=== PATIENT | female | born 1945 | race Caucasian/White ===

== ENCOUNTER → 2017-09-27 | Outpatient (CLI) | payer OTHER | END | disposition home or self-care (01) | LOC: C.PAPS 16:52 | PROVIDERS: ATTEND Obstetrics & Gynecology | DX: Z12.4 Encounter for screening for malignant neoplasm of cervix (principal) ==

== ENCOUNTER 2021-09-08 05:03 | Observation (INO) ==
--- NOTE | 2021-04-04 15:57 | PAT Medication Instructions ---
Medication Instructions Date of Service April 04, 2021 Home Medications amlodipine 2.5 mg tablet 2.5 mg PO QAM aspirin 81 mg tablet,delayed release (Adult Aspirin Regimen) 81 mg PO PM empagliflozin 25 mg tablet (Jardiance) 25 mg PO QAM glimepiride 4 mg tablet 4 mg PO QAM levothyroxine 75 mcg tablet (Levo-T) 75 mcg PO QAM lisinopril 20 mg-hydrochlorothiazide 25 mg tablet 1 tab PO BID metformin 1,000 mg tablet 1,000 mg PO BID rosuvastatin 5 mg tablet (Crestor) 5 mg PO 3XWK vitamin B complex (B Complex-Vitamin B12) 1 tab PO QAM multivitamin (Multiple Vitamins) 1 tab PO QAM coenzyme Q10 100 mg capsule (Co Q-10) 200 mg PO QAM gemfibrozil 600 mg tablet 600 mg PO BID icosapent ethyl 1 gram capsule (Vascepa) 2 g PO BID pregabalin 300 mg capsule (Lyrica) 300 mg PO BID Continue as directed rosuvastatin 5 mg tablet (Crestor) 5 mg PO 3XWK STOP taking 2 weeks before surgery coenzyme Q10 100 mg capsule (Co Q-10) 200 mg PO QAM icosapent ethyl 1 gram capsule (Vascepa) 2 g PO BID STOP taking 48 hours before surgery gemfibrozil 600 mg tablet 600 mg PO BID DO NOT take the morning of surgery empagliflozin 25 mg tablet (Jardiance) 25 mg PO QAM glimepiride 4 mg tablet 4 mg PO QAM lisinopril 20 mg-hydrochlorothiazide 25 mg tablet 1 tab PO BID metformin 1,000 mg tablet 1,000 mg PO BID vitamin B complex (B Complex-Vitamin B12) 1 tab PO QAM multivitamin (Multiple Vitamins) 1 tab PO QAM Take morning of surgery With a small sip of water, OTHERWISE NOTHING TO EAT OR DRINK AFTER MIDNIGHT: amlodipine 2.5 mg tablet 2.5 mg PO QAM levothyroxine 75 mcg tablet (Levo-T) 75 mcg PO QAM pregabalin 300 mg capsule (Lyrica) 300 mg PO BID Take evening before surgery aspirin 81 mg tablet,delayed release (Adult Aspirin Regimen) 81 mg PO PM lisinopril 20 mg-hydrochlorothiazide 25 mg tablet 1 tab PO BID metformin 1,000 mg tablet 1,000 mg PO BID pregabalin 300 mg capsule (Lyrica) 300 mg PO BID Other Notes If you have any questions please call us at [phone] or [phone] or [phone] or [phone]
--- NOTE | 2021-04-09 13:14 | Anesthesiology Consultation ---
Date of Service April 09, 2021 Assessment & Plan (1) Encounter for pre-operative examination: Chart Review Chart Review: Acceptable Risk for Surgery (pending cardio office visit scheduled 04/16 and preop Covid testing results ) and Patient seen in Pre Admission Testing -Awaiting routine cardio appt scheduled 04/16/21 (did write note to cardio re: cardiac murmur noted on exam) - Check BSG AM DOS Per PAT appt on 04/09/21, patient denies any recent travel or large group activities. No known Covid positive contacts or Covid related symptoms. No known Covid infection in the past 90 days. Pt is vaccinated for Covid. Preop Covid testing scheduled 05/06/21= will await results. Educated on importance of self quarantining, social distancing and wearing mask in public for the patient one week prior to surgery and after Covid testing done Teaching & Discussion Pre-Anesthesia Teaching/Discussion Notes: Instructed NPO after midnight before surgery,except medications with 15 cc of water. Medication instructions provided according to the PAT guidelines. History Surgery Operation Date: 05/08/21 08:50 Proposed Procedures p Right Total Hip Arthroplasty - Kip Cordoba MD Height/Weight Height: 5 ft 4 in Weight: 83.4 kg Allergies Allergy/AdvReac Type Severity Reaction Status Date / Time exenatide [From Byetta] AdvReac Intermediate NAUSEA, Verified 04/02/21 11:38 RASH liraglutide [From Victoza] AdvReac Intermediate RASH Verified 04/02/21 11:38 Medications Home Medications Medication Instructions Recorded Confirmed Last Taken amlodipine 2.5 mg tablet 2.5 mg PO QAM 09/18/19 04/02/21 Unknown aspirin 81 mg tablet,delayed 81 mg PO PM 09/18/19 04/02/21 Unknown release (Adult Aspirin Regimen) empagliflozin 25 mg tablet 25 mg PO QAM 09/18/19 04/02/21 Unknown (Jardiance) glimepiride 4 mg tablet 4 mg PO QAM 09/18/19 04/02/21 Unknown levothyroxine 75 mcg tablet 75 mcg PO QAM 09/18/19 04/02/21 Unknown (Levo-T) lisinopril 20 1 tab PO BID 09/18/19 04/02/21 Unknown mg-hydrochlorothiazide 25 mg tablet metformin 1,000 mg tablet 1,000 mg PO BID 09/18/19 04/02/21 Unknown rosuvastatin 5 mg tablet (Crestor) 5 mg PO 3XWK 09/18/19 04/02/21 Unknown vitamin B complex (B 1 tab PO QAM 09/18/19 04/02/21 Unknown Complex-Vitamin B12) multivitamin (Multiple Vitamins) 1 tab PO QAM 09/04/20 04/02/21 Unknown coenzyme Q10 100 mg capsule (Co 200 mg PO QAM 04/02/21 04/02/21 Unknown Q-10) gemfibrozil 600 mg tablet 600 mg PO BID 04/02/21 04/02/21 Unknown icosapent ethyl 1 gram capsule 2 g PO BID 04/02/21 04/02/21 Unknown (Vascepa) pregabalin 300 mg capsule (Lyrica) 300 mg PO BID 04/02/21 04/02/21 Unknown Past Medical History Medical History Diabetes mellitus, type 2 NIDDM Glucose stable Hyperlipidemia Elevated triglycerides Hypertension Hypothyroidism Michelle's neuroma of left foot Peripheral neuropathy bilat RBNARCISO crain Exercise / Class Metabolic Activity II 4-5 Yardwork/Stairs/Walk up hill (one flight of stairs- no chest pain or SOB ) Past Family History Family History Grandfather (Maternal) Throat cancer Aunt Diabetes Past Surgical History Surgical History History of appendectomy History of cholecystectomy History of colonoscopy History of tooth extraction with implant Past Anesthesia History No Hx of Anesthesia Complications and No Family Hx of Anesthesia Complications History of PONV No Hx of PONV and No Hx of Motion Sickness Social History Smoking Status: Never smoker Do You Dip or Chew Tobacco: No Hx Alcohol Use: No Hx Substance Use: No substance use type: does not use Review of Systems Patient denies chest pain, shortness of breath, dyspnea on exertion, reflux, cough, wheezing, palpitations. No hx of seizures, stroke, RI, apnea/snoring. No hx of blood clots or blood transfusions Physical Exam Vital Signs VITALS BP 122/68 P 51 TEMP 98.4 SP02 96% RESP 16 Constitutional no acute distress ENMT Mouth: no TMJ clicking Thyromental Distance: < 3.5 Finger Breadths (3.0) Mallampati Class: III Neck + short neck and + limited neck extension (moderate ) Respiratory normal respiratory effort; no respiratory distress Auscultation: lungs clear to auscultation bilaterally; no wheezes Cardiovascular Rate/Rhythm: regular rate and regular rhythm Heart Sounds: + murmur (III/ murmur ) Vessels: no carotid bruit Musculoskeletal Spine: no pain with cervical ROM Extremities: extremities normal to inspection Psychiatric Orientation: alert Lab Results Anesthesia Preop Results Results Anesthesia Widget: WBC 3.14 K/uL (4.8-10.8) L 04/09/21 Hgb 12.9 g/dL (12.0-16.0) 04/09/21 Hct 38.4 % (37-47) 04/09/21 Plt 205 K/uL (130-400) 04/09/21 Na 140 mmol/L (136-145) 04/09/21 K 4.1 mmol/L (3.5-5.1) 04/09/21 Cl 106 mmol/L (98-107) 04/09/21 CO2 25 mmol/L (21-32) 04/09/21 BUN 37 mg/dl (7-18) H 04/09/21 Creat 1.06 mg/dl (0.6-1.2) 04/09/21 Glucose Level 97 mg/dl (70-99) 04/09/21 PT 10.3 Seconds (9.0-12.0) 04/09/21 PTT 31.8 Seconds (21.0-31.0) H 04/09/21 INR 1.0 (0.9-1.1) 04/09/21 HA1c 6.3 % (4.5-5.6) H 04/09/21 Blood Type A Positive 04/09/21 Antibody Screen NEGATIVE 04/09/21 Testing Electrocardiogram Date: 04/09/21 Findings: + SB @ (50 bpm) Right bundle branch block. Chest X-Ray Date: 04/09/21 Findings: + NAD and + cardiomegaly (Mild) Echocardiogram Date: 09/06/18 EF: 58% LV Function: normal RWMA: + none Other Findings: + LVH (mild/concentric ) and + diastolic dysfunction (Grade 1) Sigmoid appearing septum. Mild aortic valve sclerosis without stenosis.
--- NOTE | 2021-09-04 10:13 | Anesthesiology Consultation ---
Date of Service September 04, 2021 Assessment & Plan (1) Encounter for pre-operative examination: - abnormal pre-op labs: Case discussed with Dr. Curry who advised patient is acceptable risk to proceed for surgery with mildly elevated PTT with PT, INR within normal range and leukopenia in similar range to 03/2021 labs, platelets, Hgb and Hct within normal range. Will fax copy of results to PCP for continuity of care. - check BSG am DOS. - surgery re-scheduled from 05/08/2021 to 09/08/2021. Pt had PAT clinic appointment 04/09/2021: " Pt procedure rescheduled to 06/24/21; per Dr. Bundy review- patient is NOT an Outpatient Joint candidate Pt seen by cardio 04/16/21= seen for cardio follow up and preoperative evaluation. Pt scheduled for upcoming right TASHI. Functional capacity well above 5 METs. Overall heart systolic function is normal.Very low-grade murmur consistent - patient has known aortic sclerosis.Continue current medication as prescribed. " No cardiac contraindications to hip surgery as planned." Follow up in six months" - COVID screening: Per shoe repairer helper on 09/03/2021: Travel screen negative, no known COVID-19 positive contacts or current COVID-19 related symptoms in past 2 weeks. Patient vaccinated. Surgeon arranging preop COVID testing, scheduled 09/04/2021. Awaiting results. Chart Review Chart Review: Acceptable Risk for Surgery and Patient NOT seen in Pre Admission Testing History Surgery Operation Date: 05/08/21 08:50 Proposed Procedures p Right Total Hip Arthroplasty - Kip Cordoba MD Operation Date: 09/08/21 07:00 Proposed Procedures p Right Total Hip Replacement - Kip Cordoba MD Height/Weight Height: 5 ft 4 in Weight: 83.4 kg Allergies Allergy/AdvReac Type Severity Reaction Status Date / Time exenatide [From Byetta] AdvReac Intermediate NAUSEA, Verified 06/13/21 10:08 RASH liraglutide [From Victoza] AdvReac Intermediate RASH Verified 06/13/21 10:08 Medications Home Medications Medication Instructions Recorded Confirmed Last Taken amlodipine 2.5 mg tablet 2.5 mg PO QAM 09/18/19 09/03/21 Unknown aspirin 81 mg tablet,delayed 81 mg PO PM 09/18/19 09/03/21 Unknown release (Adult Aspirin Regimen) empagliflozin 25 mg tablet 25 mg PO QAM 09/18/19 09/03/21 Unknown (Jardiance) levothyroxine 75 mcg tablet 75 mcg PO QAM 09/18/19 09/03/21 Unknown (Levo-T) lisinopril 20 1 tab PO BID 09/18/19 09/03/21 Unknown mg-hydrochlorothiazide 25 mg tablet metformin 1,000 mg tablet 1,000 mg PO BID 09/18/19 09/03/21 Unknown rosuvastatin 5 mg tablet (Crestor) 5 mg PO 3XWK 09/18/19 09/03/21 Unknown vitamin B complex (B 1 tab PO QAM 09/18/19 09/03/21 Unknown Complex-Vitamin B12) multivitamin (Multiple Vitamins) 1 tab PO QAM 09/04/20 09/03/21 Unknown coenzyme Q10 100 mg capsule (Co 200 mg PO QAM 04/02/21 09/03/21 Unknown Q-10) gemfibrozil 600 mg tablet 600 mg PO BID 04/02/21 09/03/21 Unknown icosapent ethyl 1 gram capsule 2 g PO BID 04/02/21 09/03/21 Unknown (Vascepa) pregabalin 300 mg capsule (Lyrica) 300 mg PO BID 04/02/21 09/03/21 Unknown glipizide 2.5 mg tablet, extended 2.5 mg PO QAM 04/16/21 09/03/21 Unknown release 24 hr biotin 1 mg tablet 1 mg PO QAM 09/03/21 09/03/21 Unknown Past Medical History Medical History Diabetes mellitus, type 2 NIDDM Glucose stable Hyperlipidemia Elevated triglycerides Hypertension Hypothyroidism Michelle's neuroma of left foot Peripheral neuropathy bilat JUDE crain Past Family History Family History Grandfather (Maternal) Throat cancer Aunt Diabetes Other No family history of adverse response to anesthesia Past Surgical History Surgical History History of appendectomy History of cholecystectomy History of colonoscopy History of tooth extraction with implant Social History Smoking Status: Never smoker Do You Dip or Chew Tobacco: No Hx Alcohol Use: No Hx Substance Use: No substance use type: does not use Lab Results Anesthesia Preop Results Results Anesthesia Widget: WBC 3.19 K/uL (4.8-10.8) L 09/04/21 Hgb 12.4 g/dL (12.0-16.0) 09/04/21 Hct 37.6 % (37-47) 09/04/21 Plt 181 K/uL (130-400) 09/04/21 Na 139 mmol/L (136-145) 09/04/21 K 3.6 mmol/L (3.5-5.1) 09/04/21 Cl 104 mmol/L (98-107) 09/04/21 CO2 26 mmol/L (21-32) 09/04/21 BUN 37 mg/dl (6-23) H 09/04/21 Creat 1.04 mg/dl (0.6-1.2) 09/04/21 Glucose Level 120 mg/dl (70-99(Fasting)) H 09/04/21 PT 10.5 Seconds (9.0-12.0) 09/04/21 PTT 34.3 Seconds (21.0-31.0) H 09/04/21 INR 1.0 (0.9-1.1) 09/04/21 Blood Type A Positive 09/04/21 Antibody Screen NEGATIVE 09/04/21 Testing Electrocardiogram Date: 04/09/21 Findings: + SB @ (50 bpm) Right bundle branch block. Chest X-Ray Date: 04/09/21 Findings: + NAD and + cardiomegaly (Mild) Echocardiogram Date: 09/06/18 EF: 58% LV Function: normal RWMA: + none Other Findings: + LVH (mild/concentric ) and + diastolic dysfunction (Grade 1) Sigmoid appearing septum. Mild aortic valve sclerosis without stenosis.
--- NOTE | 2021-09-06 09:53 | History and Physical Report ---
DATE OF ADMISSION: 09/08/2021. CHIEF COMPLAINT: Persistent and progressive right hip pain. HISTORY OF PRESENT ILLNESS: The patient is a 76-year-old female who presents for surgical treatment of her right hip. She has got a long history of right hip pain and discomfort. She describes it gotten worse over time. She describes mostly groin and thigh pain radiating down to her knee. She has got some lateral hip pain as well. It hurts her all the time. She limps more as the day goes on. She has difficulty putting her shoes and socks on. Her walking tolerance is a couple blocks at best. She is having difficulty maintaining any degree of active and independent lifestyle. She would like to have her hip fixed. She has been scheduled several times and rescheduled due to the COVID epidemic. PAST MEDICAL HISTORY: 1. Hypertension. 2. Elevated cholesterol. 3. Unspecified neuropathy. 4. Diabetes type 2 with an A1c of 6.3. 5. Previous surgeries include cholecystectomy. ALLERGIES: BYETTA AND VICTOZA. CURRENT MEDICATIONS: Include: 1. Amlodipine 2.5 mg. 2. Aspirin 81 mg daily. 3. Coenzyme Q. 4. Jardiance 25 mg. 5. Gemfibrozil. 6. Glimepiride. 7. Levothyroxine 75 mcg a day. 8. Metformin. 9. Multivitamin. 10. Hancock 3. 11. Lyrica. 12. Crestor. 13. Vitamin B. SOCIAL HISTORY: A 76-year-old female. She lives in [place]. She is . Does not smoke. FAMILY HISTORY: Noncontributory. REVIEW OF SYSTEMS: Significant for diabetes. A1c is pretty well controlled. No chest pain or shortness of breath. No history of DVT or PE. No known bleeding problems. PHYSICAL EXAMINATION: GENERAL: Shows a pleasant middle-aged female, looks to be in pretty good health. HEENT: Benign. NECK: Supple. No lymphadenopathy. LUNGS: Clear to auscultation. HEART: Has a regular rate and rhythm. ABDOMEN: Soft, nontender, nondistended. EXTREMITIES: Grossly neurovascularly intact except as follows. Examination of the right hip and leg reveals the patient walks with a bit of an antalgic gait. She limps on the right side. Leg lengths appear pretty equal. She has got a very stiff hip with internal rotation to neutral at best. This re-creates pain. Negative straight leg raise. No knee effusion. X-RAYS: X-rays of the right hip were reviewed and show advanced right hip DJD. She has complete loss of joint space superiorly. She has got cystic changes in the femoral head and acetabulum. ASSESSMENT: A 76-year-old female with several medical comorbidities including diabetes, hypertension, elevated cholesterol, unspecified neuropathy with advanced right hip degenerative joint disease. She has failed conservative measures. She has been scheduled several times for hip replacement and canceled due to the COVID issues. She is really hoping to get her hip fixed. PLAN: We will proceed with right total hip replacement. The risks and benefits of this procedure were explained to the patient, it include but not limited to DVT, PE, , infection, neurological injury, vascular injury, bleeding problem, pain, limited range of motion, stiffness, failure to relieve her symptoms, incomplete relief of symptoms, need for further surgery in the future, dislocation, etc. The patient understands and desires to proceed. Informed consent was obtained. She knows to hold her metformin on the morning of surgery. Job ID: [id number] [facility]
[~2021-09-08 05:03] MED LIST: ACETAMINOPHEN 500 MG TAB PO SCH; FAMOTIDINE 20 MG TAB PO SCH; GABAPENTIN 300 MG CAP PO SCH; LR 500ML BOLUS, THEN 15ML/HR IV SCH; LR 60ML/HR IV SCH; METOCLOPRAMIDE HCL 10 MG TABLET PO SCH; TRANEXAMIC ACID 1,000 MG **IV Pre-op IV SCH; ceFAZolin 2000MG 2,000 MG/15 ML SYR IV SCH
[2021-09-08] MEDS ORDERED: LR 60ML/HR IV SCH (06:00)
[2021-09-08] MEDS ORDERED: TRANEXAMIC ACID 1,000 MG **IV Pre-op IV SCH (06:00)
[2021-09-08] MEDS ORDERED: METOCLOPRAMIDE HCL 10 MG TABLET PO SCH (06:00)
[2021-09-08] MEDS ORDERED: GABAPENTIN 300 MG CAP PO SCH (06:00)
[2021-09-08] MEDS ORDERED: ceFAZolin 2000MG 2,000 MG/15 ML SYR IV SCH (06:00)
[2021-09-08] MEDS ORDERED: ACETAMINOPHEN 500 MG TAB PO SCH (06:00)
[2021-09-08] MEDS ORDERED: FAMOTIDINE 20 MG TAB PO SCH (06:00)
[2021-09-08] MEDS ORDERED: BUPIVACAINE 0.5 % 5 MG/1 ML PF 10ML VIAL ONE (06:19)
[2021-09-08] MEDS ORDERED: EPINEPHrine INJ 1 MG/ML AMP ONE (06:34)
[2021-09-08] MEDS ORDERED: BUPIVACAINE 0.5 % 5 MG/1 ML MPF 30ML VIAL ONE (06:34)
[2021-09-08] MEDS ORDERED: MIDAZOLAM HCL 1 MG/ML 2ML VIAL ONE (06:36)
--- NOTE | 2021-09-08 07:01 | History & Physical Bridge Note ---
Date of Service September 08, 2021 History & Physical Bridge Note I have examined the patient, reviewed the History & Physical and in the interval since the performance of the History & Physical I have noted the following changes of clinical significance: no changes noted
[2021-09-08] MEDS ORDERED: MoRPHine SULFATE PF 1 MG/ML 10 ML AMP/VIAL ONE (07:02)
[2021-09-08] MEDS ORDERED: NALBUPHINE HCL INJ 10 MG/ML AMP IV PRN (07:07)
[2021-09-08] MEDS ORDERED: MoRPHine SULFATE PF 1 MG/ML 10 ML AMP/VIAL INT SPINAL ONE (07:07)
[2021-09-08] MEDS ORDERED: NALOXONE HCL 0.4 MG/1 ML VIAL/CARP IV PRN ×2 (07:07→10:39)
[2021-09-08] MEDS ORDERED: ATROPINE SULFATE 0.1 MG/ML 10ML SYR IV PRN (07:07)
[2021-09-08] MEDS ORDERED: NALOXONE HCL 0.08 MG in SYRINGE 1.8 ML IV PRN (07:07)
[2021-09-08] MEDS ORDERED: fentaNYL citrate 100 MCG/2 ML VIAL IV PRN (07:07)
[2021-09-08] MEDS ORDERED: ePHEDrine sulfate 50 MG/ML AMP IV PRN ×2 (07:07)
[2021-09-08] MEDS ORDERED: diphenhydrAMINE 50 MG/ML VIAL IV PRN (07:07)
[2021-09-08] MEDS ORDERED: NALOXONE HCL 1 MG in SODIUM CHLORIDE 0.9% 1000ML 1,000 ML IV PRN (07:07)
[2021-09-08] MEDS ORDERED: LACTATED RINGER'S 500 ML IV PRN (07:07)
[2021-09-08] MEDS ORDERED: ONDANSETRON INJ 2 MG/ML 2 ML VIAL IV PRN ×2 (07:07)
[2021-09-08] MEDS ORDERED: MoRPHine SULFATE 2 MG/ML CARP IV PRN (07:07)
[2021-09-08] MEDS ORDERED: NO NARCOTICS OR SEDATIVES SCH (07:15)
[2021-09-08] MEDS ORDERED: SODIUM CHLORIDE 0.9% 1000ML 1,000 ML IV SCH (07:15)
[2021-09-08] MEDS ORDERED: ONDANSETRON INJ 2 MG/ML 2 ML VIAL ONE (07:20)
[2021-09-08] MEDS ORDERED: PROPOFOL IV EMULSION 10 MG/ML 20 ML VIAL IV ONE (07:20)
[2021-09-08] MEDS ORDERED: LIDOCAINE 2% 2 ML VIAL/AMP(20MG/ML) INFIL ONE (07:20)
[2021-09-08] MEDS ORDERED: ePHEDrine sulfate 50 MG/ML SYR ONE (07:33)
--- NOTE | 2021-09-08 08:46 | Operative Report ---
Post Operative Report Pre & Post Diagnosis Operation Date: 05/08/21 08:50 <No data on this case meets the specified criteria> Operation Date: 09/08/21 07:00 Pre-Op Diagnosis: Right Hip Osteoarthritis Post-Op Diagnosis: Right Hip Osteoarthritis I identified the patient and participated in the time-out.: Yes Procedure Operation Date: 05/08/21 08:50 <No data on this case meets the specified criteria> Operation Date: 09/08/21 07:00 Actual Procedures p Right Total Hip Arthroplasty, Uncemented(Right) - Kip Cordoba MD Surgeon Kip Cordoba MD Commissions Specialist Darius Go PA-C Estimated Blood Loss 200 Findings Consistent with Post-Op Diagnosis Operative findings were advanced right hip DJD. She had grade 4 [id number] disease of the femoral head and acetabulum. Significant osteophytes around the femoral head. Fairly large hip joint effusion. Fluids 1100 cc Specimens Right femoral head sent for pathology Drains None Anesthesia Type Spinal MAC Complications none Disposition Accompanied Patient To Recovery: Yes Indications Patient is 76-year-old female has had a several year history of increasing right hip pain discomfort is gotten significant worse over the past year. She failed all conservative measures. X-rays show advanced hip arthritis. She elected proceed with surgical treatment. Description of Procedure Operative implants consist of: 1. Biomet G7 size 52 mm acetabular shell. 2. 6.5 cancellous acetabular screws 1 of 35 mm length by 30 mm length. 3. Banks hole business process engineer. 4. Highly cross-linked polyethylene liner with a 52 mm outer diameter and 36 mm diameter. 5. DePuy Corail size 9 standard femoral neck. 6. +1.5/36 mm ceramic articular ball. The patient was taken the operating, identified, and placed on the operating table supine position protectors were properly padded. IV antibiotics tried by anesthesia team. A spinal anesthetic had been implemented holding area. Otto catheter was placed in sterile fashion. Patient then placed in the left lateral cubitus position. Axillary roll was placed. Stulberg hip positioner was used for positioning. The right hip and leg were then prepped and draped in usual sterile fashion. A posterior lateral approach of the right hip was then performed to a curvilinear incision centered over the greater trochanter. Sharp dissection got through subcutaneous tissue down below the IT band gluteal fascia the IT band gluteal fascia then incised longitudinally in line with the skin incision. The underlying greater bursa was excised. The piriformis and external rotators and the posterior hip joint capsule were then taken off the posterior aspect of hip as a single layer. Great care was taken throughout the procedure protect the sciatic nerve at all times. Hip was internally rotated and dislocated. Femoral neck osteotomy cut was made with Final Cut about 8 mm above the lesser trochanter. Femoral head was removed and sent for pathology. The femur was retracted anteriorly. Attention drawn the acetabulum. The acetabular labrum was excised per the pulmonary fat was excised. Sequential reaming the acetabular was then performed performed beginning with size 43 and progressing up to 51. We did reamed a little bit with a 52 reamer and then placed a 52 mm Biomet G7 acetabular shell in about 40 degrees lateral opening and 20 degrees of anteversion. It was fixed with two 6.5 cancellous acetabular screws. An anterior osteophyte was removed. Trial liner was placed. Attention drawn the femur. The proximal femur was entered with a cookie-cutter followed by canal finder. I then broached beginning with size 8 and progressed to a 9. Her medial calcar was fairly thick and the residual calcar had really not much cancellous bone. Therefore we stopped at the 9. We trialed the hip. We tried both a standard in the short neck and standard with a +5 head seemed a little bit tight but the short neck seemed a little loose and sure. I therefore elected to place a +1.5 head with the standard neck. All trial implants were removed. An apex hole business process engineer was placed but highly cross-linked polyethylene liner was placed. A DePuy size 9 standard femoral stem was impacted in position. A +1.5/36 mm ceramic attention drawn toward closing. The wound was irrigated closed muscle pulsatile lavage solution. We did inject with 40 cc of half percent Marcaine with epinephrine. Posterior capsule and external rotators were repaired as a single layer through drill holes in the posterior trochanter. The IT band was then closed with #1 PDS suture in running fashion the subcutaneous tissues then closed with 2 layers the deep layer #2 Vicryl suture in buried interrupted fashion the subcutaneous tissue with 2-0 Dexon suture in a buried interrupted fashion the skin was then closed with skin julio. Leg was then cleaned and dried a sterile dressing was Xeroform, 4 x 4's, ABD pad and foam tape was applied. Patient then transferred to the recovery room in stable condition. Patient tolerated procedure well and there were no complications. Darius Go, my physician broker assistant, was present for the entire procedure. His assistance was essential and required for appropriate patient positioning, prepping and draping, surgical exposure, performing the technical details of the operation, placement the implants, closure of the wound, and placement of the sterile bandage.. I attest to the content of the Intraoperative Record and any orders documented therein. Any exceptions are noted below.
--- NOTE | 2021-09-08 09:17 | XRay Report ---
XR hip 1V RT w pelvis CLINICAL HISTORY: Postoperative evaluation. COMPARISON: Pelvis and right hip radiographs March 17, 2021. FINDINGS: Alignment of the total right hip arthroplasty is anatomic. There is no periprosthetic frac ture or unexpected radiopaque foreign body. Acetabular screws are noted. There are skin julio. IMPRESSION: Expected findings following total right hip arthroplasty. ACT 112: Negative or not required by law. Electronically signed by: Eddie Francois M.D. 09/08/2021 9:15 AM
[2021-09-08] MEDS ORDERED: ALUMINUM/MAGNESIUM SUSP 30 ML UDC PO PRN (10:39)
[2021-09-08] MEDS ORDERED: NON-FORMULARY MEDICATION (Multivitamin [Multiple Vitamins] tablet) PO SCH (10:39)
[2021-09-08] MEDS ORDERED: glipiZIDE ER 2.5 MG TABCR PO SCH (10:39)
[2021-09-08] MEDS ORDERED: NON-FORMULARY MEDICATION (Biotin 1 mg Tablet) PO SCH (10:39)
[2021-09-08] MEDS ORDERED: NON-FORMULARY MEDICATION (Coenzyme Q10 [Co Q-10] 100 mg Capsule) PO SCH (10:39)
[2021-09-08] MEDS ORDERED: MAGNESIUM HYDROXIDE SUSP 30 ML UDC PO PRN (10:39)
[2021-09-08] MEDS ORDERED: GLUCAGON FOR INJ 1 MG VIAL SQ PRN (10:39)
[2021-09-08] MEDS ORDERED: GLUCOSE 40% GEL 15 GM TUBE PO PRN (10:39)
[2021-09-08] MEDS ORDERED: CARBOHYDRATES FOR HYPOGLYCEMIA PO PRN (10:39)
[2021-09-08] MEDS ORDERED: PHARMACY GLYCEMIC MGMT CONSULT PRN (10:39)
[2021-09-08] MEDS ORDERED: GLUCOSE 10 TABS/TUBE PO PRN (10:39)
[2021-09-08] MEDS ORDERED: bisacodyL 10 MG SUPP PR PRN (10:39)
[2021-09-08] MEDS ORDERED: DEXTROSE 50% 50 ML SYRINGE IV PRN (10:39)
--- NOTE | 2021-09-08 11:07 | Anesthesiology Progress Note ---
Date of Service September 08, 2021 Anesthesia Post Procedure Vital Signs Vital Signs: Temp Pulse Pulse Resp BP Pulse Ox Pulse Ox 09/08/21 10:35 36.3 C L 52 L 12 104/58 L 100 100 09/08/21 10:20 36.4 C L 59 L 16 106/53 L 99 09/08/21 10:10 50 L 14 106/52 L 99 09/08/21 10:00 55 L 18 115/64 100 09/08/21 09:50 49 L 14 107/49 L 99 09/08/21 09:40 47 L 12 105/48 L 100 09/08/21 09:30 48 L 17 109/48 L 94 09/08/21 09:20 52 L 11 L 99/44 L 100 09/08/21 09:10 61 17 97/45 L 96 09/08/21 09:00 64 23 108/37 L 100 09/08/21 08:50 66 16 116/44 L 100 09/08/21 08:40 73 22 104/53 L 100 09/08/21 08:34 36.2 C L 66 16 99/45 L 100 09/08/21 05:37 36.8 C 50 L 18 168/66 H 99 Notes Mental Status: alert / awake / arousable and participated in evaluation Patient Amnestic to Procedure: No Nausea / Vomiting: adequately controlled Pain: adequately controlled Airway Patency, RR, SpO2: stable & adequate BP & HR: stable & adequate Hydration State: stable & adequate Neuraxial Anesthesia: was administered and sensory block is resolving Anesthetic Complications: no major complications apparent and Pt Satisfied with anesthetic care
[2021-09-08] MEDS ORDERED: amLODIPine BESYLATE 5 MG TAB PO SCH (11:30)
[2021-09-08] MEDS ORDERED: gemfibroziL 600 MG TAB PO ONE (11:30)
[2021-09-08] MEDS ORDERED: ASPIRIN 81 MG ECTAB PO ONE (11:30)
[2021-09-08] MEDS ORDERED: LISINOPRIL/HCTZ 20/25MG 1 TAB PO ONE (11:30)
[2021-09-08] MEDS ORDERED: ROSUVASTATIN CALCIUM 5 MG TAB PO ONE (11:30)
[2021-09-08] MEDS ORDERED: DOCUSATE SODIUM/SENNA 50/8.6MG TAB PO ONE (11:30)
[2021-09-08] MEDS ORDERED: INSULIN GLARGINE SOLOSTAR 100 UNITS/ML 3 ML PEN SC ONE (12:00)
[2021-09-08] MEDS: SODIUM CHLORIDE 0.9% 1000ML 1,000 ML IV SCH ×2 (12:13→20:25)
[2021-09-08] MEDS: KETOROLAC TROMETHAMINE 15 MG/ML VIAL IV SCH ×2 (12:20→16:56)
[2021-09-08] MEDS: INSULIN ASPART PER UNIT SC SCH ×3 (12:28→21:21)
--- NOTE | 2021-09-08 13:42 | Pharmacy Report ---
Pharmacy Glycemic Short Note 2 - Date of Service September 08, 2021 - Glycemic Short BSG Results (Last 24 hours): 09/08/21 09/08/21 09/08/21 05:22 08:35 11:36 POC Glucose 130 H 195 H 127 H OUTPATIENT ANTIDIABETIC REGIMEN: * Glipizide ER 2.5 mg PO daily * Jardiance 25 mg PO qAM * metformin 1 gm PO BID ASSESSMENT: * Ms Morrison is a 76 y/o F with a PMH of T2DM controlled on three oral medications. * Fasting BSG today was 130 mg/dL and 195 mg/dL postop. * Lantus 0.2 units/kg as expect patient to require some basal insulin as she is on three oral agents. Subsequent dosing based upon fasting BSG. * Novolog weight-based stress of 2-3. PLAN FOR INPATIENT GLYCEMIC CONTROL: * Hold outpatient oral diabetes medications * Basal insulin * Lantus 20 units SQ x 1 then dosing based upon patient response * Bolus insulin * NovoLog per scale ACHS or Q6hrs while NPO * Goal Range: Low 110 mg/dL - High 140 mg/dL * Correction Factor: 25 mg/dL/unit * Nutritional / Prandial insulin per carb ratio of 1 unit per 7 grams CHO consumed PLAN FOR DISCHARGE: * TBD- HbA1C ordered
[2021-09-08] MEDS: ACETAMINOPHEN 500 MG TAB PO SCH ×2 (13:47→21:21)
[2021-09-08] MEDS ORDERED: TRANEXAMIC ACID / 0.7% NACL 1,000 MG/100 ML BAG IV SCH (14:45)
[2021-09-08] MEDS: VASCEPA~ORDER AWAITING ACTION SCH (16:44)
[2021-09-08] MEDS: ceFAZolin 2000MG 2,000 MG/15 ML SYR IV SCH (16:45)
[2021-09-08] MEDS: ASCORBIC ACID 500 MG TAB PO SCH (16:46)
[2021-09-08] MEDS: ASPIRIN 81 MG ECTAB PO SCH (20:27)
[2021-09-08] MEDS: DOCUSATE SODIUM 100 MG CAP PO SCH (20:27)
[2021-09-08] MEDS: LISINOPRIL/HCTZ 20/25MG 1 TAB PO SCH (20:27)
[2021-09-08] MEDS: gemfibroziL 600 MG TAB PO SCH (20:28)
[2021-09-08] MEDS: PREGABALIN 150 MG CAP PO SCH (20:35)
[2021-09-08] MEDS ORDERED: SENNA 8.6 MG TAB PO SCH (21:00)
[2021-09-09] MEDS: VASCEPA~ORDER AWAITING ACTION SCH ×2 (00:34→09:17)
[2021-09-09] MEDS: KETOROLAC TROMETHAMINE 15 MG/ML VIAL IV SCH ×2 (00:37→05:48)
[2021-09-09] MEDS: ceFAZolin 2000MG 2,000 MG/15 ML SYR IV SCH (00:37)
[2021-09-09] MEDS ORDERED: HYDROmorphone INJ 0.5 MG/0.5 ML SYR IV PRN (01:07)
[2021-09-09] MEDS ORDERED: ONDANSETRON INJ 2 MG/ML 2 ML VIAL IV PRN (01:07)
[2021-09-09] MEDS ORDERED: traMADol HCL 50 MG TABLET PO PRN (01:07)
[2021-09-09] MEDS ORDERED: DC INTRASPINAL MORPHINE SCH (01:07)
[2021-09-09] MEDS ORDERED: ONDANSETRON 4 MG OD TAB PO PRN (01:07)
[2021-09-09] MEDS ORDERED: METOCLOPRAMIDE HCL INJ 5 MG/ML 2 ML VIAL IV PRN (01:07)
[2021-09-09] MEDS ORDERED: diphenhydrAMINE 50 MG/ML VIAL IV STA (03:59)
[2021-09-09] MEDS: ACETAMINOPHEN 500 MG TAB PO SCH ×2 (05:48→14:48)
[2021-09-09 06:24] LABS: Eosinophils # (auto) 0.08 K/uL (0-0.5); Eosinophils % (auto) 1.9 %; Hematocrit (blood only) 32.1 % (37-47); Hemoglobin 10.6 g/dL (12.0-16.0); Lymphocytes # (auto) 0.76 K/uL (1.2-3.4); Lymphocytes % (auto) 17.9 %; Mean Corpuscular Hemoglobin 29.9 pg (25-34); Mean Corpuscular Volume 90.7 fL (80-100); Mean Platelet Volume 10.8 fL (7.4-10.4); Monocytes # (auto) 0.13 K/uL (0.11-0.59); Monocytes % (auto) 3.1 %; Neutrophils # (auto) 3.27 K/uL (1.4-6.5); Neutrophils % (auto) 77.1 %; Platelet Count 150 K/uL (130-400); RDW Coefficient of Variation 14.2 % (11.5-14.5); RDW Standard Deviation 46.7 fL (36.4-46.3); Red Blood Count 3.54 M/uL (4.2-5.4); White Blood Count 4.24 K/uL (4.8-10.8)
[2021-09-09] MEDS ORDERED: LEVOTHYROXINE SODIUM 75 MCG TABLET PO SCH (06:30)
[2021-09-09 06:55] LABS: BUN Creatinine Ratio 28.6 (10-20); Calcium 7.9 mg/dl (8.5-10.1); Creatinine Clr Calc Pharmacy 39.2 ml/min; Est GFR (African American) 45.5 ml/min; Est GFR (Non-African American) 39.3 ml/min; Potassium 3.5 mmol/L (3.5-5.1)
[2021-09-09 07:45] LABS: Estimated Average Glucose 146 mg/dl; Hemoglobin A1C 6.7 % (4.5-5.6)
[2021-09-09] MEDS ORDERED: INSULIN GLARGINE SOLOSTAR 100 UNITS/ML 3 ML PEN SC SCH (09:00)
[2021-09-09] MEDS ORDERED: DOCUSATE SODIUM/SENNA 50/8.6MG TAB PO SCH (09:00)
[2021-09-09] MEDS ORDERED: MULTIVITAMIN TAB PO SCH (09:00)
[2021-09-09] MEDS ORDERED: amLODIPine BESYLATE 5 MG TAB PO SCH (09:00)
[2021-09-09] MEDS ORDERED: VITAMIN B COMPLEX TAB PO SCH (09:00)
[2021-09-09] MEDS: ASPIRIN 81 MG ECTAB PO SCH (09:05)
[2021-09-09] MEDS: ASCORBIC ACID 500 MG TAB PO SCH (09:06)
[2021-09-09] MEDS: gemfibroziL 600 MG TAB PO SCH (09:07)
[2021-09-09] MEDS: DOCUSATE SODIUM 100 MG CAP PO SCH (09:07)
[2021-09-09] MEDS: LISINOPRIL/HCTZ 20/25MG 1 TAB PO SCH (09:09)
[2021-09-09] MEDS: INSULIN ASPART PER UNIT SC SCH ×2 (09:14→12:57)
[2021-09-09] MEDS: PREGABALIN 150 MG CAP PO SCH (09:16)
--- NOTE | 2021-09-09 10:29 | Progress Notes ---
DATE OF SERVICE: 09/09/2021. SUBJECTIVE: A 76-year-old female, now postoperative day 1 from a right uncemented total hip replacem ent. She has done pretty well. Really not having much pain. She is a little hypotensive when they get her up, but no symptoms from this. No chest pain or shortness of breath. Did have a little bit of a reaction to some medicine and took some Benadryl, has had a little bit of swelling and edema. N o chest pain or shortness of breath. OBJECTIVE: VITAL SIGNS: Temperature 36.9. Vital signs are stable. Blood pressure 87/48. GENERAL: Shows a pleasant, elderly female. She is sitting up in bed and looks comfortable. LUNGS: Clear to auscultation. HEART: Regular rate and rhythm. ABDOMEN: Soft, nontender, nondistended. EXTREMITIES: Grossly neurovascularly intact except as follows: Examination of the right hip reveals the leg to be well aligned. Dressing is clean, dry and intact. She can dorsiflex and plantarflex h er foot appropriately. She is neurologically intact. LABORATORY DATA: Hemoglobin is 10.6. Hematocrit 32.1. Electrolytes are stable. Creatinine is just slightly elevated. ASSESSMENT: A 76-year-old female postoperative day 1 from right hip replacement, doing pretty well. A little hypotensive, likely related to the spinal. Creatinine is also just a little bit elevated. Pain is controlled. Hip is located. She is neurologically intact. PLAN: 1. DVT prophylaxis includes thigh-high TEDs, SCDs, and aspirin twice a day. 2. PT/OT. She can weight bear as tolerated. Right total hip protocol. 3. Pain control, doing okay with current pain regimen. 4. Hypotension. We are going to hold her blood pressure meds for now. I am sure once the effects o f the spinal wear off, this will resolve. 5. Elevated creatinine. We are going to stop her Toradol. Encourage p.o. hydration. 6. Disposition: Plan is to discharge her to home once medically stable. We will see how she does i n therapy today. Job ID: [id number]
--- NOTE | 2021-09-09 12:15 | Pharmacy Report ---
Pharmacy Glycemic Short Note 2 - Date of Service September 09, 2021 - Glycemic Short BSG Results (Last 24 hours): 09/08/21 09/08/21 09/08/21 16:52 18:00 20:37 Glucose POC Glucose 109 H 133 H 159 H 09/09/21 09/09/21 09/09/21 05:42 07:57 11:47 Glucose 145 H POC Glucose 147 H 179 H OUTPATIENT ANTIDIABETIC REGIMEN: * Glipizide ER 2.5 mg PO daily * Jardiance 25 mg PO qAM * metformin 1 gm PO BID ASSESSMENT: 09/09/21 * BSGs yesterday were [phone] mg/dL and fasting today is 147 mg/dL. * Continue Lantus 20 units daily (25 units available if BSG > 150 mg/dL fasting). * Tighten Novolog CR slightly as BSG trended upwards at dinnertime. * Continue to hold metformin secondary to MI. Background * Ms Morrison is a 76 y/o F with a PMH of T2DM controlled on three oral medications. * Fasting BSG today was 130 mg/dL and 195 mg/dL postop. * Lantus 0.2 units/kg as expect patient to require some basal insulin as she is on three oral agents. Subsequent dosing based upon fasting BSG. * Novolog weight-based stress of 2-3. PLAN FOR INPATIENT GLYCEMIC CONTROL: * Hold outpatient oral diabetes medications- will not resume metformin today due to MI. * Basal insulin * Lantus 20 units SQ daily (25 units if BSG > 150 mg/dL) * Bolus insulin * NovoLog per scale ACHS or Q6hrs while NPO * Goal Range: Low 110 mg/dL - High 140 mg/dL * Correction Factor: 25 mg/dL/unit * Nutritional / Prandial insulin per carb ratio of 1 unit per 6 grams CHO consumed PLAN FOR DISCHARGE: * HbA1C at goal for patient (goal < 7% and currently at 6.7%). * Continue current regimen.
--- NOTE | 2021-09-10 08:48 | Discharge Summary ---
Date of Service September 10, 2021 Discharge Data Procedures Performed Operation Date: 05/08/21 08:50 <No data on this case meets the specified criteria> Operation Date: 09/08/21 07:00 Actual Procedures p Right Total Hip Arthroplasty, Uncemented(Right) - Kip Cordoba MD Hospital Course (1) S/P total right hip arthroplasty: This is a 76 year old patient admitted on 09/08/21 and underwent total hip arthroplasty. She tolerated the procedure well and there were no complications. Transferred to the PACU post op and later to the orthopedic floor for further care. She was given ancef for antibiotic prophylaxis. She was also given JAMES stockings, SCDs, and aspirin for DVT prophylaxis. Hemoglobin, hematocrit, and vital signs were monitored during her hospital stay and remained stable. Did not require any blood transfusions. There were no complications during her hospital stay. By post op day #1 the patient was tolerating a diabetic diet, pain was reasonably controlled with oral pain medicine, and she was participating in physical therapy. On post op day #1 the patient was discharged home and set up with home health care. She was given printed discharge instructions including prescriptions for extra strength tylenol, aspirin, and tramadol. Continue physical therapy, weight bearing as tolerated. Continue hip precautions. Continue JAMES stockings. Follow up approximately 2 weeks post op or sooner if there are problems or concerns. Coding Level of Care Code None Diagnoses S/P total right hip arthroplasty Z96.641
[2021-09-10] MEDS ORDERED: ROSUVASTATIN CALCIUM 5 MG TAB PO SCH (09:00)
[2021-09-10] MEDS ORDERED: INSULIN GLARGINE SOLOSTAR 100 UNITS/ML 3 ML PEN SC SCH (09:00)
== END 2021-09-09 15:26 | disposition home or self-care (01) ==
LOC: ASU 05:03 → 3E 05:03

== ENCOUNTER 2023-12-01 00:39 | Inpatient (IN) ==
[2023-12-01] MEDS: STAT IV Infusion **Titration per Protocol STA (01:17)
[2023-12-01 01:18] LABS: Basophils # (auto) 0.05 K/uL (0.00-0.20); Basophils % (auto) 1.2 %; Eosinophils % (auto) 7.5 %; Hematocrit (blood only) 40.5 % (37.0-47.0); Hemoglobin 14.2 g/dl (12.0-16.0); Immature Granulocytes # (auto) 0.01 K/uL (0.01-0.20); Immature Granulocytes % (auto) 0.2 %; Lymphocytes # (auto) 1.33 K/uL (1.20-3.40); Lymphocytes % (auto) 33.2 %; Mean Corpuscular Hemoglobin 29.9 pg (25.0-34.0); Mean Corpuscular Hgb Conc 35.1 g/dL (32.0-36.0); Mean Corpuscular Volume 85.3 fL (80.0-100.0); Mean Platelet Volume 11.2 fL (9.4-12.4); Monocytes # (auto) 0.49 K/uL (0.11-0.59); Monocytes % (auto) 12.2 %; Neutrophils # (auto) 1.83 K/uL (1.40-6.50); Neutrophils % (auto) 45.7 %; Platelet Count 179 K/uL (130-400); RDW Coefficient of Variation 13.6 % (11.5-14.5); RDW Standard Deviation 42.5 fL (36.4-46.3); Red Blood Count 4.75 M/uL (4.20-5.40); White Blood Count 4.01 K/ul (4.8-10.8)
[2023-12-01 01:37] LABS: Albumin Globulin Ratio 1.4 (0.9-2); BUN Creatinine Ratio 30.5 (10-20); Bilirubin,Total 0.3 mg/dl (0.2-1.0); Calcium 9.9 mg/dl (8.6-10.3); Creatinine Clr Calc Pharmacy 61.6 ml/min; Est GFR (African American) 45.7 ml/min; Est GFR (Non-African American) 39.5 ml/min; Globulin 3.5 gm/dl (2.5-4.0); Magnesium 2.4 mg/dl (1.7-2.4); Potassium 3.5 mmol/L (3.5-5.1); Total Protein 8.5 gm/dl (6.0-8.3)
[2023-12-01 01:42] LABS: Prothrombin Time 10.9 Seconds (9.0-12.0)
[2023-12-01] MEDS: dilTIAZem HCl 5 MG/ML 5 ML VIAL IV STA (01:44)
[2023-12-01] MEDS: dilTIAZem HCL 125 MG in DEXTROSE 5% 100 ML IV SCH (01:46)
[2023-12-01 01:53] LABS: Thyroid Stimulating Hormone 1.918 uIu/ml (0.300-4.500)
--- NOTE | 2023-12-01 01:59 | Emergency Department Note ---
Impression & Plan Rapid atrial fibrillation, Sinus pause ED Provider Note NAME: RUFINA MAYA AGE: 78 SEX: F : 1945 ARRIVES VIA: Ambulance INFORMANT: Patient, ED PROVIDER(S): Anne Woods MD CHIEF COMPLAINT: Tachycardia HPI: This is 78-year-old female presenting for tachycardia. Patient states that normally heart rates are between 30 and 40 and she is asked to go for pacemaker and december. She notes that she checked her heart rate on a pulse oximeter today and that it was elevated between 120 and 150. Show she felt a fluttering sensation in her chest and around 10 PM. Patient felt somewhat excited as well due to this. She has no chest pain or shortness of breath. No fever, chills, nausea or vomiting. No history of tacky dysrhythmias. ROS: See above HPI for pertinent positives & negatives. A total of 10 systems reviewed and were otherwise negative. PAST MEDICAL HISTORY: See Below PAST SURGICAL HISTORY: See Below FAMILY HISTORY: See Below SOCIAL HISTORY: See Below HOME MEDICATIONS: See Below ALLERGIES: See Below VITALS: See Below PHYSICAL EXAMINATION: General: resting comfortably in no acute distress Head: Normocephalic and atraumatic Eyes: Normal inspection, extraocular muscles intact Ear, nose, throat: Normal external exam Neck: Normal range of motion Respiratory: lungs clear to auscultation bilaterally Cardiovascular: Irregularly irregular rate/rhythm, no murmur GI: soft, nontender, no guarding or rebound Extremities: nontender, moves all extremities Neuro: The patient awake and alert, appropriately conversive, no focal deficits, symmetric faces Skin: Warm, dry, and intact MEDICAL DECISION MAKING: This is a send 8-year-old female sent for tachycardia. Patient is in A-fib with RVR. EKG as stated below. Will do diltiazem to help rate control. Did offer cardioversion as she has had symptoms for less than 48 hours, only for the last 4 hours. She declined this at this time. Her [id number] is elevated at about 5 -ECG independently interpreted by me with A-fib with RVR, rate of 141, right bundle branch block, left anterior fascicular block, normal QTc, no ST segment elevations consistent with STEMI criteria -Patient will be given diltiazem bolus as well as drip due to her significantly elevated heart rate -Patient has been monitored and slowly improving with rates coming down from 150s down to the 130s down to 100s. She still in A-fib rhythm. She require anticoagulation due to her [id number] score. Will admit for further workup. -Chest Xray independently interpreted by me showing no pneumothorax, focal opacity, or pleural effusions. -Blood was reviewed. No significant electro disturbances or troponin elevation. No transaminitis, no leukocytosis. -Patient diltiazem drip and became bradycardic with long sinus pauses. Temporarily stop the diltiazem drip and patient then began having tachycardia again. Hospitalist service made aware at this time. Differential diagnosis: A-fib with RVR, pneumonia, ACS ER treatment provided: See below Diagnostics interpreted by me: ECG: See above Cardiac Monitoring: An order was placed for continuous cardiac monitoring. The monitor shows a rate of 143 with atrial fibrillation Laboratory studies: As stated above and show below. Imaging studies: See below. Critical Care Note: I have personally spent 40 minutes of critical care time in the direct management of this patient. This includes bedside care, interpretation of diagnostic studies, and testing, discussion with consultants, patient, and family members, and other required patient management activities. This 40 minutes is in excess of all separately billable procedures. Past Med/Surg History Medical History Diabetes mellitus, type 2 Encounter for pre-operative examination Hyperlipidemia Hypertension Hypothyroidism Michelle's neuroma of left foot Peripheral neuropathy RBBB Surgical History History of appendectomy History of cholecystectomy History of colonoscopy History of tooth extraction Family History Grandfather (Maternal) Throat cancer Aunt Diabetes Breast cancer Father Myocardial infarction Other No family history of adverse response to anesthesia Denies family history of Ovarian cancer Prostate cancer Colorectal cancer Social History Smoking Status: Never smoker Second Hand Exposure: No; Do You Dip or Chew Tobacco: No; Hx Alcohol Use: No Hx Substance Use: No Preferred Language: Pashto Communication Ability: Effective Equine Dentist Required: No Beliefs That Will Affect Care: None marital status: Current Living Situation: Spouse Feels Safe at Home: Yes Assistive Devices: Walker Allergies Allergies Allergy/AdvReac Type Severity Reaction Status Date / Time exenatide [From Byetta] Allergy Intermediate NAUSEA, Verified 12/01/23 02:01 RASH liraglutide [From Victoza] Allergy Intermediate RASH Verified 12/01/23 02:01 Home Meds Home Medications Medication Instructions Recorded Confirmed amlodipine 2.5 mg tablet 2.5 mg PO QAM 09/18/19 12/01/23 empagliflozin 25 mg tablet 25 mg PO QAM 09/18/19 12/01/23 (Jardiance) levothyroxine 75 mcg tablet 75 mcg PO DAILYBB 09/18/19 12/01/23 (Levo-T) lisinopril 20 1 tab PO QAM 09/18/19 12/01/23 mg-hydrochlorothiazide 25 mg tablet rosuvastatin 5 mg tablet (Crestor) 5 mg PO QAM 09/18/19 12/01/23 coenzyme Q10 100 mg capsule (Co 200 mg PO QAM 04/02/21 12/01/23 Q-10) gemfibrozil 600 mg tablet (Lopid) 600 mg PO BIDM 04/02/21 12/01/23 pregabalin 300 mg capsule (Lyrica) 300 mg PO BID 04/02/21 12/01/23 glipizide 2.5 mg tablet, extended 2.5 mg PO QAM 04/16/21 12/01/23 release 24 hr biotin 1 mg tablet 1 mg PO QAM 09/03/21 12/01/23 aspirin 81 mg tablet,delayed 81 mg PO HS 09/08/21 12/01/23 release (Adult Aspirin Regimen) icosapent ethyl 1 gram capsule 2 g PO BIDM 11/24/22 12/01/23 (Vascepa) amoxicillin 500 mg tablet 2,000 mg PO DIRECTED PRN 1 HR 12/01/23 12/01/23 PRIOR TO DENTAL PROCEDURES linagliptin 5 mg tablet (Tradjenta) 5 mg PO QAM 12/01/23 12/01/23 imrcyxpt-onu-zmfpf ac 400 1 tab PO DAILY 12/01/23 12/01/23 mcg-calcium carb 500 mg-vit K1 20 mcg tablet (Women's 50 Plus Multivitamin) vitamin B complex-folic acid 0.4 1 tab PO DAILY 12/01/23 12/01/23 mg tablet (B Complex 1 (with folic acid)) Results & Data (ED) Vital Signs Vital Signs - 24 hr 12/01/23 00:41 12/01/23 00:41 12/01/23 00:42 Temperature 36.9 C Temperature Source Oral Pulse Rate 145 H 140 H Pulse Rate [Finger] 124 H Pulse Rate from SpO2 Sensor Pulse Rhythm Regular Pulse Strength Normal Respiratory Rate 20 20 Respiratory Effort / Characteristics Non-Labored Spontaneous Non-Labored Spontaneous Respiratory Depth Normal Normal Blood Pressure 115/84 Blood Pressure [Right Arm] 115/84 Blood Pressure Mean 94 Blood Pressure Mean [Right Arm] 94 Pulse Oximetry 95 94 Oxygen Delivery Method Room Air Room Air Sepsis Recent Fever Within 48 Hours No Sepsis New/Unexplained Change in Mental Status N/A Sepsis Action Taken by Nursing No Action Required 12/01/23 00:43 12/01/23 02:00 Temperature Temperature Source Pulse Rate 146 H 129 H Pulse Rate [Finger] Pulse Rate from SpO2 Sensor 151 H 116 H Pulse Rhythm Pulse Strength Respiratory Rate 13 18 Respiratory Effort / Characteristics Respiratory Depth Blood Pressure 115/84 129/70 Blood Pressure [Right Arm] Blood Pressure Mean 94 89 Blood Pressure Mean [Right Arm] Pulse Oximetry 92 93 Oxygen Delivery Method Sepsis Recent Fever Within 48 Hours Sepsis New/Unexplained Change in Mental Status Sepsis Action Taken by Nursing Laboratory Data 12/01/23 00:47 12/01/23 00:47 Lab Results 12/01/23 Range/Units 00:47 WBC 4.01 L (4.8-10.8) K/ul RBC 4.75 (4.20-5.40) M/uL Hgb 14.2 (12.0-16.0) g/dl Hct 40.5 (37.0-47.0) % MCV 85.3 (80.0-100.0) fL MCH 29.9 (25.0-34.0) pg MCHC 35.1 (32.0-36.0) g/dL RDW Std Deviation 42.5 (36.4-46.3) fL RDW Coeff of [place] 13.6 (11.5-14.5) % Plt Count 179 (130-400) K/uL MPV 11.2 (9.4-12.4) fL Immature Gran % (Auto) 0.2 % Neut % (Auto) 45.7 % Lymph % (Auto) 33.2 % [place] % (Auto) 12.2 % Eos % (Auto) 7.5 % Baso % (Auto) 1.2 % Neut # (Auto) 1.83 (1.40-6.50) K/uL Lymph # (Auto) 1.33 (1.20-3.40) K/uL [place] # (Auto) 0.49 (0.11-0.59) K/uL Eos # (Auto) 0.30 (0.00-0.50) K/uL Baso # (Auto) 0.05 (0.00-0.20) K/uL Immature Gran # (Auto) 0.01 (0.01-0.20) K/uL PT 10.9 (9.0-12.0) Seconds INR 1.0 (0.9-1.1) Sodium 139 (136-145) mmol/L Potassium 3.5 (3.5-5.1) mmol/L Chloride 106 (98-107) mmol/L Carbon Dioxide 19 L (21-32) mmol/L Anion Gap 14 H (3-11) BUN 40 H (6-23) mg/dl Creatinine 1.31 H (0.6-1.2) mg/dl Est Cr Clr Drug Dosing 61.6 ml/min Est GFR ( Amer) 45.7 ml/min Est GFR (Non-Af Amer) 39.5 ml/min BUN/Creatinine Ratio 30.5 H (10-20) Glucose 152 H (70-99(Fasting)) mg/dl Calcium 9.9 (8.6-10.3) mg/dl Magnesium 2.4 (1.7-2.4) mg/dl Total Bilirubin 0.3 (0.2-1.0) mg/dl AST 21 (13-39) U/L ALT 10 (7-52) U/L Alkaline Phosphatase 57 (34-104) U/L Troponin I High Sens 11.0 (0-14) pg/ml Total Protein 8.5 H (6.0-8.3) gm/dl Albumin 5.0 (3.4-5.0) gm/dl Globulin 3.5 (2.5-4.0) gm/dl Albumin/Globulin Ratio 1.4 (0.9-2) TSH 1.918 (0.300-4.500) uIu/ml Administered Medications Heparin Sodium/Dextrose (Heparin Sodium/Dextrose) 25,000 units in 500 mls @ 24 mls/hr IV .[id number] [facility]; Protocol Stop: 12/31/23 05:28 Last Admin: 12/01/23 06:11 Dose: 1,200 units/hr, 24 mls/hr Documented By: NAOMI Co-signed By: JULIETA Insulin Aspart (Insulin Aspart Per Unit Charge) 0 units SC Q6 [facility] Stop: 12/31/23 05:59 Last Admin: 12/01/23 06:37 Dose: 1 units Documented By: [facility] Co-signed By: JUANITA Discontinued Medications Diltiazem HCl (Diltiazem Hcl 5 Mg/Ml 5 Ml Vial) 10 mg IV NOW STA Stop: 12/01/23 01:18 Last Admin: 12/01/23 01:44 Dose: 10 mg Documented By: NAOMI Co-signed By: EWA Sodium Chloride (Nss) 1,000 mls @ 125 mls/hr IV .Q8H [facility] Stop: 12/31/23 00:59 Last Infusion: 12/01/23 07:04 Dose: Infused Documented By: Admin: 12/01/23 02:24 Dose: 125 mls/hr Documented By: NAOMI Diltiazem HCl 125 mg/ Dextrose 125 mls @ 5 mls/hr IV .Q24H [facility]; Protocol Stop: 12/31/23 01:29 Last Titration: 12/01/23 04:30 Dose: Infused Documented By: NAOMI Co-signed By: Admin: 12/01/23 01:46 Dose: 5 mg/hr, 5 mls/hr Documented By: NAOMI Co-signed By: EWA Miscellaneous (Stat Iv Infusion Titration Per Protocol) 1 each N/A NOW STA Stop: 12/01/23 01:18 Last Admin: 12/01/23 01:17 Dose: 1 each Documented By: NAOMI Discharge Plan Visit Data Chief Complaint: Cardiac Assessment Stated Complaint: RAPID AFIB, NO SX ED Provider: Anne Woods Discharge Problem: Rapid atrial fibrillation, Sinus pause Discharge Instructions Interventions: ED Discharge Assessment Last Done: 12/01/23 05:30
[2023-12-01] MEDS ORDERED: dilTIAZem HCl 5 MG/ML 5 ML VIAL IV STA (02:03)
[2023-12-01] MEDS: SODIUM CHLORIDE 0.9% 1,000 ML IV SCH (02:24)
--- OUTSIDE RECORDS SUMMARY | 2023-12-01 04:06 | External Medical Summary | Summary of Care ---
Author Name Unknown Organization [facility] Address [address] [place] [address] Phone [phone] Care Team Providers Care Delivery Consultant Name Role Phone JassClaire rojas Murphy LIU Primary Care Provider Reason for Visit * Reason Onset Date Comments Advice 11/22/2023 Pt calling to sp eak to regarding getting pacemaker connected to Encounter Details Date Type Department Care Team (Late st Contact Info) Description 11/22/2023 Telephone Cardiology, [place] [address] [facility] [place] [address] Tara iVllarreal [address] [place] [address] Advice (Pt calling to speak to dr méndez... Allergies Active Allergy Reactions Criticality Noted Date Comments Exenatide Hives Medium 05/04/2016 Liraglutide Hives Medium 09/27/2014 documented as of this encounter (statuses as of 11/23/2023) Medications Medication Sig Dispensed Refills Start Date End Date Status ASPIRIN 81 MG PO TABS Take 1 Tablet by mouth every evening. 0 Active Multiple Vitamins-Minerals (MULTI FOR HER 50+) CAPS Take 1 Capsule by mouth in the morning. 0 Active B Complex-Folic Acid (B COMPLEX FORMULA 1) TABS Take 1 Tablet by mouth every evening. 0 Active Coenzyme Q-10 200 MG Oral CapsuleIndications:HT N, goal below 140/90,DM type 2 with diabetic peripheral neuropathy (HCC),Dyslipidemia, goal LDL below 100 Take 1 Capsule by mouth in the morning. 0 06/27/2018 Active Biotin 51361 MCG Oral Tablet Take 1 Tablet by mouth in the morning. 0 Active OneTouch Ultra Control In Vitro Solution Use as directed. 1 Each 0 10/28/2022 Active OneTouch UltraSoft Lancets Use up to four times a day as directed ( delica) 250.00 100 Each 10 01/13/2023 Active Icosapent Ethyl 1 GM Oral Capsule (Vascepa) TAKE 2 CAPSULES BY MOUTH WITH BREAKFAST AND 2 WITH EVENING MEAL DO NOT CUT, CRUSH, OR CHEW 120 Capsule 11 01/19/2023 Active Rosuvastatin Calcium 5 MG Oral Tablet (Crestor)Indications: Dyslipidemia, goal LDL below 70 Take 1 Tablet by mouth in the morning. 90 Tablet 3 03/24/2023 Active amLODIPine Besylate 2.5 MG Oral Tablet (Norvasc)Indications: HTN, goal below 140/90 Take 1 Tablet by mouth in the morning. 90 Tablet 2 04/12/2023 Active Pregabalin 300 MG Oral Capsule (Lyrica)Indications:D M type 2 with diabetic peripheral neuropathy (HCC) Take 1 Capsule by mouth in the morning and 1 Capsule before bedtime. 60 Capsule 5 06/23/2023 Active Tradjenta 5 MG Oral Tablet (linaGLIPtin)Indicati ons:Diabetes mellitus with stage 3 chronic kidney disease (HCC) TAKE 1 TABLET BY MOUTH IN THE MORNING 90 Tablet 2 08/02/2023 Active Gemfibrozil 600 MG Oral Tablet (Lopid) TAKE 1 TABLET BY MOUTH TWICE DAILY 30 MINUTES BEFORE THE MORNING AND EVENING MEALS 180 Tablet 1 08/27/2023 Active Levothyroxine Sodium 75 MCG Oral TabletIndications:Acq uired hypothyroidism TAKE 1 TABLET BY MOUTH IN THE MORNING AT LEAST 30 MIN PRIOR TO BREAKFAST OR OTHER MEDS 90 Tablet 0 09/22/2023 Active Empagliflozin 25 MG Oral Tablet (Jardiance) Take 1 Tablet by mouth in the morning. 90 Tablet 1 09/24/2023 Active OneTouch Ultra In Vitro Strip (Glucose Blood) USE STRIP TO CHECK GLUCOSE 4 TIMES DAILY 400 Strip 1 10/13/2023 Active glipiZIDE ER 2.5 MG Oral Tablet Extended Release 24 Hour (Glucotrol XL)Indications:DM type 2 with diabetic peripheral neuropathy (HCC) TAKE 1 TABLET BY MOUTH IN THE MORNING 90 Tablet 2 10/15/2023 Active Lisinopril-hydroCHLOR Othiazide 20-25 MG Oral TabletIndications:HTN , goal below 140/90 Take 1 Tablet by mouth in the morning. 100 Tablet 1 10/15/2023 Active documented as of this encounter (statuses as of 11/23/2023) Active Problems Problem Noted Date Diagnosed Date Bradycardia, sinus 10/29/2023 RBBB (right bundle branch block) 10/29/2023 Diabetes mellitus with stage 3 chronic kidney di sease 06/19/2019 DM type 2 with diabetic peripheral neuropathy HTN, goal below 140/90 10/21/2015 Overview: Per HTN Protocol #27. Chronic sinusitis 09/01/2011 Dyslipidemia, goal LDL below 70 07/25/2009 Overview: Per Lipid Taxonomy. Hypothyroidism due to acquired atrophy of thyroi d 05/22/2009 ADVANCE DIRECTIVE INFORMATION 02/10/2006 Overview: Pt received info previously Metabolic syndrome 05/22/2003 documented as of this encounter (statuses as of 11/23/2023) Resolved Problems Problem Noted Date Diagnosed Date Resolved Date DM type 2 causing CKD stage 3 06/14/2018 06/14/2018 Kidney disease, chronic, sta ge III (GFR 30-59 ml/min) 11/23/2017 06/14/2018 Overview: Per CKD protocol #1 Actinic keratosis 06/29/2013 05/04/2017 Other seborrheic keratosis 06/29/2013 0 05/04/2017 Ruby angioma 06/29/2013 05/04/2017 HTN, GOAL BELOW 140/80 04/04/201211/20 Overview: Per HTN Protocol #27. DM type 2, not at goal 09/01/201107/26 Cough 09/01/2011 05/04/2017 Chronic rhinitis 09/01/2011 05/04/2017 HTN, GOAL BELOW 130/80 09/11/200904/07 Overview: Per HTN Taxonomy. Type 2 diabetes mellitus wit h hemoglobin A1c goal of less than 7.0% 06/13/2009 05/10/2017 Overview: Per Diabetes Taxonomy. ICD-10 update of inactive term Dyslipidemia, goal to be determined 11/15/2000 07/25/2009 Overview: Per Lipid Taxonomy. HTN, goal below 140/90 09/11 Overview: Per HTN Taxonomy. Type 2 diabetes mellitus wit h hemoglobin A1c goal of less than 7.0% 06/13/2009 Overview: Per Diabetes Taxonomy. ICD-10 update of inactive term documented as of this encounter (statuses as of 11/23/2023) Immunizations Name Administration Dates Next Due COVID-19 mRNA, LNP-s, No Pre serve, 2-Dose Series (Moderna) 01/05/2022,10/16/2020,09/18/2020 COVID-19, MRNA-LNP, 23-24, P F, 50 MCG/0.5 mL, 12 YRS AND ABOVE, IM (MODERNA-Spikevax) 06/29/2023 COVID-19, mRNA, LNP-s, PF, B ooster, 100mcg/0.5mg (Moderna) 06/14/2021 Covid-19, Mrna, Lnp-s, Pf, B ivalent, 30 Mcg, IM, 12 yrs and above (Pfizer) 05/18/2022 Pneumococcal Conjugate Vacc, 13 Valent (Prevnar) 08/20/2014 Pneumococcal Polysaccharide PPV23 (Pneumovax) 11/02/2016,02/10/2006 RSV Vac., Recomb, Adjuvant, PF,0.5 Ml (Arexvy) 07/15/2023 Season Influenza, Quad, PF, Adjuvanted, 65+ Yrs, IM (FLUAD) 05/22/2020 Seasonal Influenza, PF, 6 M & above, IM , (FluLaval or Fluzone) 06/14/2018,05/10/2017 Seasonal Influenza, Quadriva lent Hd (Fluzone Hd) 06/04/2023,05/28/2021 Seasonal Influenza, Quadriva lent, No Preserve, IM 05/04/2016,06/11/2015 Seasonal Influenza, Split, I IV3, With Preserve, Inj 06/07/2014,06/20/2013,06/30/2012,05/16,05/16/2010,07/09/2009,05/16/20 07,05/16/2006 06/07/2015 Seasonal Influenza, Trivalen t, Adjuvanted, 65+ yrs 06/19/2019 TDAP (age 11 and older)(Adacel) 07/28/2010 Varicella Zoster Vaccine (Adult) 02/08/2012 Zoster Vaccine Recombinant (Shingrix) 08/27/2019 ,05/13/2019 documented as of this encounter Social History Tobacco Use Types Packs/Day Years Used Date Smoking Tobacco: Never Passive Smoke Exposure: Never Smokeless Tobacco: Never Alcohol Use Standard Drinks/Week Comments No 0 (1 standard drink = 0.6 oz pur e alcohol) PHQ-2 Answer Date Recorded PHQ Adult Total Score 0 03/08/2023 Hunger Vital Sign Answer Date Recorded Within the past 12 months, y ou worried that your food would run out before you got the money to buy more. Never true 03/08/20 23 Within the past 12 months, t he food you bought just didn't last and you didn't have money to get more. Never true 03/08/2023 Sex and Gender Information Value Date Recorded Sex Assigned at Female 01/08/2023 9:32 AM EDT Gender Identity Female 03/05/2022 2:29 PM EDT Sexual Orientation Straight 12/20/2019 1: 48 PM EDT Job Start Date Occupation Industry Not on file Not on file Not on file documented as of this encounter Miscellaneous Notes * Telephone Encounter - Tesha Atkinson LPN - 11/23/2023 10:03 AM EDT See 11/15/23 tele enc - use that one * Telephone Encounter - Karla Sarah OSA - 11/22/2023 11:18 AM EDT Pt calling to speak to regarding getting pacemaker connected to Milo documented in this encounter Plan of Treatment Upcoming Encounters Date Type Department Care Team (Late st Contact Info) Description 03/09/2024 2:00 PM EDT Nurse Only Ancillary Department, [place] [address] [facility] [place] [address] [place], Nurse Annual Wellness [address] [place] [facility] [place] [address] 05/19/2024 9:50 AM EDT Office Visit Family Practice, [place] [address] [facility], [place] [phone] Claire Gabriel DO [address] [place] [facility] [place] [address] Scheduled Procedures Name Priority Associated Diagnoses Date/Ti me COLONOSCOPY FLEXIBLE PROXIMA L DIAGNOSTIC Recall Benign neoplasm of colon Health Maintenance Due Date Last Done Comments DTaP,Tdap,and Td Vaccines (2 - Td or Tdap) 07/28/2020 07/28/2010, 06/06/1999 Diabetic Foot Exam 09/17/2023 09/17/2022, 0 09/03/2021, 11/20/2020, Additional history exists DXA Scan 11/10/2023 11/09/2016 Depression Screening 03/08/2024 03/08/2023 GFR 05/13/2024 11/11/2023, 12/0 01/2023, 04/07/2023, Additional history exists HbA1c 05/13/2024 11/11/2023, 12/0 01/2023, 04/07/2023, Additional history exists Diabetic Eye Exam 10/01/2024 10/01/2023 (Do ne elsewhere), 10/01/2023, 10/01/2022, Additional history exists Albumin/Creatinine Ratio 11/07/2024 024, 09/17/2022, 10/13/2021, Additional history exists CKD HGB USE SMARTSET 14902 11/07/202411/07, 09/17/2022, 09/04/2021, Additional history exists CKD PHOS USE SMARTSET 58263 11/07/202410/15, 09/17/2022, 12/13/2020, Additional history exists TSH 11/10/2024 11/11/2023, 12/14, 09/17/2022, Additional history exists Colonoscopy Discontinued 08/29/2013, 08/29/2013 Colorectal Cancer Screening Discontinued Pneumococcal Vaccine: 65+ Years Completed 11/02/2016, 08/20/2014, 02/10/2006 Zoster Vaccines Completed 08/27/2019, 04/17, 02/08/2012 Influenza Vaccine (FLU shot) Completed 06/04/2023, 05/28/2021, 05/22/2020, Additional history exists COVID-19 Vaccine Completed 06/29/2023, 10/2021, 01/05/2022, Additional history exists Cologuard Discontinued Fecal Occult Blood Test Discontinued GARDASIL-HPV IMMUNIZATION SERIES Aged Out No longer eligible based on patient's age to complete this topic Hepatitis B Aged Out No longer eligi ble based on patient's age to complete this topic MENINGOCOCCAL (MENACTRA/MENVEO) Aged Out No longer eligible based on patient's age to complete this topic Sigmoidoscopy Discontinued documented as of this encounter Medical Devices Not on filedocumented as of this encounter Advance Directives Documents on File Type Date Recorded Patient Sugar Boiler Expl anation Advance Directives and Living Will 11/12/2023 signed on 01/26/2023 ADVANCE DIRECTIVE / LIVING WILL LIVING WILL Power of Director Hedis 11/12/2023 signed on 01/26/2023 POWER OF DIGITAL PRINTER Care Teams Delivery Consultant Relationship Specialty Start Date End Date Claire Gabriel DO [address] [facility] [address] PCP - General Family Medicine 11/06/19 documented as of this encounter
--- OUTSIDE RECORDS SUMMARY | 2023-12-01 04:06 | External Medical Summary | Summary of Care ---
Author Name Unknown Organization [facility] Address [address] [place] [address] Phone [phone] Care Team Providers Care Exceptional Student Education Aide Name Role Phone Claire Gabriel DO Primary Care Provider [phone] Reason for Visit * Reason Onset Date Comments Appointment 11/15/2023 Pacermaker impla nt Encounter Details Date Type Department Care Team (Late st Contact Info) Description 11/15/2023 Telephone Cardiology, [place] [address] [place] [address] Tara Villarreal DO [address] [place] [address] Appointment (Pacermaker implant) Allergies Active Allergy Reactions Criticality Noted Date [...] in the morning. 0 06/27/2018 Active Biotin 92117 MCG Oral Tablet Take 1 Tablet by mouth in the morning. 0 Active angelcamTouch Ultra Control In Vitro Solution Use as [...] Influenza, Trivalen t, Adjuvanted, 65+ yrs 06/19/2019 TD - Tetanus/Diptheria (ADULT) 06/06/1999 TDAP (age 11 and older)(Adacel) 07/28/2010 Varicella [...] as of this encounter Miscellaneous Notes * Addendum Note - Thomas Collier LPN - 11/23/2023 11:03 AM EDTAddended by: THOMAS COLLIER on: 11/23/2023 11:03 AM Modules accepted: Orders * Telephone Encounter - Thomas Collier LPN - 11/23/2023 10:28 AM EDT 12/15/23 [facility] 9:30 doctor time Spoke with pt by phone, gave instructions, sent via [employer], pt will stop by for chlorhexidine washand hard copy instructions. * Telephone Encounter - Thomas Collier LPN - 11/17/2023 10:16 AM EDT Spoke with Pt, will discuss with provider and set up procedure. * Telephone Encounter - Camelia Barboza OSA - 11/17/2023 9:44 AM EDT Person calling: Rosalind Relationship to patient: self Number to return call: [phone] Reason for call: Calling to schedule pacemaker appt Pharmacy: Provider Name: Dr. Villarreal * Telephone Encounter - Selam Herring OSA - 11/16/2023 9:05 AM EDT Person calling: pt Relationship to patient: pt Number to return call: [phone] Reason for call: pt calling to get scheduled for a pacemaker at [facility] please call this afternoon she is going to the dentist for 11 am Pharmacy: na Provider Name:Dr Villarreal Thank you JESSIE Quintana documented in this encounter Plan of Treatment Upcoming Encounters Date Type Department Care Team (Late st Contact Info) Description 12/21/2023 11:00 AM EDT Cardiac Studies Cardiology, [facility] [address] [facility] [place] [address] [facility] [address] [facility] [place] [address] 03/09/2024 2:00 PM EDT Nurse Only Ancillary Department, [address] [place] [address] [place], Nurse [facility] [address] [facility] [address] 05/19/2024 9:50 AM EDT Office Visit [facility], [place] [address] [facility] [phone] Claire Gabriel [facility] [address] [facility] [address] Scheduled Orders Name Type Priority Associated Diagnoses Orde r Schedule INSERT/REPLACE PACEMAKER,ATRIAL/VENTR ICULAR Procedures Routine Bradycardia, sinus RBBB (right bundle branch block) Ordered: 11/23/2023 CBC Lab Routine Pre-op testing Expected: 11/23/2023, Expires: 11/22/2024 BASIC METABOLIC PANEL Lab Routine Pre-op testing Expected: 11/23/2023, Expires: 11/22/2024 Scheduled Procedures Name Priority Associated Diagnoses Date/Ti me COLONOSCOPY FLEXIBLE PROXIMA L DIAGNOSTIC Recall Benign neoplasm of colon Health Maintenance Due Date Last Done Comments DTaP,Tdap,and Td Vaccines (2 - Td or Tdap) 07/28/2020 07/28/2010, 06/06/1999 Diabetic Foot Exam 09/17/2023 09/17/2022, 0 09/03/2021, 11/20/2020, Additional history exists DXA Scan 11/10/2023 11/09/2016 Depression Screening 03/08/2024 03/08/2023 GFR 05/13/2024 11/11/2023, 120 01/2023, 04/07/2023, Additional history exists HbA1c 05/13/2024 11/11/2023, 120 01/2023, 04/07/2023, Additional history exists Diabetic Eye Exam 10/01/2024 10/01/2023 (Do ne elsewhere), 10/01/2023, 10/01/2022, Additional history exists Albumin/Creatinine Ratio 11/07/202411/07/ 024, 09/17/2022, 10/13/2021, Additional history exists CKD HGB USE SMARTSET 13766 11/07/202411/07, 09/17/2022, 09/04/2021, Additional history exists CKD PHOS USE SMARTSET 45330 11/07/202410/15, 09/17/2022, 12/13/2020, Additional history exists TSH [...] Not on filedocumented as of this encounter Visit Diagnoses Diagnosis Bradycardia, sinus- Primary Other specified cardiac dysrhythmias RBBB (right bundle branch block) Right bundle branch block Pre-op testing Preoperative examination, unspecified documented in this encounter Advance Directives Documents on File Type Date Recorded Patient Fitness And Wellness Instructor Expl anation Advance Directives and Living Will 11/12/2023 signed on 01/26/2023 ADVANCE DIRECTIVE / LIVING WILL LIVING WILL Power of Die Repair 11/12/2023 signed on 01/26/2023 POWER OF ADMINISTRATIVE TECHNICIAN Care Teams Exceptional Student Education Aide Relationship Specialty Start Date End Date Claire Gabriel DO [address] [place] [address] PCP - General Family Medicine 11/06/19 documented as of this encounter
--- OUTSIDE RECORDS SUMMARY | 2023-12-01 04:06 | External Medical Summary | Summary of Care ---
Author Name Unknown Organization [facility] Address [address] [place] [address] Phone [phone] Care Team Providers Care Speech And Language Assistant Name Role Phone JassClaire rojas Murphy LIU Primary Care Provider Reason for Visit * Reason Onset Date Comments Advice 11/22/2023 Pt calling to sp eak to regarding getting pacemaker connected to Encounter Details Date Type Department Care Team (Late st Contact Info) Description 11/22/2023 Telephone Cardiology, [place] [address] [facility] [address] Tara Villarreal [address] [place] [address] Advice (Pt calling to speak to dr méndez... Allergies Active Allergy Reactions Criticality Noted Date Comments Exenatide Hives Medium 05/04/2016 Liraglutide Hives Medium 09/27/2014 documented as of this encounter (statuses as of 11/30/2023) Medications Medication Sig Dispensed Refills Start Date [...] in the morning. 0 06/27/2018 Active Biotin 29630 MCG Oral Tablet Take 1 Tablet by [...] as of this encounter (statuses as of 11/30/2023) Active Problems Problem Noted Date Diagnosed Date [...] as of this encounter (statuses as of 11/30/2023) Resolved Problems Problem Noted Date Diagnosed Date [...] as of this encounter (statuses as of 11/30/2023) Immunizations Name Administration Dates Next Due COVID-19 [...] 12/21/2023 11:00 AM EDT Cardiac Studies Cardiology, [facility] [address] [place] [address] [facility] [address] [place] [address] 03/09/2024 2:00 PM EDT Nurse Only Ancillary Department, [place] [address] [facility] [address] [place], Nurse [facility] [address] [facility] [address] 05/19/2024 9:50 AM EDT Office Visit Family Practice, [place] [address] [facility] [phone] Claire Gabriel, [address] [facility] [address] Scheduled Procedures Name Priority Associated Diagnoses Date/Ti [...] Additional history exists CKD HGB USE SMARTSET 65925 11/07/202411/07, 09/17/2022, 09/04/2021, Additional history exists CKD PHOS USE SMARTSET 84142 11/07/202410/15, 09/17/2022, 12/13/2020, Additional history exists TSH [...] Documents on File Type Date Recorded Patient Cashier Or Checker Stock Clerk Expl anation Advance Directives and Living Will 11/12/2023 signed on 01/26/2023 ADVANCE DIRECTIVE / LIVING WILL LIVING WILL Power of Machine Programmer 11/12/2023 signed on 01/26/2023 POWER OF LAUNDERETTE ATTENDANT Care Teams Speech And Language Assistant Relationship Specialty Start Date End Date Claire Gabriel DO [address] [place] [address] PCP - General Family Medicine 11/06/19 documented as of this encounter
--- OUTSIDE RECORDS SUMMARY | 2023-12-01 04:06 | External Medical Summary | Summary of Care ---
Author Name Unknown Organization [facility] Address [address] [place] [address] Phone [phone] Care Team Providers Care Chain Puller Name Role Phone Claire Gabriel DO Primary Care Provider Reason for Visit * Reason Onset Date Comments Appointment 11/15/2023 Pacermaker impla nt Encounter Details Date Type Department Care Team (Late st Contact Info) Description 11/15/2023 Telephone Cardiology, [place] [address] [facility] [place] [address] [facility]arreal DO [address] [facility] [address] Appointment (Pacermaker implant) Allergies Active Allergy [...] in the morning. 0 06/27/2018 Active Biotin 88302 MCG Oral Tablet Take 1 Tablet by mouth in the morning. 0 Active Pendo SystemsTouch Ultra Control In Vitro Solution Use as [...] encounter Miscellaneous Notes * Telephone Encounter - Angela Bauer OSA - 11/30/2023 3:25 PM EDT Person calling: Pt Number to return call: [phone] Reason for call: Pt calling in regards to pacemaker procedure scheduled for 12.15.23. Wanting to verify what medications she is to take the day of the procedure Provider Name: Dr. Villarreal Please advise. Thank you. * Addendum Note - ChinaThomas LPN - 11/23/2023 11:03 AM EDTAddended by: THOMAS COLLIER on: 11/23/2023 11:03 AM Modules accepted: Orders * Telephone Encounter - Thomas Collier LPN - 11/23/2023 10:28 AM EDT 12/15/23 [facility] 9:30 doctor time Spoke with pt by phone, gave instructions, sent via [employer], pt will stop by for chlorhexidine washand hard copy instructions. * Telephone Encounter - Thomas Collier LPN - 11/17/2023 10:16 AM EDT Spoke with Pt, will discuss with provider and set up procedure. * Telephone Encounter - Camelia Barboza OSA - 11/17/2023 9:44 AM EDT Person calling: Rosalind Relationship to patient: self Number to return call: [phone] Reason for call: Calling to schedule pacemaker appt Pharmacy: Provider Name: Dr. Villarreal * Telephone Encounter - Selam Herring OSA - 11/16/2023 9:05 AM EDT Person calling: pt Relationship to patient: pt Number to return call: [phone] Reason for call: pt calling to get scheduled for a pacemaker at [facility] please call this afternoon she is going to the dentist for 11 am Pharmacy: na Provider Name:Dr Villarreal Thank you JESSIE Quintana documented in this encounter Plan of Treatment Upcoming Encounters Date Type Department Care Team (Late st Contact Info) Description 12/21/2023 11:00 AM EDT Cardiac Studies Cardiology, [facility] [address] [facility] [place] [address] [place], [facility] [address] [place] [address] 03/09/2024 2:00 PM EDT Nurse Only Ancillary Department, [place] [address] [facility] [address] [place], Nurse [facility] [address] [facility] [address] 05/19/2024 9:50 AM EDT Office Visit Family Practice, [place] [address] [facility] [phone] Claire Gabriel, [facility] [address] [facility] [address] Scheduled Orders Name Type Priority Associated Diagnoses [...] 04/07/2023, Additional history exists HbA1c 05/13/2024 11/11/2023, 1201/2023, 04/07/2023, Additional history exists Diabetic Eye Exam 10/01/2024 10/01/2023 (Do ne elsewhere), 10/01/2023, 10/01/2022, Additional history exists Albumin/Creatinine Ratio 11/07/2024 024, 09/17/2022, 10/13/2021, Additional history exists CKD HGB USE SMARTSET 03819 11/07/202411/07, 09/17/2022, 09/04/2021, Additional history exists CKD PHOS USE SMARTSET 08833 11/07/2024 032 12/2023, 09/17/2022, 12/13/2020, Additional history exists TSH 11/10/2024 [...] Documents on File Type Date Recorded Patient Metal Annealer Expl anation Advance Directives and Living Will 11/12/2023 signed on 01/26/2023 ADVANCE DIRECTIVE / LIVING WILL LIVING WILL Power of Rolls Baker 11/12/2023 signed on 01/26/2023 POWER OF ELDER ASSISTANT Care Teams Chain Puller Relationship Specialty Start Date End Date Claire Gabriel DO [address] [place] [address] PCP - General Family Medicine 11/06/19 documented as of this encounter
--- OUTSIDE RECORDS SUMMARY | 2023-12-01 04:07 | External Medical Summary | Summary of Care ---
Author Name Unknown Organization [facility] Address [address] [place] [address] Phone [phone] Care Team Providers Care Residential Solar Sales Consultant Name Role Phone Claire Gabriel DO Primary Care Provider Reason for Visit * Reason Comments Consultation Rm 11 * Evaluate & Treat - Unlimited Visits (Within 10 days (routine)) - Authorized Specialty Diagnoses / Procedures Referred By Contact Referred To Contact Cardiac Electrophysiology / Cardiology Diagnoses Bradycardia Claire Gabriel DO [address] [place] [address] Tara Villarreal DO [address] [place] [address] Referral ID Status Reason Start Date Expiration Date Visits Requested Visits Authorized [id number] Authorized Specialty Services Required 07/21/[phone] Encounter Details Date Type Department Care Team (Late st Contact Info) Description 11/05/2023 12:45 PM EDT Office Visit Cardiology, [facility] [address] [facility] [place] [address] Tara Villarreal DO [address] [place] [address] Bradycardia, sinus*; RBBB (right bundle branch block); HTN, goal below 140/90; Dyslipidemia, goal LDL below 70 Allergies Active Allergy Reactions Criticality Noted Date Comments Exenatide Hives Medium 05/04/2016 Liraglutide Hives Medium 09/27/2014 documented as of this encounter (statuses as of 11/15/2023) Medications Medication Sig Dispensed Refills Start Date [...] 1 Capsule by mouth in the morning. Patient states she is taking 200 mg daily. 0 06/27/2018 Active Biotin 65147 MCG Oral Tablet Take 1 Tablet by [...] as of this encounter (statuses as of 11/15/2023) Active Problems Problem Noted Date Diagnosed Date [...] as of this encounter (statuses as of 11/15/2023) Resolved Problems Problem Noted Date Diagnosed Date [...] as of this encounter (statuses as of 11/15/2023) Immunizations Name Administration Dates Next Due COVID-19 [...] on file documented as of this encounter Last Filed Vital Signs Vital Sign Reading Time Taken Comments Blood Pressure 122/58 11/05/2023 1:01 PM EDT Pulse 44 11/05/2023 1:01 PM EDT Temperature - - Respiratory Rate 16 11/05/2023 1:01 PM EDT Oxygen Saturation - - Inhaled Oxygen Concentration - - Weight 84.4 kg (186 lb) 11/05/2023 1:01 PM EDT Height 162.6 cm (5' 4") 11/05/2023 1:01 PM EDT Body Mass Index 31.93 11/05/2023 1:01 PM EDT documented in this encounter Patient Instructions * Patient Instructions* Tara Villarreal DO - 11/05/2023 1:46 PM EDT Give us a call or send a MyG when you are ready to schedule the pacemaker at [facility] typically on a Wednesday all day and some Wednesday mornings documented in this encounter Progress Notes * Tara Villarreal DO - 11/05/2023 1:20 PM EDT Subjective Rosalind Morrison is a 78 year old female. Chief Complaint Patient presents with Consultation Rm 11 Pt referred to EP due to SSS Referring Provider: Dr. Claire Gabriel Primary cardiology provider: Deirdre Mares Cardiac Problems: SSS Marked SB 1st degree AV block RBBB HTN HLD DM Hypothyroidism HPI: Pt's just [place] [facility] and then had hydrocodone for some time and was very confused and needed rehab-but did have some adrenal insufficiency from the medications and went back to hospital from rehab; but he is still in rehab and doing well; the pt has been busy with all this. Pt denies any chest pain, SOB/HAMILTON, palpitations, lightheadedness, dizziness, near syncopal episodes, lower extremity edema,orthopnea, no change in activity level or unexplained weight changes. 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 B Complex-Folic Acid (B COMPLEX FORMULA 1) TABS Take by mouth. coenzyme Q-10 100 MG Capsule Take 1 Capsule by mouth in the morning. Patient states she is taking 200 mg daily. Biotin 10 MG Oral Tablet Take by mouth 2 Tablets . Icosapent Ethyl 1 GM Oral Capsule (Vascepa) TAKE 2 CAPSULES BY MOUTH WITH BREAKFAST AND 2 WITH EVENING MEAL DO NOT CUT, CRUSH, OR CHEW 120 Capsule 11 Rosuvastatin Calcium 5 MG Oral Tablet (Crestor) Take 1 Tablet by mouth in the morning. 90 Tablet 3 amLODIPine Besylate 2.5 MG Oral Tablet (Norvasc) Take 1 Tablet by mouth in the morning. 90 Tablet 2 Pregabalin 300 MG Oral Capsule (Lyrica) Take 1 Capsule by mouth in the morning and 1 Capsule beforebedtime. 60 Capsule 5 Tradjenta 5 MG Oral Tablet (linaGLIPtin) TAKE 1 TABLET BY MOUTH IN THE MORNING 90 Tablet 2 Gemfibrozil 600 MG Oral Tablet (Lopid) TAKE 1 TABLET BY MOUTH TWICE DAILY 30 MINUTES BEFORE THE MORNING AND EVENING MEALS 180 Tablet 1 Levothyroxine Sodium 75 MCG Oral Tablet TAKE 1 TABLET BY MOUTH IN THE MORNING AT LEAST 30 MIN PRIORTO BREAKFAST OR OTHER MEDS 90 Tablet 0 Empagliflozin 25 MG Oral Tablet (Jardiance) Take 1 Tablet by mouth in the morning. 90 Tablet 1 glipiZIDE ER 2.5 MG Oral Tablet Extended Release 24 Hour (Glucotrol XL) TAKE 1 TABLET BY MOUTH IN THE MORNING 90 Tablet 2 Lisinopril-hydroCHLOROthiazide 20-25 MG Oral Tablet Take 1 Tablet by mouth in the morning. 100 Tablet 1 Huoshi Ultra Control In Vitro Solution Use as directed. 1 Each 0 [facility] [employer] UltraSoft Lancets Use up to four times a day as directed ( delica) 250.00 100 Each 10 OneTouch Ultra In Vitro Strip (Glucose Blood) USE STRIP TO CHECK GLUCOSE 4 TIMES DAILY 400 Strip 1 No current facility-administered medications for this visit. Past Medical History: Diagnosis Date DM type 2, goal A1c below 7 HTN, goal below 140/90 Hyperlipidemia LDL goal < 100 Hyperlipidemia, mixed Michelle's neuroma Past Surgical History: Procedure Laterality Date COLONOSCOPY, DIAGNOSTIC (RECTUM) 08/29/2013 COLONOSCOPY FLEXIBLE PROXIMAL DIAGNOSTIC performed by Fili Pike MD at ENDOSCOPY [facility] Review of patient's allergies indicates: Allergen Reactions Byetta [Exenatide] Hives Victoza [Liraglutide] Hives Family History Problem Relation Age of Onset Hypertension Mother Cancer Mother pancreatic, indolent type Heart Disorder Father 55 massive [place] Hypertension Sister Heart Disorder Brother 53 CABG x 3 Hypertension Sister Diabetes Sister Hypertension Sister Heart Disorder Sister mI in 30's Family Status Relation Status Mo (Not Specified) Fa (Not Specified) Sis (Not Specified) Bro (Not Specified) Sis (Not Specified) Sis (Not Specified) Sis (Not Specified) Social History Socioeconomic History Marital status: Spouse name: Not on file Number of children: Not on file Years of education: Not on file Highest education level: Not on file Occupational History Not on file Tobacco Use Smoking status: Never Passive exposure: Never Smokeless tobacco: Never Vaping Use Vaping Use: Never used Substance and Sexual Activity Alcohol use: No Drug use: No Sexual activity: Yes Partners: Male Other Topics Concern Not on file Social History Narrative Not on file Social Determinants of Health Financial Resource Strain: Not on file Food Insecurity: No Food Insecurity (03/08/2023) Hunger Vital Sign Worried About Running Out of Food in the Last Year: Never true Ran Out of Food in the Last Year: Never true Transportation Needs: Not on file Physical Activity: Not on file Stress: Not on file Social Connections: Not on file Intimate Partner Violence: Not on file Housing Stability: Not on file Review of Systems Constitutional: Negative for activity change, chills, fatigue, fever and unexpected weight change. HENT: Negative for postnasal drip, rhinorrhea and sinus pressure. Eyes: Negative for visual disturbance. Respiratory: Negative for shortness of breath. Cardiovascular: Negative for chest pain, palpitations and leg swelling. Gastrointestinal: Negative for blood in stool, constipation, diarrhea, nausea and vomiting. Genitourinary: Negative for dysuria and hematuria. Musculoskeletal: Negative for gait problem. Skin: Negative for rash. Neurological: Negative for dizziness, syncope and light-headedness. Objective BP 122/58 | Pulse 44 | Resp 16 | Ht 1.626 m (5' 4") | Wt 84.4 kg (186 lb) | BMI 31.93 kg/m | BSA 1.95 m Physical Exam Vitals and nursing note reviewed. Constitutional: General: She is awake. Appearance: Normal appearance. She is well-developed. HENT: Head: Normocephalic and atraumatic. Eyes: General: No scleral icterus. Extraocular Movements: Extraocular movements intact. Neck: Vascular: Normal carotid pulses. No carotid bruit or JVD. Cardiovascular: Rate and Rhythm: Regular rhythm. Bradycardia present. Pulses: Carotid pulses are 2+ on the right side and 2+ on the left side. Radial pulses are 2+ on the right side and 2+ on the left side. Posterior tibial pulses are 2+ on the right side and 2+ on the left side. Heart sounds: S1 normal and S2 normal. Murmur heard. Pulmonary: Effort: Pulmonary effort is normal. Breath sounds: Normal breath sounds. No decreased breath sounds, wheezing, rhonchi or rales. Abdominal: General: Abdomen is protuberant. Palpations: Abdomen is soft. Musculoskeletal: Cervical back: Neck supple. Right lower leg: No edema. Left lower leg: No edema. Skin: General: Skin is warm and dry. Neurological: General: No focal deficit present. Mental Status: She is alert and oriented to person, place, and time. Psychiatric: Attention and Perception: Attention normal. Mood and Affect: Mood normal. Speech: Speech normal. Behavior: Behavior normal. Behavior is cooperative. Thought Content: Thought content normal. Cognition and Memory: Cognition normal. Judgment: Judgment normal. RESULTS: ECGS: Today: SB 43bpm 1st degree AV block RBBB 03/24/2023: SB 42bpm 1st degree AV block RBBB 11/08/2019: SB 51bpm RBBB 06/27/2018: SR 62bpm RBBB 02/08/2015: SB 56bpm RBBB Zio Patch: 03/24/2023: Patient had a min HR of 33 bpm, max HR of 116 bpm, and avg HR of 47bpm. Predominant underlying rhythm was Sinus Rhythm. First Degree AV Block was present. Bundle Branch Block/IVCD was present. QRS morphology changes were present throughout recording. 1 run of Supraventricular Tachycardia occurred lasting 10 beats with a max rate of 116 bpm (avg 105 bpm). Isolated SVEs were rare (<1.0%), SVE Couplets were rare (<1.0%), and no SVE Triplets were present. Isolated VEs were rare (<1.0%), and no VE Couplets or VE Triplets were present. No patient marker or diary entries were submitted Echocardiogram: 10/12/2022 There was sinus bradycardia during the examination. The LV wall thickness is mildly increased (concentric). The left ventricular wall motion is normal. Calculated LV ejection Fraction = 60% (three dimensional volumes). The aortic valve has three leaflets. Mild aortic valve sclerosis is present. Aortic stenosis is absent. 09/06/2018: Normal LV chamber size with mild concentric LVH, sigmoid appearing septum. Normal LV systolic function without regional wall motion abnormality. Calculated LV ejection Fraction = 58% (bi-plane method of discs). Grade I diastolic dysfunction. Mild aortic valve sclerosis without stenosis. Lab Work Reviewed: Component Latest Ref Rng 12/23/2022 04/07/2023 07/21/2023 BUN 6 - 20 mg/dL 37 (H) 38 (H) Creatinine 0.5 - 1.0 mg/dL 1.2 (H) 1.2 (H) Estimated Glomerular Filtration Rate >=60 mL/min 47 (L) 45 (L) Sodium 135 - 146 mmol/L 143 140 Potassium 3.5 - 5.1 mmol/L 3.7 4.3 Chloride 98 - 107 mmol/L 105 103 CO2 22 - 32 mmol/L 24 24 Anion Gap 7 - 15 mmol/L 14 13 Glucose 70 - 120 mg/dL 125 (H) 162 (H) Calcium 8.4 - 10.2 mg/dL 9.7 9.5 Albumin 3.8 - 5.0 g/dL 5.0 5.0 AST 10 - 35 U/L 23 30 Alkaline Phosphatase 35 - 130 U/L 62 56 ALT 10 - 35 U/L 14 11 Bilirubin, Total <=1.2 mg/dL 0.3 0.3 Bilirubin, Direct 0.0 - 0.3 mg/dL <0.2 <0.2 Protein 6.0 - 8.3 g/dL 7.5 7.5 Triglycerides <=174 mg/dL 300 (H) Cholesterol <200 mg/dL 148 HDL Cholesterol >49 mg/dL 36 (L) Non-HDL Cholesterol <=159 mg/dL 112 Hemoglobin A1C 4.0 - 5.6 % 7.3 (H) 7.7 (H) Estimated Average Glucose <126 mg/dL 163 (H) 174 (H) TSH 0.27 - 4.20 uIU/mL 0.92 LDL Cholesterol (Direct Measure) <=129 mg/dL 57 71 ASSESSMENT: SSS/Marked SB-irreversible mild symptomatic 1st degree AV block RBBB HTN HLD DM Hypothyroidism Metabolic syndrome PLAN: -I reviewed the cardiac conduction system with the patient and how it relates to her condition of SSS -Fortunately she is not terribly symptomatic, but I do think she would benefit from a ppm in the near future -Discussed procedure and risks which include but are not limited to arrhythmias, strokes, heart attacks, high risk injury to with blood vessels, lungs where she would need a chest tube or chamber of the heart where she would need a pericardiocentesis, , bleeding and infection with the patient;she expressed an understanding and wish [facility] the [facility] -She will call us or send a MyG when she is ready to scheduled -She will need BMP and CBC at least 1 month prior to procedure -Her BP is probably on the higher side due to the bradycardia and the body trying to keep the CO up -Device and wound check 1 week after the procedure -Continue with general cardiology f/u -EP f/u PRN Tara Villarreal DO documented in this encounter Procedure Notes * Kip Pruitt DO - 11/05/2023 1:10 PM EDTAssociated Order(s): EKG REASON FOR STUDY: bradycard, RBBB;bradycard, RBBB CONCLUSIONS: Marked sinus bradycardia with 1st degree AV block Left axis deviation Right bundle branch block Abnormal ECG When compared with ECG of 24-Mar-2023 10:39, T wave inversion no longer evident in Anterior leads Ventricular Rate: 43 Atrial Rate: 43 MA Interval: 216 QRS Duration: 152 QT/QTc: 520/439 ms P-R-T [place]: 64 : -41 : 50 degrees documented in this encounter Nursing Notes * Rhona Francois NRCMA - 11/05/2023 1:03 PM EDT Patient was identified by name and date of . Examination Room: 11 Name: Rosalind Morrison Date of : (1945). Reason for Visit: NEW PT Interim Hospitalization(s): no Problems/Concerns: bradycardia Chest Pain/SOB: no Medications reviewed and are up to date via: [employer] [facility] is a way you can talk to your provider online through e-mail. Would you like to sign up? I can activate it for you? ALREADY ACTIVE Do you have video visit capabilities (email and smart phone)? No. Would you be interested in 6 or 12 return visit being scheduled as a video visit if the provider approves? No Patient was instructed to not get up on the exam table/exam chair until directed and assisted by their provider; patient is to remain seated in the chair/ wheelchair/ exam table/ exam chair for fall prevention and safety reasons. Patient is aware to have assistance to step down off exam table/exam chair with personnel. Patient voiced full comprehension of instructions. VIRGIE Khan documented in this encounter Miscellaneous Notes * Addendum Note - Joan Hernandez CMA - 11/05/2023 2:47 PM EDTAddended by: JOAN HERNANDEZ on: 11/05/2023 02:47 PM Modules accepted: Orders documented in this encounter Plan of Treatment Upcoming Encounters Date Type Department Care Team (Late st Contact Info) Description 03/09/2024 2:00 PM EDT Nurse Only Ancillary Department, [address] [address] [place], Nurse Annual Wellness [address] [facility], [place] [address] 05/19/2024 9:50 AM EDT Office Visit Family [facility], [place] [address] [place] [phone] Claire Gabriel, DO [address] [facility] [address] Scheduled Procedures Name Priority Associated Diagnoses Date/Ti [...] Additional history exists CKD HGB USE SMARTSET 50085 11/07/202411/07, 09/17/2022, 09/04/2021, Additional history exists CKD PHOS USE SMARTSET 69164 11/07/2024 032 12/2023, 09/17/2022, 12/13/2020, Additional history exists TSH 11/10/2024 11/11/2023, 05/, 09/17/2022, Additional history exists Colonoscopy Discontinued 08/29/2013, [...] Not on filedocumented as of this encounter Procedures Procedure Name Priority Date/Time Associated Diagnosis Comments MA ECG ROUTINE ECG W/LEAST 12 LDS W/I&R Routine 11/05/2023 1:10 PM EDT Bradycardia, sinus RBBB (right bundle branch block) documented in this encounter Results * EKG (11/05/2023 1:10 PM EDT) 11/05/2023 1:10 PM EDT Narrative Procedure Note Kip Pruitt DO - 11/05/2023 1:10 PM EDT REASON FOR STUDY: bradycard, RBBB;bradycard, RBBB CONCLUSIONS: Marked sinus bradycardia with 1st degree AV block Left axis deviation Right bundle branch block Abnormal ECG When compared with ECG of 24-Mar-2023 10:39, T wave inversion no longer evident in Anterior leads Ventricular Rate: 43 Atrial Rate: 43 MA Interval: 216 QRS Duration: 152 QT/QTc: 520/439 ms P-R-T [place]: 64 : -41 : 50 degrees Tara Villarreal DO EKG [facility] documented in this encounter Visit Diagnoses Diagnosis Bradycardia, sinus- Primary Other specified cardiac dysrhythmias RBBB (right bundle branch block) Right bundle branch block HTN, goal below 140/90 Unspecified essential hypertension Dyslipidemia, goal LDL below 70 Other and unspecified hyperlipidemia documented in this encounter Advance Directives Documents on File Type Date Recorded Patient Staking Press Operator Expl anation Advance Directives and Living Will 11/12/2023 signed on 01/26/2023 ADVANCE DIRECTIVE / LIVING WILL LIVING WILL Power of Automotive Consultant 11/12/2023 signed on 01/26/2023 POWER OF FLARE STITCHER Care Teams Residential Solar Sales Consultant Relationship Specialty Start Date End Date Claire Gabriel DO [address], [place] [phone] PCP - General Family Medicine 11/06/19 documented as of this encounter
--- OUTSIDE RECORDS SUMMARY | 2023-12-01 04:07 | External Medical Summary | Summary of Care ---
Author Name Unknown Organization [facility] Address [address] [place] [address] Phone [phone] Care Team Providers Care Corporate Statistical Financial Analyst Name Role Phone Claire Gabriel DO Primary Care Provider [phone] Reason for Visit * Reason Onset Date Comments Appointment 11/15/2023 Pacermaker impla nt Encounter Details Date Type Department Care Team (Late st Contact Info) Description 11/15/2023 Telephone Cardiology, [place] [address] [facility] [place] [address] Tara Villarreal DO [address] [facility] [address] Appointment (Pacermaker implant) Allergies Active Allergy Reactions Criticality Noted Date Comments Exenatide Hives Medium 05/04/2016 Liraglutide Hives Medium 09/27/2014 documented as of this encounter (statuses as of 11/16/2023) Medications Medication Sig Dispensed Refills Start Date [...] 200 mg daily. 0 06/27/2018 Active Biotin 14965 MCG Oral Tablet Take 1 Tablet by [...] as of this encounter (statuses as of 11/16/2023) Active Problems Problem Noted Date Diagnosed Date [...] as of this encounter (statuses as of 11/16/2023) Resolved Problems Problem Noted Date Diagnosed Date [...] as of this encounter (statuses as of 11/16/2023) Immunizations Name Administration Dates Next Due COVID-19 [...] encounter Miscellaneous Notes * Telephone Encounter - Selam Herring OSA - 11/16/2023 9:05 AM EDT Person calling: pt Relationship to patient: pt Number to return call: [phone] Reason for call: pt calling to get scheduled for a pacemaker at [facility] please call this afternoon she is going to the dentist for 11 am Pharmacy: na Provider Name:Dr Villarreal Thank you JESSIE Quintana documented in this encounter Plan of Treatment Upcoming Encounters Date Type Department Care Team (Late st Contact Info) Description 03/09/2024 2:00 PM EDT Nurse Only Ancillary Department, [place] [address] [facility] [address] [place], Nurse [facility] [address] [facility] [place] [address] 05/19/2024 9:50 AM EDT Office Visit Family Practice, [place] [address] [facility] [phone] Claire [facility] DO [address] [facility] [address] Scheduled Procedures Name Priority Associated Diagnoses Date/Ti [...] Additional history exists CKD HGB USE SMARTSET 73758 11/07/202411/07, 09/17/2022, 09/04/2021, Additional history exists CKD PHOS USE SMARTSET 49736 11/07/202410/15, 09/17/2022, 12/13/2020, Additional history exists TSH [...] Documents on File Type Date Recorded Patient Desktop Engineer Expl anation Advance Directives and Living Will 11/12/2023 signed on 01/26/2023 ADVANCE DIRECTIVE / LIVING WILL LIVING WILL Power of Glass Silverer 11/12/2023 signed on 01/26/2023 POWER OF SPICE FUMIGATOR Care Teams Corporate Statistical Financial Analyst Relationship Specialty Start Date End Date Claire Gabriel DO [address] [facility] [place] [address] PCP - General Family Medicine 11/06/19 documented as of this encounter
--- OUTSIDE RECORDS SUMMARY | 2023-12-01 04:07 | External Medical Summary | Summary of Care ---
Author Name Unknown Organization [facility] Address [address] [place] [address] Phone [phone] Care Team Providers Care Partner Marketing Manager Name Role Phone Claire Gabriel DO Primary Care Provider Encounter Details Date Type Department Care Team (Latest Contact Info) Description 11/15/2023 Medication Management [facility] [address] [place], [place] [id number] [facility] [address] [place] [address] Referred for management of medication therapy* Allergies Active Allergy Reactions Criticality Noted Date Comments Exenatide Hives Medium 05/04/2016 Liraglutide Hives Medium 09/27/2014 documented as of this encounter (statuses as of 11/22/2023) Medications Medication Sig Dispensed Refills Start Date [...] in the morning. 0 06/27/2018 Active Biotin 55764 MCG Oral Tablet Take 1 Tablet by [...] as of this encounter (statuses as of 11/22/2023) Active Problems Problem Noted Date Diagnosed Date [...] as of this encounter (statuses as of 11/22/2023) Resolved Problems Problem Noted Date Diagnosed Date [...] as of this encounter (statuses as of 11/22/2023) Immunizations Name Administration Dates Next Due COVID-19 [...] on file documented as of this encounter Progress Notes * Adilene Tsai, [facility] - 11/15/2023 1:17 PM EDT Rosalind Morrison is a 78 year old female. Objective: Review of patient's allergies indicates: Allergen Reactions Byetta [Exenatide] Hives Victoza [Liraglutide] Hives Current Outpatient Medications - WARNING: List may be incomplete due to filtering Medication Sig Dispense Refill glipiZIDE ER 2.5 MG Oral Tablet Extended Release 24 Hour (Glucotrol XL) TAKE 1 TABLET BY MOUTH IN THE MORNING 90 Tablet 2 Lisinopril-hydroCHLOROthiazide 20-25 MG Oral Tablet Take 1 Tablet by mouth in the morning. 100 Tablet 1 Empagliflozin 25 MG Oral Tablet (Jardiance) Take 1 Tablet by mouth in the morning. 90 Tablet 1 Levothyroxine Sodium 75 MCG Oral Tablet TAKE 1 TABLET BY MOUTH IN THE MORNING AT LEAST 30 MIN PRIORTO BREAKFAST OR OTHER MEDS 90 Tablet 0 Gemfibrozil 600 MG Oral Tablet (Lopid) TAKE 1 TABLET BY MOUTH TWICE DAILY 30 MINUTES BEFORE THE MORNING AND EVENING MEALS 180 Tablet 1 Tradjenta 5 MG Oral Tablet (linaGLIPtin) TAKE 1 TABLET BY MOUTH IN THE MORNING 90 Tablet 2 Pregabalin 300 MG Oral Capsule (Lyrica) Take 1 Capsule by mouth in the morning and 1 Capsule beforebedtime. 60 Capsule 5 amLODIPine Besylate 2.5 MG Oral Tablet (Norvasc) Take 1 Tablet by mouth in the morning. 90 Tablet 2 Rosuvastatin Calcium 5 MG Oral Tablet (Crestor) Take 1 Tablet by mouth in the morning. 90 Tablet 3 Icosapent Ethyl 1 GM Oral Capsule (Vascepa) TAKE 2 CAPSULES BY MOUTH WITH BREAKFAST AND 2 WITH EVENING MEAL DO NOT CUT, CRUSH, OR CHEW 120 Capsule 11 Biotin 37830 MCG Oral Tablet Take 1 Tablet by mouth in the morning. Coenzyme Q-10 200 MG Oral Capsule Take 1 Capsule by mouth in the morning. B Complex-Folic Acid (B COMPLEX FORMULA 1) TABS Take 1 Tablet by mouth every evening. Multiple Vitamins-Minerals (MULTI FOR HER 50+) CAPS Take 1 Capsule by mouth in the morning. ASPIRIN 81 MG PO TABS Take 1 Tablet by mouth every evening. Lighting by LEDTouch Ultra In Vitro Strip (Glucose Blood) USE STRIP TO CHECK GLUCOSE 4 TIMES DAILY 400 Strip 1 OneTouch UltraSoft Lancets Use up to four times a day as directed ( delica) 250.00 100 Each 10 OneTouch Ultra Control In Vitro Solution Use as directed. 1 Each 0 Immunization History Administered Date(s) Administered COVID-19 mRNA, LNP-s, No Preserve, 2-Dose Series (Moderna) 09/18/2020, 10/16/2020, 01/05/2022 COVID-19, MRNA-LNP, 23-24, PF, 50 MCG/0.5 mL, 12 YRS AND ABOVE, IM (MODERNA- Spikevax) 06/29/2023 COVID-19, mRNA, LNP-s, PF, Booster, 100mcg/0.5mg (Moderna) 06/14/2021 Covid-19, Mrna, Lnp-s, Pf, Bivalent, 30 Mcg, IM, 12 yrs and above (Pfizer) 05/18/2022 Pneumococcal Conjugate Vacc, 13 Valent (Prevnar) 08/20/2014 Pneumococcal Polysaccharide PPV23 (Pneumovax) 02/10/2006, 11/02/2016 RSV Vac., Recomb, Adjuvant, PF,0.5 Ml (Arexvy) 07/15/2023 Season Influenza, Quad, PF, Adjuvanted, 65+ Yrs, IM (FLUAD) 05/22/2020 Seasonal Influenza, PF, 6 M & above, IM , (FluLaval or Fluzone) 05/10/2017, 06/14/2018 Seasonal Influenza, Quadrivalent Hd (Fluzone Hd) 05/28/2021, 06/04/2023 Seasonal Influenza, Quadrivalent, No Preserve, IM 06/11/2015, 05/04/2016 Seasonal Influenza, Split, IIV3, With Preserve, Inj 05/16/2006, 05/16/2007, 07/09/2009, 05/16/2010,05/27/2011, 06/30/2012, 06/20/2013, 06/07/2014 Seasonal Influenza, Trivalent, Adjuvanted, 65+ yrs 06/19/2019 TD - Tetanus/Diptheria (ADULT) 06/06/1999 TDAP (age 11 and older)(Adacel) 07/28/2010 Varicella Zoster Vaccine (Adult) 02/08/2012 Zoster Vaccine Recombinant (Shingrix) 05/13/2019, 08/27/2019 TMR Interventions Incomplete Medication Therapy Recommendations No medication therapy recommendations to display Completed Medication Therapy Recommendations No medication therapy recommendations to display Assessment & Plan Indication, effectiveness, safety and convenience of her medications were reviewed today. The patient's medical conditions were assessed, evaluated, and deemed meeting goals of drug therapy, with thefollowing exceptions. Additional Notes: Patient appears adherent to medications. She denies issues at this time. She also denies GMO and refills and states she is happy with [facility]. Discussed cost savings and will send additional information in mail. Pt is occasionally checking BG (110 last recall), has had lows in past when first starting glipizide, so discussed rule of 15 for corrections. Pt on DPP4 and would benefit from GLP1 therapy, but she has unfortunately not tolerated well in the past. Last A1c has improved to 7.1%.. Reviewed AMP report - pt UTD on vaccinations. Reminded of DEXA scan and annual DM foot exams. Summary Time Spent: 31-45 min Supervising pharmacist who provided the service: Saul Samson Information Who was the recipient of the CMR service: beneficiary Language Template for the Patient Takeaway: Pakistani I attest that I have reviewed and updated the patient's conditions, allergies, and medications to the best of my ability. Patient provided medication list gathered by: Pastor Molina RPh 11/15/2023, 1:17 PM documented in this encounter Miscellaneous Notes * MTM To-Do-List - Adilene Tsai RPh - 11/22/2023 7:48 AM EDT Images from the original note were not included. What we talked about: What I should do: The importance of taking your medication as prescribed Your medicine works best when taken as prescribed. It can be hard to remember to take daily medications. Consider making it a part of your daily routine. Pair taking your medication with something you do every day, like brushing your teeth or eating a meal. Consider setting daily alarms to help remind yourself when it is time to take your medicine. Using a pill box can also help you organize your medicines. Pill boxes allow you to fill each day slot with your daily medicine and help you track when your next dose is due. What we talked about: What I should do: What to do if your blood sugar is too low When your blood sugar is 70 mg/dl or below, it is important to increase blood sugar immediately. Low blood sugar could lead to coma and even . When you notice your sugar is low, eat a small snack containing sugar. Some examples include: drink a small amount of orange juice (4 ounces), 4 ounces of regular soda or milk, taking glucose tablets (15 grams), or eat 1 tablespoonful of sugar. Wait 15 minutes, and recheck your blood sugar. If your sugar is still low, try to increase it again by eating a small amount of sugar. Recheck your blood sugar in 15 minutes. If after two attempts to raise it, and your blood sugar is still low-call your doctor immediately. What we talked about: What I should do: Checking your feet at home When you have diabetes, it could put you at an increased risk for foot infections. Checking your feet at home is a great way to prevent foot infections. Check your feet daily for cuts, scrapes, blisters, sores and signs of infection. Signs of infection could include redness, swelling or skin feeling warm to touch. If you cannot see the bottom of your feet, use a mirror or ask someone for help. What we talked about: What I should do: [facility] You can get a 90 day supply of your prescription medications delivered to your home. You also can be signed up for automatic refills. Typically, patients who switch to mail order save money on their monthly prescriptions. You will have access to a pharmacist to answer any questions about your medications (Wednesday- Wednesday, 6:30 am to 7 pm). Call [phone] to enroll in mail order services today. * [place] Personal Medication List - Adilene Tsai RPh - 11/22/2023 7:45 AM EDT Medication How I take it Why I use it Prescriber amLODIPine Besylate 2.5 MG Oral Tablet (Norvasc) Take 1 Tablet by mouth in the morning. Blood Pressure Claire Gabriel, DO ASPIRIN 81 MG PO TABS Take 1 Tablet by mouth every evening. Heart Health Self B Complex-Folic Acid (B COMPLEX FORMULA 1) TABS Take 1 Tablet by mouth every evening. General Health Self Biotin 56329 MCG Oral Tablet Take 1 Tablet by mouth in the morning. General Health Self Coenzyme Q-10 200 MG Oral Capsule Take 1 Capsule by mouth in the morning. General Health Arnoldo Manuel MD Empagliflozin 25 MG Oral Tablet (Jardiance) Take 1 Tablet by mouth in the morning. Diabetes Claire Saenz, DO Gemfibrozil 600 MG Oral Tablet (Lopid) TAKE 1 TABLET BY MOUTH TWICE DAILY 30 MINUTES BEFORE THE MORNING AND EVENING MEALS Cholesterol Claire Gabriel, DO glipiZIDE ER 2.5 MG Oral Tablet Extended Release 24 Hour (Glucotrol XL) TAKE 1 TABLET BY MOUTH IN THE MORNING Diabetes Claire Gabriel DO Icosapent Ethyl 1 GM Oral Capsule (Vascepa) TAKE 2 CAPSULES BY MOUTH WITH BREAKFAST AND 2 CAPSULES WITH EVENING MEAL. DO NOT CUT, CRUSH, OR CHEW Cholesterol Deirdre Mares PA-C Levothyroxine Sodium 75 MCG Oral Tablet TAKE 1 TABLET BY MOUTH IN THE MORNING AT LEAST 30 MIN PRIORTO BREAKFAST OR OTHER MEDS Thyroid Disorder Claire Gabriel DO Lisinopril-hydroCHLOROthiazide 20-25 MG Oral Tablet Take 1 Tablet by mouth in the morning. Blood Pressure Deirdre Mares PA-C Multiple Vitamins-Minerals (MULTI FOR HER 50+) CAPS Take 1 Capsule by mouth in the morning. GeneralHealth Self Pregabalin 300 MG Oral Capsule (Lyrica) Take 1 Capsule by mouth in the morning and 1 Capsule beforebedtime. Diabetes Claire Gabriel DO Rosuvastatin Calcium 5 MG Oral Tablet (Crestor) Take 1 Tablet by mouth in the morning. Cholesterol Deirdre Maers PA-C Tradjenta 5 MG Oral Tablet (linaGLIPtin) TAKE 1 TABLET BY MOUTH IN THE MORNING Diabetes Claire Gabriel DO documented in this encounter Plan of Treatment Upcoming Encounters Date Type Department Care Team (Late st Contact Info) Description 03/09/2024 2:00 PM EDT Nurse Only Ancillary Department, [place] [address] [facility] [address] [place], Nurse Annual Wellness [address] [facility] [place] [address] 05/19/2024 9:50 AM EDT Office Visit Family [facility], [place] [address] [facility] [phone] Claire Gabriel DO [address] [address] Scheduled Procedures Name Priority Associated Diagnoses Date/Ti [...] Additional history exists CKD HGB USE SMARTSET 06236 11/07/202411/07, 09/17/2022, 09/04/2021, Additional history exists CKD PHOS USE SMARTSET 60225 11/07/202410/15, 09/17/2022, 12/13/2020, Additional history exists TSH [...] as of this encounter Visit Diagnoses Diagnosis Referred for management of medication therapy- Primary Encounter for long-term (current) use of other medications documented in this encounter Advance Directives Documents on File Type Date Recorded Patient Cross Country Truck Driver Expl anation Advance Directives and Living Will 11/12/2023 signed on 01/26/2023 ADVANCE DIRECTIVE / LIVING WILL LIVING WILL Power of Flag Decorator 11/12/2023 signed on 01/26/2023 POWER OF ENVIRONMENTAL SCIENCE TECHNICIAN Care Teams Partner Marketing Manager Relationship Specialty Start Date End Date Claire Gabriel DO [address] [place] [address] PCP - General Family Medicine 11/06/19 documented as of this encounter
--- OUTSIDE RECORDS SUMMARY | 2023-12-01 04:07 | External Medical Summary | Summary of Care ---
Author Name Unknown Organization [facility] Address [address] [place] [address] Phone [phone] Care Team Providers Care Director Child Development Center Name Role Phone Claire Gabriel DO Primary Care Provider Reason for Visit * Reason Onset Date Comments Appointment 11/15/2023 Pacermaker impla nt Encounter Details Date Type Department Care Team (Late st Contact Info) Description 11/15/2023 Telephone Cardiology, [place] [address] [facility] [place] [address] Tara Villarreal DO [address] [place] [address] Appointment (Pacermaker implant) Allergies Active Allergy Reactions Criticality Noted Date Comments Exenatide Hives Medium 05/04/2016 Liraglutide Hives Medium 09/27/2014 documented as of this encounter (statuses as of 11/17/2023) Medications Medication Sig Dispensed Refills Start Date [...] 200 mg daily. 0 06/27/2018 Active Biotin 02569 MCG Oral Tablet Take 1 Tablet by [...] as of this encounter (statuses as of 11/17/2023) Active Problems Problem Noted Date Diagnosed Date [...] as of this encounter (statuses as of 11/17/2023) Resolved Problems Problem Noted Date Diagnosed Date [...] as of this encounter (statuses as of 11/17/2023) Immunizations Name Administration Dates Next Due COVID-19 [...] encounter Miscellaneous Notes * Telephone Encounter - Camelia Barboza OSA - 11/17/2023 9:44 AM EDT Person calling: Rosalind Relationship to patient: self Number to return call: [phone] Reason for call: Calling to schedule pacemaker appt Pharmacy: Provider Name: Dr. Villarreal * Telephone Encounter - Selam Herring OSA - 11/16/2023 9:05 AM EDT Person calling: pt Relationship to patient: pt Number to return call: [phone] Reason for call: [facility] she is going to the dentist for 11 am Pharmacy: na Provider Name:Dr Villarreal Thank you JESSIE Quintana documented in this encounter Plan of Treatment Upcoming Encounters Date Type Department Care Team (Late st Contact Info) Description 03/09/2024 2:00 PM EDT Nurse Only Ancillary Department, [place] [address] [place] [address] [place], Nurse Annual Wellness [address] [place] [address] 05/19/2024 9:50 AM EDT Office Visit [facility], [place] [address] [place] [phone] Claire Gabriel, DO [address] [place] [address] Scheduled Procedures Name Priority Associated Diagnoses Date/Ti [...] Additional history exists CKD HGB USE SMARTSET 09154 11/07/202411/07, 09/17/2022, 09/04/2021, Additional history exists CKD PHOS USE SMARTSET 51477 11/07/202410/15, 09/17/2022, 12/13/2020, Additional history exists TSH [...] Documents on File Type Date Recorded Patient Supervisor Sleeping Bag Department Expl anation Advance Directives and Living Will 11/12/2023 signed on 01/26/2023 ADVANCE DIRECTIVE / LIVING WILL LIVING WILL Power of Recovery Unit Operator 11/12/2023 signed on 01/26/2023 POWER OF MARBLE HELPER Care Teams Director Child Development Center Relationship Specialty Start Date End Date Claire Gabriel DO [address] [place] [address] PCP - General Family Medicine 11/06/19 documented as of this encounter
--- OUTSIDE RECORDS SUMMARY | 2023-12-01 04:07 | External Medical Summary | Summary of Care ---
Author Name Unknown Organization [facility] Address [address] [place] [address] Phone [phone] Care Team Providers Care Chief Operator Reformer Name Role Phone Claire Gabriel DO Primary Care Provider Reason for Visit * Reason Onset Date Comments Appointment 11/15/2023 Pacermaker impla nt Encounter Details Date Type Department Care Team (Late st Contact Info) Description 11/15/2023 Telephone Cardiology, [place] [address] [place] [address] Tara Villarreal DO [address] [place] [address] Appointment (Pacermaker implant) Allergies Active Allergy [...] 200 mg daily. 0 06/27/2018 Active Biotin 59701 MCG Oral Tablet Take 1 Tablet by [...] Telephone Encounter - Tesha Atkinson LPN - 11/17/2023 10:16 AM EDT Spoke with Pt, will discuss with provider and set up procedure. * Telephone Encounter - Camelia Barboza OSA - 11/17/2023 9:44 AM EDT Person calling: Rosalind Relationship to patient: self Number to return call: [phone] Reason for call: Calling to schedule pacemaker appt Pharmacy: Provider Name: Dr. Villarreal * Telephone Encounter - Selam Herring OSA - 11/16/2023 9:05 AM EDT Person calling: pt Relationship to patient: pt Number to return call: [phone] Reason for call: pt calling to get scheduled [facility] a [facility] please call this afternoon she is going to the dentist for 11 am Pharmacy: na Provider Name:Dr Villarreal Thank you JESSIE Quintana documented in this encounter Plan of Treatment Upcoming Encounters Date Type Department Care Team (Late st Contact Info) Description 03/09/2024 2:00 PM EDT Nurse Only Ancillary Department, [place] [address] [place] [address] [place], Nurse Annual Wellness [address] [place] [address] 05/19/2024 9:50 AM EDT Office Visit [facility], [place] [address] [place] [address] Claire Gabriel, DO [address] [place] [address] Scheduled Procedures Name Priority Associated Diagnoses Date/Ti [...] Additional history exists CKD HGB USE SMARTSET 81749 11/07/202411/07, 09/17/2022, 09/04/2021, Additional history exists CKD PHOS USE SMARTSET 11337 11/07/2024 032 12/2023, 09/17/2022, 12/13/2020, Additional history [...] Documents on File Type Date Recorded Patient Business Coordinator Expl anation Advance Directives and Living Will 11/12/2023 signed on 01/26/2023 ADVANCE DIRECTIVE / LIVING WILL LIVING WILL Power of Lighting Engineering Technician 11/12/2023 signed on 01/26/2023 POWER OF BONDING SUPERVISOR Care Teams Chief Operator Reformer Relationship Specialty Start Date End Date Claire Gabriel DO [address] [place] [address] PCP - General Family Medicine 11/06/19 documented as of this encounter
--- OUTSIDE RECORDS SUMMARY | 2023-12-01 04:07 | External Medical Summary | Summary of Care ---
Author Name Unknown Organization [facility] Address [address] [place] [address] Phone [phone] Care Team Providers Care Engine Room Operator Name Role Phone Claire Gabriel DO Primary Care Provider Reason for Visit * Reason Onset Date Comments Appointment 11/15/2023 Pacermaker impla nt Encounter Details Date Type Department Care Team (Late st Contact Info) Description 11/15/2023 Telephone Cardiology, [place] [address] [facility] [place] [address] Tara Villarreal DO [address] [place] [address] Appointment (Pacermaker implant) Allergies [...] 200 mg daily. 0 06/27/2018 Active Biotin 53523 MCG Oral Tablet Take 1 Tablet by [...] to patient: pt Number to return call: [phone] Reason for call: pt calling to get scheduled for a pacemaker at [facility] [address] please call this afternoon she is going to the dentist for 11 am Pharmacy: na Provider Name:Dr Villarreal Thank you JESSIE Quintana documented in this encounter Plan of Treatment Upcoming Encounters Date Type Department Care Team (Late st Contact Info) Description 03/09/2024 2:00 PM EDT Nurse Only Ancillary Department, [place] [address] [address] [place], Nurse Annual Well[facility] [address] [facility] [place] [address] 05/19/2024 9:50 AM EDT Office Visit Family Practice, [place] [address] [phone] Claire Gabriel [facility] [address] [facility] [address] Scheduled Procedures Name Priority Associated Diagnoses Date/Ti [...] Additional history exists CKD HGB USE SMARTSET 65390 11/07/202411/07, 09/17/2022, 09/04/2021, Additional history exists CKD PHOS USE SMARTSET 18924 11/07/202410/15, 09/17/2022, 12/13/2020, Additional history exists TSH [...] Documents on File Type Date Recorded Patient Distance Education Director Expl anation Advance Directives and Living Will 11/12/2023 signed on 01/26/2023 ADVANCE DIRECTIVE / LIVING WILL LIVING WILL Power of Spiral Weaver 11/12/2023 signed on 01/26/2023 POWER OF CANTEEN ATTENDANT Care Teams Engine Room Operator Relationship Specialty Start Date End Date Claire Gabriel DO [address] [facility] [place] [address] PCP - General Family Medicine 11/06/19 documented as of this encounter
--- OUTSIDE RECORDS SUMMARY | 2023-12-01 04:07 | External Medical Summary | Summary of Care ---
Author Name Unknown Organization [facility] Address [address] [place] [address] Phone [phone] Care Team Providers Care Fine Jewelry Sales Associate Name Role Phone Claire Gabriel DO Primary Care Provider Encounter Details Date Type Department Care Team (Late st Contact Info) Description 11/11/2023 Population Health External Data Unspecified Department Allergies Active Allergy Reactions Criticality Noted Date [...] 200 mg daily. 0 06/27/2018 Active Biotin 35343 MCG Oral Tablet Take 1 Tablet by [...] on file documented as of this encounter Plan of Treatment Upcoming Encounters Date Type Department Care Team (Late st Contact Info) Description 03/09/2024 2:00 PM EDT Nurse Only Ancillary Department, [place] [address] [place] [address] [place], Nurse Annual Wellness [address] [place] [address] 05/19/2024 9:50 AM EDT Office Visit [facility], [place] [address] [place] [facility] [place] [address] Claire Gabriel, [address] [place], [place] [phone] Scheduled Procedures Name Priority Associated Diagnoses Date/Ti [...] Additional history exists CKD HGB USE SMARTSET 84171 11/07/202411/07, 09/17/2022, 09/04/2021, Additional history exists CKD PHOS USE SMARTSET 29362 11/07/2024 032 12/2023, 09/17/2022, 12/13/2020, Additional history [...] Documents on File Type Date Recorded Patient Chief Controller Tower Expl anation Advance Directives and Living Will 11/12/2023 signed on 01/26/2023 ADVANCE DIRECTIVE / LIVING WILL LIVING WILL Power of Tax Manager Public 11/12/2023 signed on 01/26/2023 POWER OF CADASTRAL ENGINEER Care Teams Fine Jewelry Sales Associate Relationship Specialty Start Date End Date Claire Gabriel DO [address] [facility] [place] [address] PCP - General Family Medicine 11/06/19 documented as of this encounter
--- OUTSIDE RECORDS SUMMARY | 2023-12-01 04:07 | External Medical Summary | Summary of Care ---
Author Name Unknown Organization [facility] Address [address] [place] [address] Phone [phone] Care Team Providers Care Millinery Department Manager Name Role Phone Claire Gabriel DO Primary Care Provider Reason for Visit * Reason Onset Date Comments Appointment 11/15/2023 Pacermaker impla nt Encounter Details Date Type Department Care Team (Late st Contact Info) Description 11/15/2023 Telephone Cardiology, [place] [address] [place] [address] Tara Villarreal DO [address] [facility] [place] [address] Appointment (Pacermaker implant) Allergies Active Allergy [...] 200 mg daily. 0 06/27/2018 Active Biotin 84701 MCG Oral Tablet Take 1 Tablet by [...] to patient: self Number to return call: [phone] Reason for call: Calling to schedule pacemaker appt Pharmacy: Provider Name: Dr. Villarreal * Telephone Encounter - Selam Herring OSA - 11/16/2023 9:05 AM EDT Person calling: pt Relationship to patient: pt Number to return call: [phone] Reason for call: [facility] going to the dentist for 11 am Pharmacy: na Provider Name:Dr Villarreal Thank you JESSIE Quintana documented in this encounter Plan of Treatment Upcoming Encounters Date Type Department Care Team (Late st Contact Info) Description 03/09/2024 2:00 PM EDT Nurse Only Ancillary Department, [place] [address] [place] [address] [place], Nurse [facility] [address] [place] [address] 05/19/2024 9:50 AM EDT Office Visit [facility][1], [place] [address] [place] [id number] Claire Gabriel, DO [address] [place] [address] Scheduled Procedures Name Priority Associated Diagnoses Date/Ti [...] Additional history exists CKD HGB USE SMARTSET 60429 11/07/202411/07, 09/17/2022, 09/04/2021, Additional history exists CKD PHOS USE SMARTSET 12362 11/07/202410/15, 09/17/2022, 12/13/2020, Additional history exists TSH [...] Documents on File Type Date Recorded Patient Quality Lead Expl anation Advance Directives and Living Will 11/12/2023 signed on 01/26/2023 ADVANCE DIRECTIVE / LIVING WILL LIVING WILL Power of Colleter 11/12/2023 signed on 01/26/2023 POWER OF HAIRMASTERS MANAGER Care Teams Millinery Department Manager Relationship Specialty Start Date End Date Claire Gabriel DO [address] [place] [address] PCP - General Family Medicine 11/06/19 documented as of this encounter
--- OUTSIDE RECORDS SUMMARY | 2023-12-01 04:08 | External Medical Summary | Summary of Care ---
Author Name Unknown Organization [facility] Address [address] [place] [address] Phone [phone] Care Team Providers Care Radar Technician Name Role Phone Claire Gabriel DO Primary Care Provider Reason for Visit * Reason Comments Follow Up 3 month return No is sues but would like to discuss her lisinopril and wants to know if she should drop it to once a day Encounter Details Date Type Department Care Team (Late st Contact Info) Description 11/11/2023 8:30 AM EDT Office Visit [facility] [address] [place] [address] Claire Gabriel, [address], [place] [id number] Diabetes mellitus with stage 3 chronic kidney disease (HCC)*; HTN, goal below 140/90; Hypothyroidism due to acquired atrophy of thyroid; Bradycardia, sinus; Dyslipidemia, goal LDL below 70 Allergies Active Allergy Reactions Criticality Noted Date Comments Exenatide Hives Medium 05/04/2016 Liraglutide Hives Medium 09/27/2014 documented as of this encounter (statuses as of 11/11/2023) Medications Medication Sig Dispensed Refills Start Date End Date Status ASPIRIN 81 MG PO TABS 1 TABLET DAILY 0 Active Multiple Vitamins-Minerals (MULTI FOR HER 50+) CAPS Take by mouth. 0 Active B Complex-Folic Acid (B COMPLEX FORMULA 1) TABS Take by mouth. 0 Active coenzyme Q-10 100 MG CapsuleIndications:HT N, goal below 140/90,DM type 2 with diabetic peripheral neuropathy (HCC),Dyslipidemia, goal LDL below 100 Take 1 Capsule by mouth in the morning. Patient states she is taking 200 mg daily. 0 06/27/2018 Active Biotin 10 MG Oral Tablet Take by mouth 2 Tablets . 0 Active OneTouch Ultra Control In Vitro [...] as of this encounter (statuses as of 11/11/2023) Active Problems Problem Noted Date Diagnosed Date [...] as of this encounter (statuses as of 11/11/2023) Resolved Problems Problem Noted Date Diagnosed Date [...] as of this encounter (statuses as of 11/11/2023) Immunizations Name Administration Dates Next Due COVID-19 [...] Passive Smoke Exposure: Never Smokeless Tobacco: Never Tobacco Cessation:Counseling Given: Not Answered Alcohol Use Standard Drinks/Week Comments No 0 [...] Sign Reading Time Taken Comments Blood Pressure 120/50 11/11/2023 8:21 AM EDT Pulse 41 11/11/2023 8:21 AM EDT Temperature 35.6 C (96 F) 11/11/2023 8:21 AM EDT Respiratory Rate 17 11/11/2023 8:21 AM EDT Oxygen Saturation 100% 11/11/2023 8:21 AM EDT Inhaled Oxygen Concentration - - Weight 84.3 kg (185 lb 14.4 oz) 11/11/2023 8:21 AM EDT Height 162.6 cm (5' 4") 11/11/2023 8:21 AM EDT Body Mass Index 31.91 11/11/2023 8:21 AM EDT documented in this encounter Progress Notes * Claire Gabriel, DO - 11/11/2023 8:52 AM EDT Subjective: Rosalind Morrison is a 78 year old female. Chief Complaint Patient presents with Follow Up 3 month return No issues but would like to discuss her lisinopril and wants to know if she should drop it to once a day HPI: 78 yr old female with hx of Type 2 diabetes , hypertension, RBBB, Dyslipidemia, and hypothyroidism. Her had back surgery and complications and has been in [facility], and being discharged today. Is seeing Dr Villarreal. To get pacemaker placed for her bradycardia. She has been asymptomatic. PHM: Patient Active Problem List Diagnosis Code Metabolic [...] Tablet Take by mouth 2 Tablets . OneTouch Ultra Control In Vitro Solution Use as directed. 1 Each 0 OneTouch UltraSoft Lancets Use up to four times a day as directed ( delica) 250.00 100 Each 10 Icosapent Ethyl 1 GM Oral Capsule (Vascepa) [...] mouth in the morning. 90 Tablet 1 OneTouch Ultra In Vitro Strip (Glucose Blood) USE STRIP TO CHECK GLUCOSE 4 TIMES DAILY 400 Strip 1 glipiZIDE ER 2.5 MG Oral Tablet Extended Release 24 Hour (Glucotrol XL) TAKE 1 TABLET BY MOUTH IN THE MORNING 90 Tablet 2 Lisinopril-hydroCHLOROthiazide 20-25 MG Oral Tablet Take 1 Tablet by mouth in the morning. 100 Tablet 1 No current facility-administered medications for this visit. Review of patient's allergies indicates: Allergen Reactions Byetta [Exenatide] Hives Victoza [Liraglutide] Hives Objective: BP 120/50 | Pulse 41 | Temp 35.6 C (96 F) | Resp 17 | Ht 1.626 m (5' 4") | Wt 84.3 kg (185 lb 14.4 oz) | SpO2 100% | BMI 31.91 kg/m | BSA 1.95 m Physical Exam: General: alert, healthy, and no distress Heart: no murmur, no gallops, and bradycardia Lungs: chest symmetric with normal AP diameter, no chest deformities noted, no chest wall tenderness, lungs clear to auscultation Abdomen: abdomen soft, non-tender, normal bowel sounds, and no masses or organomegaly Extremities: no edema ASSESSMENT/PLAN: Diabetes mellitus with stage 3 chronic kidney disease (HCC) (Primary) - HEMOGLOBIN A1C; Future; Expected date: 11/11/2023 HTN, goal below 140/90 - BASIC METABOLIC PANEL; Future; Expected date: 11/11/2023 Hypothyroidism due to acquired atrophy of thyroid - TSH WITH FREE T4 IF INDICATED; Future; Expected date: 11/11/2023 Bradycardia, sinus Dyslipidemia, goal LDL below 70 - LIPID PANEL WITH DIRECT LDL IF TG IS HIGH; Future; Expected date: 11/11/2023 Follow Up: Return in about 4 months (around 03/12/2024) for Labs Today. | For: Labs Today Claire Gabriel DO documented in this encounter Nursing Notes * Iman Delgadillo LPN - 11/11/2023 8:29 AM EDT The patient has been properly identified by confirmation of name and date of . Chief Complaint Patient presents with Follow Up 3 month return No issues but would like to discuss her lisinopril and wants to know if she should drop it to once a day documented in this encounter Plan of Treatment Upcoming Encounters Date Type Department Care Team (Late st Contact Info) Description 03/09/2024 2:00 PM EDT Nurse Only Ancillary Department, [place] [address] [place] [address] [place], Nurse [facility] [address] [place] [address] 05/19/2024 9:50 AM EDT Office Visit [facility] [address] [place] [address] Claire Gabriel DO [address] [place] [address] Pending Results Name Type Priority Associated Diagnoses Date /Time HEMOGLOBIN A1C Lab Routine Diabetes mellitus with stage 3 chronic kidney disease (HCC) 11/11/2023 9:28 AM EDT BASIC METABOLIC PANEL Lab Routine HTN, goal below 140/90 11/11/2023 9:28 AM EDT LIPID PANEL WITH DIRECT LDL IF TG IS HIGH Lab Routine Dyslipidemia, goal LDL below 70 11/11/2023 9:28 AM EDT TSH WITH FREE T4 IF INDICATED Lab Routine Hypothyroidism due to acquired atrophy of thyroid 11/11/2023 9:28 AM EDT Scheduled Orders Name Type Priority Associated Diagnoses Orde r Schedule HEMOGLOBIN A1C Lab Routine Diabetes mellitus with stage 3 chronic kidney disease (HCC) Expected: 11/11/2023 (Approximate), Expires: 11/10/2024 BASIC METABOLIC PANEL Lab Routine HTN, goal below 140/90 Expected: 11/11/2023 (Approximate), Expires: 11/10/2024 LIPID PANEL WITH DIRECT LDL IF TG IS HIGH Lab Routine Dyslipidemia, goal LDL below 70 Expected: 11/11/2023, Expires: 11/10/2024 TSH WITH FREE T4 IF INDICATED Lab Routine Hypothyroidism due to acquired atrophy of thyroid Expected: 11/11/2023 (Approximate), Expires: 11/10/2024 Scheduled Procedures Name Priority Associated Diagnoses Date/Ti me COLONOSCOPY FLEXIBLE PROXIMA L DIAGNOSTIC Recall Benign neoplasm of colon Health Maintenance Due Date Last Done Comments DTaP,Tdap,and Td Vaccines (2 - Td or Tdap) 07/28/2020 07/28/2010, 06/06/1999 Diabetic Foot Exam 09/17/2023 09/17/2022, 0 09/03/2021, 11/20/2020, Additional history exists DXA Scan 11/10/2023 11/09/2016 TSH 12/24/2023 12/23/2022, 02/0 09/2022, 08/26/2021, Additional history exists GFR 01/20/2024 07/21/2023, 08/2 10/2022, 12/23/2022, Additional history exists HbA1c 01/20/2024 07/21/2023, 08/2 10/2022, 12/23/2022, Additional history exists Depression Screening 03/08/2024 03/08/2023 Diabetic Eye Exam 10/01/2024 10/01/2023 (Do ne elsewhere), 10/01/2023, 10/01/2022, Additional history exists Albumin/Creatinine Ratio 11/07/2024 024, 09/17/2022, 10/13/2021, Additional history exists CKD HGB USE SMARTSET 80551 11/07/202411/07, 09/17/2022, 09/04/2021, Additional history exists CKD PHOS USE SMARTSET 95512 11/07/202410/15, 09/17/2022, 12/13/2020, Additional history exists Colonoscopy Discontinued 08/29/2013, 08/29/2013 [...] as of this encounter Visit Diagnoses Diagnosis Diabetes mellitus with stage 3 chronic kidney disease (HCC)- Primary Type II or unspecified type diabetes mellitus with renal manifestations, not stated as uncontrolled HTN, goal below 140/90 Unspecified essential hypertension Hypothyroidism due to acquired atrophy of thyroid Bradycardia, sinus Other specified cardiac dysrhythmias Dyslipidemia, goal LDL below 70 Other and unspecified hyperlipidemia documented in this encounter Care Teams Radar Technician Relationship Specialty Start Date End Date Claire Gabriel DO [address] [place] [address] PCP - General Family Medicine 11/06/19 documented as of this encounter
--- OUTSIDE RECORDS SUMMARY | 2023-12-01 04:08 | External Medical Summary ---
Author Name Unknown Address Unknown Organization [id number]:[facility] [place] - [address] [place] [facility] [address] Laboratory Report Ordering Provider Test Date Status TAQUERIA VEGA 11/11/2023 09:28:29 Final Observation Date Value Abnormality Reference (Units ) Status Triglyceride 11/11/2023 09:28:29 258 Above high normal <=174 (mg/dL) Final Triglyceride Reference Range s (mg/dL):
<150 Acceptable
150-174 Borderline high
175-499 High
>=500 Very high Cholesterol 11/11/2023 09:28:29 155 <200 (mg /dL) Final Total Cholesterol Reference Ranges (mg/dL):
<200 Desirable
200-239 Borderline high
>=240 High HDL 11/11/2023 09:28:29 37 Below low normal >49 (mg/dL) Final HDL Cholesterol Reference Ra nges (mg/dL):
>=60 High (Desirable)
<50 Low (Undesirable) For Females
<40 Low (Undesirable) For Males NON-HDL CHOLESTEROL 11/11/2023 09:28:29 118 <=159 (mg/dL) Final Non-HDL Cholesterol Referenc e Range (mg/dL):
<100 Target level for high risk ASCVD patient
<130 Optimal for general population
130-159 Near optimal for general population
160-189 Borderline High
190-219 High
>=220 Very High Performing Location [facility] [place] - [address] [place] [address]
--- OUTSIDE RECORDS SUMMARY | 2023-12-01 04:08 | External Medical Summary ---
Author Name Unknown Address Unknown Organization [id number]:[facility] - [address] [place] [address] Laboratory Report Ordering Provider Test Date Status TAQUERIA VEGA 11/08/2023 08:27:41 Final Observation Date Value Abnormality Reference (Units ) Status Phosphate 11/08/2023 08:27:41 4.1 2.5-4.8 (m g/dL) Final Performing Location [facility] - [address] [place] [address]
--- OUTSIDE RECORDS SUMMARY | 2023-12-01 04:08 | External Medical Summary ---
Author Name Unknown Address Unknown Organization [id number]:[facility] [place] - [facility] [address] [place] [address] Laboratory Report Ordering Provider Test Date Status TAQUERIA VEGA 11/11/2023 09:28:29 Final Observation Date Value Abnormality Reference (Units ) Status BUN 11/11/2023 09:28:29 35 Above high normal 6-20 (mg/dL) Final Creatinine 11/11/2023 09:28:29 1.2 Above high normal 0.5-1.0 (mg/dL) Final Glomerular filtration rate/1.73 sq M.predicted [Volume Rate/Area] in Serum, Plasma or Blood by Creatinine-based formula (CKD-EPI) 11/11/2023 09:28:29 47 Below low normal >=60 (mL/min) Final eGFR is calculated based on the CKD-EPI 2020 equation Sodium 11/11/2023 09:28:29 142 135-146 (m mol/L) Final Potassium 11/11/2023 09:28:29 4.1 3.5-5.1 (m mol/L) Final Cl 11/11/2023 09:28:29 105 98-107 (mm ol/L) Final CO2 11/11/2023 09:28:29 23 22-32 (mmo l/L) Final Anion gap 11/11/2023 09:28:29 14 7-15 (mmol /L) Final Glucose 11/11/2023 09:28:29 128 Above high normal 70 -120 (mg/dL) Final Calcium 11/11/2023 09:28:29 9.6 8.4-10.2 ( mg/dL) Final Performing Location [facility] [place] - [facility] [address] [place] [address]
--- OUTSIDE RECORDS SUMMARY | 2023-12-01 04:08 | External Medical Summary ---
Author Name Unknown Address Unknown Organization [id number]:[facility] [place] - [facility] [address] [place] [address] Laboratory Report Ordering Provider Test Date Status TAQUERIA VEGA 11/08/2023 08:27:41 Final Observation Date Value Abnormality Reference (Units ) Status WBC, Total 11/08/2023 08:27:41 3.85 Below low normal 4.00-10.80 (K/uL) Final RBC 11/08/2023 08:27:41 4.61 3.85-5.15 (M/uL) Final Hemoglobin 11/08/2023 08:27:41 13.8 12.0-15.3 (g/dL) Final HCT 11/08/2023 08:27:41 42.3 36.0-45.2 (%) Final MCV 11/08/2023 08:27:41 91.8 81.5-97.5 (fL) Final MCH 11/08/2023 08:27:41 29.9 27.0-34.0 (pg) Final MCHC 11/08/2023 08:27:41 32.6 32.0-36.0 (g/dL) Final RDW 11/08/2023 08:27:41 13.9 11.5-15.5 (%) Final Platelets 11/08/2023 08:27:41 196 140-400 (K/uL) Final MPV 11/08/2023 08:27:41 11.8 6.6-11.1 (fL) Final Nucleated erythrocytes/100 leukocytes [Ratio] in Blood by Automated count 11/08/2023 08:27:41 0 <=0 (/100 WBCs) Final Performing Location LAB[facility] [place] - [address] [place] [address]
--- OUTSIDE RECORDS SUMMARY | 2023-12-01 04:08 | External Medical Summary | Summary of Care ---
Author Name Unknown Organization [facility] Address [address] [place] [address] Phone [phone] Care Team Providers Care Supervisor Pressing Department Name Role Phone BartolomeClaire patino Murphy LIU Primary Care Provider Reason for Visit * Reason Comments Follow Up Encounter Details Date Type Department Care Team (Late st Contact Info) Description 10/15/2023 1:30 PM EST Office Visit Cardiology, [facility] [address] [place] [address] Deirdre Mares PA-C [address] [place] [address] HTN, goal below 140/90*; Dyslipidemia, goal LDL below 70; Bradycardia, sinus; RBBB (right bundle branch block) Allergies Active Allergy Reactions Criticality Noted Date Comments Exenatide Hives Medium 05/04/2016 Liraglutide Hives Medium 09/27/2014 documented as of this encounter (statuses as of 10/29/2023) Medications Medication Sig Dispensed Refills Start Date End Date Status ASPIRIN 81 MG PO TABS 1 TABLET DAILY 0 Active Multiple Vitamins-Minerals (MULTI FOR HER 50+) CAPS Take by mouth. 0 Active B Complex-Folic Acid (B COMPLEX FORMULA 1) TABS Take by mouth. 0 Active coenzyme Q-10 100 MG CapsuleIndications: HTN, goal below 140/90,DM type 2 with diabetic [...] Active Rosuvastatin Calcium 5 MG Oral Tablet (Crestor)Indication s:Dyslipidemia, goal LDL below 70 Take 1 Tablet by mouth in the morning. 90 Tablet 3 03/24/2023 Active amLODIPine Besylate 2.5 MG Oral Tablet (Norvasc)Indication s:HTN, goal below 140/90 Take 1 Tablet by mouth in the morning. 90 Tablet 2 04/12/2023 Active Pregabalin 300 MG Oral Capsule (Lyrica)Indications :DM type 2 with diabetic peripheral neuropathy (HCC) Take 1 Capsule by mouth in the morning and 1 Capsule before bedtime. 60 Capsule 5 06/23/2023 Active Tradjenta 5 MG Oral Tablet (linaGLIPtin)Indica tions:Diabetes mellitus with stage 3 chronic kidney disease (HCC) TAKE 1 TABLET BY MOUTH IN THE MORNING 90 Tablet 2 08/02/2023 Active Gemfibrozil 600 MG Oral Tablet (Lopid) TAKE 1 TABLET BY MOUTH TWICE DAILY 30 MINUTES BEFORE THE MORNING AND EVENING MEALS 180 Tablet 1 08/27/2023 Active Levothyroxine Sodium 75 MCG Oral TabletIndications:A cquired hypothyroidism TAKE 1 TABLET BY MOUTH IN [...] THE MORNING 90 Tablet 2 10/15/2023 Active Lisinopril-hydroCHL OROthiazide 20-25 MG Oral TabletIndications:H TN, goal below 140/90 Take 1 Tablet by mouth in the morning. 100 Tablet 1 10/15/2023 Active Lisinopril-hydroCHL OROthiazide 20-25 MG Oral TabletIndications:H TN, goal below 140/90 Take 1 Tablet by mouth in the morning and 1 Tablet before bedtime. 180 Tablet 1 04/12/2023 Discontinue d(Refill) documented as of this encounter (statuses as of 10/29/2023) Active Problems Problem Noted Date Diagnosed Date [...] as of this encounter (statuses as of 10/29/2023) Resolved Problems Problem Noted Date Diagnosed Date [...] as of this encounter (statuses as of 10/29/2023) Immunizations Name Administration Dates Next Due COVID-19 [...] Sign Reading Time Taken Comments Blood Pressure 144/66 10/15/2023 1:20 PM EST Pulse 48 10/15/2023 1:20 PM EST Temperature - - Respiratory Rate 16 10/15/2023 1:20 PM EST Oxygen Saturation - - Inhaled Oxygen Concentration - - Weight 84.8 kg (187 lb) 10/15/2023 1:20 PM EST Height - - Body Mass Index 32.35 03/08/2023 2:25 PM EDT documented in this encounter Progress Notes * Deirdre Mares PA-C - 10/15/2023 1:27 PM EST Cardiology F/U: Chief Complaint: Follow-up hyperlipidemia, dyslipidemia; right bundle-branch block, SUBJECTIVE: Rosalind Morrison is a 78 year old female who presents today for routine cardiology follow-up. Last clinic evaluation approximately 6 months ago with the undersigned History includes: 1. 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 Low HDL dyslipidemia with elevated triglycerides on combination medical therapies 3. Prior statin tolerance with simvastatin and atorvastatin, tolerating Crestor. 4. Hypertension 5. Familial history of coronary artery disease 6. Chronic right bundle-branch block 7. Sinus bradycardia Patient presents today feeling well. Denies acute cardiac complaints. Taking meds as prescribed. BP borderline elevated today. Typically controlled at home. Last visit patient underwent outpatient ZIO given sinus bradycardia and Underlying conduction system disease. ZIO demonstrated no significant symptomatic bradycardic events or pauses. She denies recent symptoms of dizziness. No chest pain, shortness of breath, palpitations, dizziness, syncope or near syncope. No orthopnea,PND, or increased lower extremity edema. No fever, chills, cough, hematochezia, melena, or hemoptysis. Review of Systems: See HPI for pertinent positives. All others negative, other than those noted in HPI. Patient Active Problem List Diagnosis Code Metabolic syndrome E88.810 ADVANCE DIRECTIVE INFORMATION Hypothyroidism due to acquired atrophy of thyroid E03.4 Dyslipidemia, goal LDL below 70 E78.5 Chronic sinusitis J32.9 HTN, goal below 140/90 I10 DM type 2 with diabetic peripheral neuropathy (HCC) E11.42 Diabetes mellitus with stage 3 chronic kidney disease (HCC) E11.22, N18.30 Social History Tobacco Use Smoking status: Never Passive exposure: Never Smokeless tobacco: Never Vaping Use Vaping Use: Never used Substance Use Topics Alcohol use: No Drug use: No Review of patient's allergies indicates: Allergen Reactions Byetta [Exenatide] Hives Victoza [Liraglutide] Hives Current Outpatient Medications Medication Sig Dispense Refill [...] mouth in the morning. 90 Tablet 2 Lisinopril-hydroCHLOROthiazide 20-25 MG Oral Tablet Take 1 Tablet by mouth in the morning and 1 Tablet before bedtime. 180 Tablet 1 Pregabalin 300 MG Oral Capsule (Lyrica) Take [...] MOUTH IN THE MORNING 90 Tablet 2 QR PharmaTouch Ultra Control In Vitro Solution Use as directed. 1 Each 0 OneTouch UltraSoft Lancets Use up to four times a day as directed ( delica) 250.00 100 Each 10 OneTouch Ultra In Vitro Strip (Glucose Blood) USE STRIP TO CHECK GLUCOSE 4 TIMES DAILY 400 Strip 1 No current facility-administered medications for this visit. Past Surgical History: Procedure Laterality Date COLONOSCOPY, DIAGNOSTIC (RECTUM) 08/29/2013 COLONOSCOPY FLEXIBLE PROXIMAL DIAGNOSTIC performed by Fili Pike MD at ENDOSCOPY [facility] OBJECTIVE/PHYSICAL EXAMINATION: BP 144/66 | Pulse 48 | Resp 16 | Wt 84.8 kg (187 lb) | BMI 32.35 kg/m | BSA 1.95 m On my repeat 150/70 BP Readings from Last 4 Encounters: 10/15/23 144/66 07/21/23 130/56 04/12/23 128/58 03/24/23 138/60 Wt Readings from Last 3 Encounters: 10/15/23 84.8 kg (187 lb) 07/21/23 85.9 kg (189 lb 4.8 oz) 04/12/23 85.8 kg (189 lb 3.2 oz) General: no acute distress and stated age Head: normocephalic, no masses, lesions, tenderness or abnormalities Eyes: conjunctiva are pink and non-injected, sclera clear Throat: clear Nares: without discharge Neck: supple, no adenopathy, no bruits, normal jugular venous pulse, no hepatojugular reflux, no carotid bruits Chest: normal shape and normal respiratory effort Lungs: clear to auscultation and percussion Cardiac Exam: - regular rate & rhythm, grade 1/6 systolic murmur Abdomen: abdomen soft, non-tender, no abnormal masses, no hepatosplenomegaly, no abdominal bruit, no femoral bruit Musculoskeletal: no gait disturbance, no joint inflammation, no deforming arthritis Extremities: no edema, no cyanosis, pulses intact 2+/4 Neuro: grossly normal exam Data: ZIO report reviewed from March 2023: Patient had a min HR of 33 bpm, max HR of 116 bpm, and avg HR of 47 bpm. Predominant underlying rhythm was Sinus Rhythm. First [...] patient marker or diary entries were submitted EKG performed March 2023: Marked sinus bradycardia with 1st degree AV block Left axis deviation Right bundle branch block High QRS voltage may be normal variant or due to lve Abnormal ECG When compared with ECG of 08-NOV-2019 10:33, MD interval has increased The axis Shifted left Nonspecific T wave abnormality now evident in Inferior leads Echocardiogram report reviewed dated September 2022: Interpretation Summary The examination is adequate to evaluate the referral indication. There was sinus bradycardia during the examination. The LV wall thickness is mildly increased (concentric). The left ventricular wall motion is normal. Calculated LV ejection Fraction = 60% (three dimensional volumes). The aortic valve has three leaflets. Mild aortic valve sclerosis is present. Aortic stenosis is absent. Echocardiogram September 06, 2018 Normal LV chamber size with mild concentric LVH, sigmoid appearing septum. Normal LV systolic function without regional wall motion abnormality. Calculated LV ejection Fraction = 58% (bi-plane method of discs). Grade I diastolic dysfunction. Mild aortic valve sclerosis without stenosis Latest Reference Range & Units 04/07/23 08:24 Triglycerides <=174 mg/dL 300 (H) Cholesterol <200 mg/dL 148 Non-HDL Cholesterol <=159 mg/dL 112 HDL Cholesterol >49 mg/dL 36 (L) LDL Cholesterol (Direct Measure) <=129 mg/dL 71 (H): Data is abnormally high (L): Data is abnormally low ASSESSMENT: 78 year old female ICD-10-CM 1. HTN, goal below 140/90 I10 2. Dyslipidemia, goal LDL below 70 E78.5 3. Bradycardia, sinus R00.1 4. RBBB (right bundle branch block) I45.10 PLAN: Stable symptoms. BP borderline elevated. She will monitor BP at home and call if readings are persistently elevated. We reviewed ZIO from last fall. No significant bradycardic events. She remains mildly bradycardic today but is without symptoms. She should report any new or worsening symptoms of dizziness and report to ER for true syncope/nearsyncope. Avoid AV shawn blocking agents. Echo earlier this year with stable findings. Recent labs unremarkable. The patient is to continue all current medications as listed above. No changes were made at today'svisit. Patient is being evaluated in the cardiology office for ongoing care/risk management for HTN; dyslipidemia; sinus bradycardia. I spent a total of 30 minutes on the date of service in preparation, delivery, and documentation ofthe care provided to Rosalind Morrison excluding any time spent in the performance of separately billed services. The patient agrees to the above plan and will call with additional questions or concerns. ER with all emergencies advised. Follow Up: Return in about 6 months (around 04/16/2024). Deirdre Mares PA-C Department of Cardiology This chart was completed in part utilizing [employer] Voice Recognition Software. Grammatical errors, random word insertions, prounoun errors, and incomplete sentences are an occasional consequence of this system due to software limitations, ambient noise, and hardware issues. Any formal questions or concerns about the content, text, or information contained within the body of this dictation should be directly addressed to the provider for clarification. documented in this encounter Nursing Notes * Tank Chavarria RN - 10/15/2023 1:19 PM EST Examination Room: room 1 Name: Rosalind Morrison Date of : (1945). Reason for Visit: for follow up Interim Hospitalization(s): denies Problems/Concerns: denies Chest Pain/SOB: denies [facility] Discussed: Yes [facility] is a way you can talk to your provider online through e-mail. Would you like to sign up? I can activate it for you? ALREADY ACTIVE Patient was instructed to not get up on the exam table until directed and assisted by their provider; patient is to remain seated in the chair/ wheelchair/ exam table for fall prevention and safety reasons. Patient is aware to have assistance to step down off exam table with personnel. Patient voiced full comprehension of instructions. documented in this encounter Plan of Treatment Upcoming Encounters Date Type Department Care Team (Late st Contact Info) Description 11/05/2023 12:45 PM EDT Office Visit Cardiology, [facility] [address] [facility] [place] [id number] Tara Villarreal, [address] [place] [address] 11/08/2023 8:30 AM EDT Laboratory Laboratory, [address] [place] [address] [place], Laboratory [address] [place] [facility] [address] 11/11/2023 8:30 AM EDT Office Visit Family Practice, [place] [address] [facility], [place] [phone] Claire Gabriel, DO [address] [place] [facility] [place] [address] 03/09/2024 2:00 PM EDT Nurse Only Ancillary Department, [place] [address] [facility] [facility] [address] [place], Nurse Annual Wellness [address] [place] [facility] [place] [id number] Scheduled Procedures Name Priority Associated Diagnoses Date/Ti me COLONOSCOPY FLEXIBLE PROXIMA L DIAGNOSTIC Recall Benign neoplasm of colon Health Maintenance Due Date Last Done Comments DTaP,Tdap,and Td Vaccines (2 - Td or Tdap) 07/28/2020 07/28/2010, 06/06/1999 Albumin/Creatinine Ratio 09/17/2023 023, 10/13/2021, 11/06/2019, Additional history exists CKD HGB USE SMARTSET 43496 09/17/202309/17, 09/04/2021, 04/09/2021, Additional history exists CKD PHOS USE SMARTSET 06933 09/17/2023 02/0 09/2022, 12/13/2020, 03/31/2018, Additional history exists Diabetic Foot Exam 09/17/2023 09/17/2022, 0 09/03/2021, 11/20/2020, Additional history exists DXA Scan 11/10/2023 11/09/2016 TSH 12/24/2023 12/23/2022, 02/0 09/2022, 08/26/2021, Additional history exists GFR 01/20/2024 07/21/2023, 03/17, 12/23/2022, Additional history exists HbA1c 01/20/2024 07/21/2023, 03/17, 12/23/2022, Additional history exists Depression Screening 03/08/2024 03/08/2023 Diabetic Eye Exam 10/01/2024 10/01/2023 (Do ne elsewhere), 10/01/2023, 10/01/2022, Additional history exists Colonoscopy Discontinued 08/29/2013, 08/29/2013 [...] as of this encounter Visit Diagnoses Diagnosis HTN, goal below 140/90- Primary Unspecified essential hypertension Dyslipidemia, goal LDL below 70 Other and unspecified hyperlipidemia Bradycardia, sinus Other specified cardiac dysrhythmias RBBB (right bundle branch block) Right bundle branch block documented in this encounter Care Teams Supervisor Pressing Department Relationship Specialty Start Date End Date Claire Gabriel DO [address] [place] [address] PCP - General Family Medicine 11/06/19 documented as of this encounter"
--- OUTSIDE RECORDS SUMMARY | 2023-12-01 04:08 | External Medical Summary ---
Author Name Unknown Address Unknown Organization [id number]:LAB[facility]ATORY [facility] [place] [address] [place] [address] Laboratory Report Ordering Provider Test Date Status TAQUERIA VEGA 11/11/2023 09:28:29 Final Observation Date Value Abnormality Reference (Units ) Status TSH 11/11/2023 09:28:29 1.22 0.27-4.20 (uIU/mL) Final Performing Location LABORATORY [facility] - [address] [place] [address]
--- OUTSIDE RECORDS SUMMARY | 2023-12-01 04:08 | External Medical Summary ---
Author Name Unknown Address Unknown Organization [id number]:LABORATORY [facility] [place] - [address] [facility] [address] Laboratory Report Ordering Provider Test Date Status GARYKHLOESHAYY 11/11/2023 09:28:29 Final Observation Date Value Abnormality Reference (Units ) Status HbA1C 11/11/2023 09:28:29 7.1 Above high normal 4. 0-5.6 (%) Final The use of HbA1c to monitor glycemic status is based on normal hemoglobin and HbA composition. This test should not be used in patients with abnormal hemoglobin that affects the half life of the red blood cell or the in vivo glycation rates. Glucose, estimated average 11/11/2023 09:28:29 157 Above high normal <126 (mg/dL) Aldo al Performing Location LABORATORY [facility] [place] - [address] [facility] [address]
--- OUTSIDE RECORDS SUMMARY | 2023-12-01 04:08 | External Medical Summary | Summary of Care ---
Author Name Unknown Organization [facility] Address [address] [place] [address] Phone [phone] Care Team Providers Care Quality Consultant Name Role Phone Claire Gabriel DO Primary Care Provider Reason for Visit * Reason Onset Date Comments Order Request 10/26/2023 Glucose monitor Encounter Details Date Type Department Care Team (Late st Contact Info) Description 10/26/2023 Telephone [facility] [address] [place] [address] Claire Gabriel DO [address] [place] [address] Order Request (Glucose monitor) Allergies Active Allergy Reactions Criticality Noted Date Comments Exenatide Hives Medium 05/04/2016 Liraglutide Hives Medium 09/27/2014 documented as of this encounter (statuses as of 10/28/2023) Medications Medication Sig Dispensed Refills Start Date [...] as of this encounter (statuses as of 10/28/2023) Active Problems Problem Noted Date Diagnosed Date Diabetes mellitus with stage 3 chronic kidney [...] as of this encounter (statuses as of 10/28/2023) Resolved Problems Problem Noted Date Diagnosed Date [...] as of this encounter (statuses as of 10/28/2023) Immunizations Name Administration Dates Next Due COVID-19 [...] encounter Miscellaneous Notes * Telephone Encounter - Iman Delgadillo LPN - 10/28/2023 10:14 AM EDT Order sent to [facility] via fax * Telephone Encounter - Claire Gabriel DO - 10/27/2023 2:11 PM EDT Cannot find Rx, but ordered DME * Telephone Encounter - Hugh Vera OSA - 10/26/2023 9:54 AM EDT An order was requested for this patient. Name of Requesting Provider: Rosalind (patient Order Requested: one touch ultra glucomenter Diagnosis/Reason for Request: Diabetes If order request is for Mammogram: Is the patient having any breast symptoms? N/A Is there a chance of ? N/A Has the patient had any breast problems in the past? NA What location AND department does the patient wish to have their order completed at? Please sent [facility] at [facility]. Fax Number, if applicable: If the caller is not a current patient, please advise the patient to call their current PCP to havethe order's prior to being seen in our office. The patient was informed that our providers would not order anything (medication, labs, etc.) prior to being seen. documented in this encounter Plan of Treatment Upcoming Encounters Date Type Department Care Team (Late st Contact Info) Description 11/05/2023 12:45 PM EDT Office Visit Cardiology, [facility] [address] [facility] [place] [address] Tara Villarreal DO [address] [facility] [place] [address] 11/08/2023 8:30 AM EDT Laboratory Laboratory, [place] [address] [place] [phone] [place], Laboratory [address] [place] [address] 11/11/2023 8:30 AM EDT [facility] [address] [facility] [phone] Claire Gabriel DO [address] [place] [address] 03/09/2024 2:00 PM EDT Nurse Only Ancillary Department, [place] [address] [facility] [place] [address] [place], Nurse Annual Wellness [address] [address] Scheduled Procedures Name Priority Associated Diagnoses Date/Ti me COLONOSCOPY FLEXIBLE PROXIMA L DIAGNOSTIC Recall Benign neoplasm of colon Health Maintenance Due Date Last Done Comments DTaP,Tdap,and Td Vaccines (2 - Td or Tdap) 07/28/2020 07/28/2010, 06/06/1999 Albumin/Creatinine Ratio 09/17/2023 023, 10/13/2021, 11/06/2019, Additional history exists CKD HGB USE SMARTSET 74784 09/17/202309/17, 09/04/2021, 04/09/2021, Additional history exists CKD PHOS USE SMARTSET 22447 09/17/20230 09/2022, 12/13/2020, 03/31/2018, Additional history exists Diabetic Foot Exam 09/17/2023 09/17/2022, 0 09/03/2021, 11/20/2020, Additional history exists DXA Scan 11/10/2023 11/09/2016 TSH 12/24/2023 12/23/2022, 0209/2022, 08/26/2021, Additional history exists GFR 01/20/2024 07/21/2023, [...] as of this encounter Visit Diagnoses Diagnosis DM type 2 with diabetic peripheral neuropathy (HCC)- Primary Type II or unspecified type diabetes mellitus with neurological manifestations, not stated as uncontrolled documented in this encounter Care Teams Quality Consultant Relationship Specialty Start Date End Date Claire Gabriel DO [address] [place] [address] PCP - General Family Medicine 11/06/19 documented as of this encounter
--- OUTSIDE RECORDS SUMMARY | 2023-12-01 04:08 | External Medical Summary ---
Author Name Unknown Address Unknown Organization K01:LABORATORY [facility] [place] - [address] [place] [address] Laboratory Report Ordering Provider Test Date Status KRZYSZTOF ZEPEDA 11/08/2023 08:27:41 Final Observation Date Value Abnormality Reference (Units ) Status MYCODE SPECIMEN-SST 11/08/2023 08:27:41 Freezing of extracted DNA, whole blood and/or serum. Final Performing Location LABORATORY [facility] [place] - [address] [place] [address]
--- OUTSIDE RECORDS SUMMARY | 2023-12-01 04:08 | External Medical Summary ---
Author Name Unknown Address Unknown Organization [id number]:[place] [place] [address] [place] [address] Laboratory Report Ordering Provider Test Date Status TAQUERIA VEGA 11/11/2023 09:28:29 Final Observation Date Value Abnormality Reference (Units ) Status LDL, (direct) 11/11/2023 09:28:29 75 <=129 (mg/dL) Final LDL Cholesterol Reference Ra nges (mg/dL):
<70 Target level for high risk ASCVD patient
<100 Optimal for general population
100-129 Near optimal for general population
130-159 Borderline high
160-189 High
>=190 Very high Performing Location LABORATORY [facility] - [address] [place] [address]
--- OUTSIDE RECORDS SUMMARY | 2023-12-01 04:08 | External Medical Summary ---
Author Name Unknown Address Unknown Organization [id number]:LABORATORY [facility] [place] - [address] [place] [address] Laboratory Report Ordering Provider Test Date Status MARGOT VEGADaphne 11/08/2023 08:27:41 Final Normal: <30 mg/g creatinine< br/>High: 30-300 mg/g creatinine
Very High: >300 mg/g creatinine
Nephrotic: >2200 mg/g creatinine Observation Date Value Abnormality Reference (Units ) Status Albumin, Urine 11/08/2023 08:27:41 <1.20 (mg/dL) Final Creatinine, Urine 11/08/2023 08:27:41 72 (mg/dL) Final Albumin/Creatinine [Mass Ratio] in Urine 11/08/2023 08:27:41 <17 <30 (mg/g Creat) Final Performing Location LABORATORY [facility] [place] - [address] [place] [address]
--- OUTSIDE RECORDS SUMMARY | 2023-12-01 04:08 | External Medical Summary | Summary of Care ---
Author Name Unknown Organization [facility] Address [address] [place] [address] Phone [phone] Care Team Providers Care Food Demonstrator Name Role Phone Bartolomecarey Claire Murphy LIU Primary Care Provider + [phone] Reason for Visit * Reason Comments Outpatient Testing Encounter Details Date Type Department Care Team (Late st Contact Info) Description 11/11/2023 9:30 AM EDT Laboratory Laboratory, [place] [address] [place] [address] [place], Laboratory [address] [place] [address] Diabetes mellitus with stage 3 chronic kidney disease (HCC); HTN, goal below 140/90; Dyslipidemia, goal LDL below 70; Hypothyroidism due to acquired atrophy of thyroid Allergies Active Allergy Reactions Criticality Noted Date [...] 2:00 PM EDT Nurse Only [facility]illary Department, [place] [address] [facility] [id number] [place] [facility] [address] [facility] [place] [phone] 05/19/2024 9:50 AM EDT Office Visit Family Practice, [place] [address] [facility] [place] [address] Claire Gabriel, DO [address] [place] [address] Pending Results Name Type Priority Associated Diagnoses [...] of thyroid 11/11/2023 9:28 AM EDT Scheduled Procedures Name Priority Associated Diagnoses Date/Ti [...] Additional history exists CKD HGB USE SMARTSET 45666 11/07/202411/07, 09/17/2022, 09/04/2021, Additional history exists CKD PHOS USE SMARTSET 85872 11/07/202410/15, 09/17/2022, 12/13/2020, Additional history exists Colonoscopy [...] with stage 3 chronic kidney disease (HCC) Type II or unspecified type diabetes mellitus with renal manifestations, not stated as uncontrolled HTN, goal below 140/90 Unspecified essential hypertension Dyslipidemia, goal LDL below 70 Other and unspecified hyperlipidemia Hypothyroidism due to acquired atrophy of thyroid documented in this encounter Care Teams Food Demonstrator Relationship Specialty Start Date End Date Claire Gabriel DO [address] [place] [address] PCP - General Family Medicine 11/06/19 documented as of this encounter
--- OUTSIDE RECORDS SUMMARY | 2023-12-01 04:08 | External Medical Summary | Summary of Care ---
Author Name Unknown Organization [facility] Address [address] [place] [address] Phone [phone] Care Team Providers Care Drafter Apprentice Name Role Phone Claire Gabriel DO Primary Care Provider Reason for Visit * Reason Comments Consultation Rm 11 * Evaluate & Treat - Unlimited Visits (Within 10 days (routine)) - Authorized Specialty Diagnoses / Procedures Referred By Contact Referred To Contact Cardiac Electrophysiology / Cardiology Diagnoses Bradycardia Claire Gabriel DO [address] [place] [address] Tara Villarreal DO [address] [place] [address] Referral ID Status Reason Start Date Expiration Date Visits Requested Visits Authorized [id number] Authorized Specialty Services Required 07/21/[phone] Encounter Details Date Type Department Care Team (Late st Contact Info) Description 11/05/2023 12:45 PM EDT Office Visit Cardiology, [facility] [address] [place] [address] Tara Villarreal DO [address] [place] [address] Bradycardia, sinus*; RBBB (right bundle branch block); HTN, goal below 140/90; Dyslipidemia, goal LDL below 70 Allergies Active Allergy Reactions Criticality Noted Date Comments Exenatide Hives Medium 05/04/2016 Liraglutide Hives Medium 09/27/2014 documented as of this encounter (statuses as of 11/05/2023) Medications Medication Sig Dispensed Refills Start Date [...] as of this encounter (statuses as of 11/05/2023) Active Problems Problem Noted Date Diagnosed Date [...] as of this encounter (statuses as of 11/05/2023) Resolved Problems Problem Noted Date Diagnosed Date [...] as of this encounter (statuses as of 11/05/2023) Immunizations Name Administration Dates Next Due COVID-19 [...] are ready to schedule the pacemaker at [facility] typically on a Wednesday all day and [...] HPI: Pt's just had surgery up in [facility] and then had hydrocodone for some time [...] mouth in the morning. 100 Tablet 1 OneTouch Ultra Control In Vitro Solution Use [...] by Fili Pike MD at ENDOSCOPY [facility] Review of patient's allergies indicates: Allergen Reactions Byetta [Exenatide] Hives Victoza [Liraglutide] Hives Family History Problem Relation Age of Onset Hypertension Mother Cancer Mother pancreatic, indolent type Heart Disorder Father 55 massive [place] Hypertension Sister Heart Disorder Brother 53 CABG [...] the [facility]She will call us or send a [...] Tara Villarreal DO documented in this encounter Nursing Notes * Rhona Francois NRCMA - 11/05/2023 1:03 PM EDT Patient was identified by name and date of . Examination Room: 11 Name: Rosalind Morrison Date of : (1945). Reason for Visit: NEW PT Interim Hospitalization(s): no Problems/Concerns: bradycardia Chest Pain/SOB: no Medications reviewed and are up to date via: [employer] [facility] is a way you can talk to [...] Miscellaneous Notes * Addendum Note - Joan Hernandze COT - 11/05/2023 2:47 PM EDTAddended by: JOAN HERNANDEZ on: 11/05/2023 02:47 PM Modules accepted: Orders documented in this encounter Plan of Treatment Upcoming Encounters Date Type Department Care Team (Late st Contact Info) Description 11/08/2023 8:30 AM EDT Laboratory Laboratory, [place] [address] [place] [facility] [place] [phone] [place], Laboratory [address] [place] [address] 11/11/2023 8:30 AM EDT Office Visit [facility], [place] [address] [place] [facility] [place] [phone] Claire Gabriel DO [address] [place], [place] [phone] 03/09/2024 2:00 PM EDT Nurse Only Ancillary Department, [place] [address] [facility] [address] Eduarda Nurse Annual [facility] [address] [facility] [place] [address] Scheduled Orders Name Type Priority Associated Diagnoses Orde r Schedule EKG EKG Routine Bradycardia, sinus RBBB (right bundle branch block) Ordered: 11/05/2023 Scheduled Procedures Name Priority Associated Diagnoses Date/Ti me COLONOSCOPY FLEXIBLE PROXIMA L DIAGNOSTIC Recall Benign neoplasm of colon Health Maintenance Due Date Last Done Comments DTaP,Tdap,and Td Vaccines (2 - Td or Tdap) 07/28/2020 07/28/2010, 06/06/1999 Albumin/Creatinine Ratio 09/17/2023 023, 10/13/2021, 11/06/2019, Additional history exists CKD HGB USE SMARTSET 70044 09/17/202309/17, 09/04/2021, 04/09/2021, Additional history exists CKD PHOS USE SMARTSET 85680 09/17/2023 020 09/2022, 12/13/2020, 03/31/2018, Additional history exists Diabetic Foot Exam 09/17/2023 09/17/2022, 0 09/03/2021, 11/20/2020, Additional history exists DXA Scan 11/10/2023 11/09/2016 TSH 12/24/2023 12/23/2022, 020 09/2022, 08/26/2021, Additional history exists GFR 01/20/2024 [...] hyperlipidemia documented in this encounter Care Teams Drafter Apprentice Relationship Specialty Start Date End Date Claire Gabriel DO [address] [place] [address] PCP - General Family Medicine 11/06/19 documented as of this encounter
--- OUTSIDE RECORDS SUMMARY | 2023-12-01 04:08 | External Medical Summary | Summary of Care ---
Author Name Unknown Organization [facility] Address [address] [place] [address] Phone [phone] Care Team Providers Care Pediatric Urologist Name Role Phone Bartolomecarey Claire Murphy LIU Primary Care Provider + [phone] Reason for Visit * Reason Comments Outpatient Testing Encounter Details Date Type Department Care Team (Late st Contact Info) Description 11/08/2023 8:30 AM EDT Laboratory Laboratory, [place] [address] [place] [address] [place], Laboratory [address] [place] [address] [employer] Other*[id number]; Chronic kidney disease, unspecified CKD stage Allergies Active Allergy Reactions Criticality Noted Date Comments Exenatide Hives Medium 05/04/2016 Liraglutide Hives Medium 09/27/2014 documented as of this encounter (statuses as of 11/08/2023) Medications Medication Sig Dispensed Refills Start Date [...] as of this encounter (statuses as of 11/08/2023) Active Problems Problem Noted Date Diagnosed Date [...] as of this encounter (statuses as of 11/08/2023) Resolved Problems Problem Noted Date Diagnosed Date Resolved Date DM type 2 causing CKD stage 3 06/14/2018 06/14/2018 Kidney disease, chronic, sta ge III (GFR 30-59 ml/min) 11/23/2017 06/14/2018 Overview: Per CKD protocol #1 Actinic keratosis 06/29/2013 05/04/2017 Other seborrheic keratosis 06/29/2013 0 05/04/2017 Ruyb angioma 06/29/2013 05/04/2017 HTN, GOAL BELOW 140/80 [...] as of this encounter (statuses as of 11/08/2023) Immunizations Name Administration Dates Next Due COVID-19 [...] Influenza, Split, I IV3, With Preserve, Inj 06/07/2014,06/20/2013,06/30/2012,05/16,05/16/2010,07/09/2009,05/16/20,05/16/2006 06/07/2015 Seasonal Influenza, Trivalen t, Adjuvanted, 65+ [...] Description 11/11/2023 8:30 AM EDT Office Visit [facility], [place] [address] [facility] [phone] Claire Gabriel DO [address] [facility] [place] [address] 03/09/2024 2:00 PM EDT Nurse Only Ancillary Department, [place] [address] [facility] [place] [address] [place], Nurse [facility] [address] [facility] [place] [address] Pending Results Name Type Priority Associated Diagnoses Date /Time MYCODE SUBSEQUENT ADULT Lab Routine [employer] Other*[id number] 11/08/2023 8:27 AM EDT CBC Lab Routine Chronic kidney disease, unspecified CKD stage 11/08/2023 8:27 AM EDT PHOSPHORUS Lab Routine Chronic kidney disease, unspecified CKD stage 11/08/2023 8:27 AM EDT ALBUMIN / CREATININE RATIO, URINE Lab Routine Chronic kidney disease, unspecified CKD stage 11/08/2023 8:27 AM EDT MYCODE SST1 Lab Routine [employer] Other*[id number] 11/08/2023 8:27 AM EDT MYCODE SST2 Lab Routine [employer] Other*[id number] 11/08/2023 8:27 AM EDT Scheduled Procedures Name Priority Associated Diagnoses Date/Ti me COLONOSCOPY FLEXIBLE PROXIMA L DIAGNOSTIC Recall Benign neoplasm of colon Health Maintenance Due Date Last Done Comments DTaP,Tdap,and Td Vaccines (2 - Td or Tdap) 07/28/2020 07/28/2010, 06/06/1999 Albumin/Creatinine Ratio 09/17/2023 023, 10/13/2021, 11/06/2019, Additional history exists CKD HGB USE SMARTSET 70400 09/17/202309/17, 09/04/2021, 04/09/2021, Additional history exists CKD PHOS USE SMARTSET 25150 09/17/202309/2022, 12/13/2020, 03/31/2018, Additional history exists Diabetic Foot Exam 09/17/2023 09/17/2022, 0 09/03/2021, 11/20/2020, Additional history exists DXA Scan 11/10/2023 11/09/2016 TSH 12/24/2023 12/23/2022, 09/2022, 08/26/2021, Additional history exists GFR 01/20/2024 [...] as of this encounter Visit Diagnoses Diagnosis [employer] Other*[id number] Chronic kidney disease, unspecified CKD stage documented in this encounter Care Teams Pediatric Urologist Relationship Specialty Start Date End Date Claire Gabriel DO [address] [place] [address] PCP - General Family Medicine 11/06/19 documented as of this encounter
--- OUTSIDE RECORDS SUMMARY | 2023-12-01 04:08 | External Medical Summary ---
Author Name Unknown Address Unknown Organization K01:[facility] [place] [address] [place] [address] Laboratory Report Ordering Provider Test Date Status [id number] ZEPEDA 11/08/2023 08:27:41 Final Observation Date Value Abnormality Reference (Units ) Status MYCODE SPECIMEN-SST 11/08/2023 08:27:41 Freezing of extracted DNA, whole blood and/or serum. Final Performing Location [facility] - [address] [place] [address]
--- OUTSIDE RECORDS SUMMARY | 2023-12-01 04:08 | External Medical Summary | Summary of Care ---
Author Name Unknown Organization [facility] Address [address] [place] [address] Phone [phone] Care Team Providers Care Ophthalmic Tech Name Role Phone Claire Gabriel DO Primary Care Provider Reason for Visit * Reason Comments Consultation Rm 11 * Evaluate & Treat - Unlimited Visits (Within 10 days (routine)) - Authorized Specialty Diagnoses / Procedures Referred By Contact Referred To Contact Cardiac Electrophysiology / Cardiology Diagnoses Bradycardia Claire Gabriel DO [address] [place] [address] Tara Villarreal DO [address] [place] [address] Referral ID Status Reason Start Date Expiration Date Visits Requested Visits Authorized [id number] Authorized Specialty Services Required 07/21/[phone] Encounter Details Date Type Department Care Team (Late st Contact Info) Description 11/05/2023 12:45 PM EDT Office Visit Cardiology, [facility] [address] [facility] [place] [address] Tara Villarreal DO [address] [place] [address] Bradycardia, sinus*; RBBB (right [...] are ready to schedule the pacemaker at [facility] typically on a Wednesday all day and [...] HPI: Pt's just had surgery up in [facility] and then had hydrocodone for some time [...] performed by Fili Pike MD at ENDOSCOPY [facility] Review of patient's allergies indicates: Allergen Reactions Byetta [Exenatide] Hives Victoza [Liraglutide] Hives Family History Problem Relation Age of Onset Hypertension Mother Cancer Mother pancreatic, indolent type Heart Disorder Father 55 massive [place] Hypertension Sister Heart Disorder Brother 53 CABG [...] the [facility] will call us or send a [...] reviewed and are up to date via: [employer] is a way you can talk to [...] instructions. VIRGIE Khan documented in this encounter Plan of Treatment Upcoming Encounters Date Type Department Care Team (Late st Contact Info) Description 11/08/2023 8:30 AM EDT Laboratory Laboratory, [address] [phone] [facility] [address] [place] [address] 11/11/2023 8:30 AM EDT Office Visit [facility], [place] [address] [place] [address] Claire Gabriel, DO [address] [place] [address] 03/09/2024 2:00 PM EDT Nurse Only Ancillary Department, [place] [address] [place] [address] [place], Nurse [facility] [address] [place] [address] Scheduled Procedures Name Priority Associated Diagnoses Date/Ti me COLONOSCOPY FLEXIBLE PROXIMA L DIAGNOSTIC Recall Benign neoplasm of colon Scheduled Referrals Name Type Priority Associated Diagnoses Order Schedule ELECTROPHYSIOLOGY REFERRAL OP Referral Within 10 days (routine) Bradycardia Ordered: 07/21/2023 Health Maintenance Due Date Last Done Comments DTaP,Tdap,and Td Vaccines (2 - Td or Tdap) 07/28/2020 07/28/2010, 06/06/1999 Albumin/Creatinine Ratio 09/17/2023 023, 10/13/2021, 11/06/2019, Additional history exists CKD HGB USE SMARTSET 07415 09/17/202309/17, 09/04/2021, 04/09/2021, Additional history exists CKD PHOS USE SMARTSET 84418 09/17/2023 02/0 09/2022, 12/13/2020, 03/31/2018, Additional history [...] hyperlipidemia documented in this encounter Care Teams Ophthalmic Tech Relationship Specialty Start Date End Date Claire Gabriel DO [address] [place] [facility] [place] [address] PCP - General Family Medicine 11/06/19 documented as of this encounter
--- OUTSIDE RECORDS SUMMARY | 2023-12-01 04:09 | External Medical Summary | Summary of Care ---
Author Name Unknown Organization [facility] Address [address] [place] [address] Phone [phone] Care Team Providers Care Pediatric Immunologist Name Role Phone Claire Gabriel DO Primary Care Provider Encounter Details Date Type Department Care Team (Late st Contact Info) Description 10/19/2023 Orders Only [facility] [address] [place] [address] Claire Gabriel DO [address] [place] [address] Allergies Active Allergy Reactions Criticality Noted Date Comments Exenatide Hives Medium 05/04/2016 Liraglutide Hives Medium 09/27/2014 documented as of this encounter (statuses as of 10/19/2023) Medications Medication Sig Dispensed Refills Start Date [...] as of this encounter (statuses as of 10/19/2023) Active Problems Problem Noted Date Diagnosed Date [...] as of this encounter (statuses as of 10/19/2023) Resolved Problems Problem Noted Date Diagnosed Date [...] as of this encounter (statuses as of 10/19/2023) Immunizations Name Administration Dates Next Due COVID-19 [...] 11/05/2023 12:45 PM EDT Office Visit Cardiology, [address] [place] [address] [address] [place] [address] 11/08/2023 8:30 AM EDT Laboratory Laboratory, [place] [address] [facility] [place] [phone] [place], [facility] [address] [facility] [place] [address] 11/11/2023 8:30 AM EDT Office Visit [facility] Practice, [place] [facility] [phone] Claire Gabriel, DO [address] [facility] [address] 03/09/2024 2:00 PM EDT Nurse Only Ancillary Department, [place] [address] [facility] [address] [place], Nurse [facility] [address] [facility] [address] Scheduled Procedures Name Priority Associated Diagnoses Date/Ti me COLONOSCOPY FLEXIBLE PROXIMA L DIAGNOSTIC Recall Benign neoplasm of colon Health Maintenance Due Date Last Done Comments DTaP,Tdap,and Td Vaccines (2 - Td or Tdap) 07/28/2020 07/28/2010, 06/06/1999 Albumin/Creatinine Ratio 09/17/2023 023, 10/13/2021, 11/06/2019, Additional history exists CKD HGB USE SMARTSET 22597 09/17/202309/17, 09/04/2021, 04/09/2021, Additional history exists CKD PHOS USE SMARTSET 93931 09/17/202309/2022, 12/13/2020, 03/31/2018, Additional history exists Diabetic Foot Exam 09/17/2023 09/17/2022, 0 09/03/2021, 11/20/2020, Additional history exists DXA Scan 11/10/2023 11/09/2016 TSH 12/24/2023 12/23/2022, 0209/2022, 08/26/2021, Additional history exists GFR 01/20/2024 07/21/2023, 03/17, 12/23/2022, Additional history exists HbA1c 01/20/2024 07/21/2023, 03/17, 12/23/2022, Additional history exists Depression Screening 03/08/2024 03/08/2023 Diabetic Eye Exam 10/18/2024 10/01/2023, (Done elsewhere), 10/01/2022, Additional history exists Colonoscopy Discontinued 08/29/2013, [...] Procedure Name Priority Date/Time Associated Diagnosis Comments DIABETIC EYE EXAM Routine 10/01/2023 documented in this encounter Results * DIABETIC EYE EXAM (10/01/2023) 10/01/2023 History Per Patient OTHER OUTSIDE LAB (SEE SCANNED REPORT) documented in this encounter Care Teams Pediatric Immunologist Relationship Specialty Start Date End Date Claire Gabriel DO [address] [place] [address] PCP - General Family Medicine 11/06/19 documented as of this encounter
--- OUTSIDE RECORDS SUMMARY | 2023-12-01 04:09 | External Medical Summary | Summary of Care ---
Author Name Unknown Organization [facility] Address [address] [place] [address] Phone [phone] Care Team Providers Care Silo Painter Name Role Phone Gary Meng DO Primary Care Provider Reason for Visit * Reason Comments eRx-Medication Refill Encounter Details Date Type Department Care Team (Late st Contact Info) Description 10/14/2023 Refill [facility] [address] [place] [address] Gary Meng DO [address] [place] [address] DM type 2 with diabetic peripheral neuropathy (HCC) Allergies Active Allergy Reactions Criticality Noted Date Comments Exenatide Hives Medium 05/04/2016 Liraglutide Hives Medium 09/27/2014 documented as of this encounter (statuses as of 10/15/2023) Medications Medication Sig Dispensed Refills Start Date End Date Status ASPIRIN 81 MG PO TABS 1 TABLET DAILY 0 Active Multiple Vitamins-Minerals (MULTI FOR HER 50+) CAPS Take by mouth. 0 Active B Complex-Folic Acid (B COMPLEX FORMULA 1) TABS Take by mouth. 0 Activ e coenzyme Q-10 100 MG CapsuleIndications: HTN, goal below 140/90,DM type 2 with diabetic peripheral neuropathy (HCC),Dyslipidemia, goal LDL below 100 Take 1 Capsule by mouth in the morning. Patient states she is taking 200 mg daily. 0 8 Active Biotin 10 MG Oral Tablet Take by mouth 2 Tablets . 0 Active OneTouch Ultra Control In Vitro Solution Use as directed. 1 Each 0 3 Active OneTouch UltraSoft Lancets Use up to four times a day as directed ( delica) 250.00 100 Each 10 3 Active Icosapent Ethyl 1 GM Oral Capsule (Vascepa) TAKE 2 CAPSULES BY MOUTH WITH BREAKFAST AND 2 WITH EVENING MEAL DO NOT CUT, CRUSH, OR CHEW 120 Capsule 11 3 Active Rosuvastatin Calcium 5 MG Oral Tablet (Crestor)Indication s:Dyslipidemia, goal LDL below 70 Take 1 Tablet by mouth in the morning. 90 Tablet 3 3 Active amLODIPine Besylate 2.5 MG Oral Tablet (Norvasc)Indication s:HTN, goal below 140/90 Take 1 Tablet by mouth in the morning. 90 Tablet 2 3 Active Lisinopril-hydroCHL OROthiazide 20-25 MG Oral TabletIndications:H TN, goal below 140/90 Take 1 Tablet by mouth in the morning and 1 Tablet before bedtime. 180 Tablet 1 3 Active Pregabalin 300 MG Oral Capsule (Lyrica)Indications :DM type 2 with diabetic peripheral neuropathy (HCC) Take 1 Capsule by mouth in the morning and 1 Capsule before bedtime. 60 Capsule 5 3 Active Tradjenta 5 MG Oral Tablet (linaGLIPtin)Indica tions:Diabetes mellitus with stage 3 chronic kidney disease (HCC) TAKE 1 TABLET BY MOUTH IN THE MORNING 90 Tablet 2 3 Active Gemfibrozil 600 MG Oral Tablet (Lopid) TAKE 1 TABLET BY MOUTH TWICE DAILY 30 MINUTES BEFORE THE MORNING AND EVENING MEALS 180 Tablet 1 4 Active Levothyroxine Sodium 75 MCG Oral TabletIndications:A cquired hypothyroidism TAKE 1 TABLET BY MOUTH IN THE MORNING AT LEAST 30 MIN PRIOR TO BREAKFAST OR OTHER MEDS 90 Tablet 0 4 Active Empagliflozin 25 MG Oral Tablet (Jardiance) Take 1 Tablet by mouth in the morning. 90 Tablet 1 4 Active OneTouch Ultra In Vitro Strip (Glucose Blood) USE STRIP TO CHECK GLUCOSE 4 TIMES DAILY 400 Strip 1 4 Active glipiZIDE ER 2.5 MG Oral Tablet Extended Release 24 Hour (Glucotrol XL)Indications:DM type 2 with diabetic peripheral neuropathy (HCC) TAKE 1 TABLET BY MOUTH IN THE MORNING 90 Tablet 2 4 Active glipiZIDE ER 2.5 MG Oral Tablet Extended Release 24 Hour (Glucotrol XL)Indications:DM type 2 with diabetic peripheral neuropathy (HCC) Take 1 Tablet by mouth in the morning. 90 Tablet 1 3 10/15/19 24 Discontinued documented as of this encounter (statuses as of 10/15/2023) Active Problems Problem Noted Date Diagnosed Date [...] as of this encounter (statuses as of 10/15/2023) Resolved Problems Problem Noted Date Diagnosed Date [...] as of this encounter (statuses as of 10/15/2023) Immunizations Name Administration Dates Next Due COVID-19 [...] encounter Miscellaneous Notes * Telephone Encounter - Bianca Gallo, [facility] - 10/15/2023 10:11 AM ESTSigned Prescriptions: Disp Refills glipiZIDE ER 2.5 MG Oral Tablet Extended R*90 Tab*2 Sig: TAKE 1 TABLET BY MOUTH IN THE MORNINGAuthorizing Provider: GARY MENG User: BIANCA GALLO documented in this encounter Plan of Treatment Upcoming Encounters Date Type Department Care Team (Late st Contact Info) Description 10/15/2023 1:30 PM EST Office Visit Cardiology, [facility] 132 [facility] [place] [address] Deirdre Mares PA-C 132 [facility] [place] [address] 11/05/2023 12:45 PM EDT Office Visit Cardiology, [facility] 132 [facility] [place] [address] Tara Villarreal, [address] [place] [address] 11/08/2023 8:30 AM EDT Laboratory Laboratory, [place] [address] [facility], [place] [phone] [facility] [address] [place] [facility] [address] 11/11/2023 8:30 AM EDT Office Visit Family [facility], [place] [address] [facility], [place] [address] Gary Meng, DO [address] [place] [facility] [address] 03/09/2024 2:00 PM EDT Nurse Only Ancillary Department, [place] [address] [facility], [place] [address] [place], Nurse Annual Wellness [address] [facility], [place] [address] Scheduled Procedures Name Priority Associated Diagnoses Date/Ti me COLONOSCOPY FLEXIBLE PROXIMA L DIAGNOSTIC Recall Benign neoplasm of colon Health Maintenance Due Date Last Done Comments DTaP,Tdap,and Td Vaccines (2 - Td or Tdap) 07/28/2020 07/28/2010, 06/06/1999 Albumin/Creatinine Ratio 09/17/2023 023, 10/13/2021, 11/06/2019, Additional history exists CKD HGB USE SMARTSET 93570 09/17/202309/17, 09/04/2021, 04/09/2021, Additional history exists CKD PHOS USE SMARTSET 65259 09/17/2023 02/0 09/2022, 12/13/2020, 03/31/2018, Additional history exists Diabetic Foot Exam 09/17/2023 09/17/2022, 0 09/03/2021, 11/20/2020, Additional history exists DXA Scan 11/10/2023 11/09/2016 TSH 12/24/2023 12/23/2022, 02/0 09/2022, 08/26/2021, Additional history exists GFR 01/20/2024 07/21/2023, 0810/2022, 12/23/2022, Additional history exists HbA1c 01/20/2024 07/21/2023, 0810/2022, 12/23/2022, Additional history exists Depression Screening 03/08/2024 03/08/2023 Diabetic Eye Exam 10/01/2024 10/01/2023 (Do ne elsewhere), 10/01/2022, 09/30/2022, Additional history exists Colonoscopy Discontinued 08/29/2013, 08/29/2013 [...] type 2 with diabetic peripheral neuropathy (HCC) Type II or unspecified type diabetes mellitus with neurological manifestations, not stated as uncontrolled documented in this encounter Care Teams Silo Painter Relationship Specialty Start Date End Date Gary Meng DO [address] [place] [address] PCP - General Family Medicine 11/06/19 documented as of this encounter
--- OUTSIDE RECORDS SUMMARY | 2023-12-01 04:09 | External Medical Summary | Summary of Care ---
Author Name Unknown Organization [facility] Address [address] [place] [address] Phone [phone] Care Team Providers Care Stripper Apprentice Name Role Phone Claire Gabriel DO Primary Care Provider Encounter Details Date Type Department Care Team (Late st Contact Info) Description 10/05/2023 Population Health External Data Unspecified Department Allergies Active Allergy Reactions Criticality Noted Date Comments Exenatide Hives Medium 05/04/2016 Liraglutide Hives Medium 09/27/2014 documented as of this encounter (statuses as of 10/06/2023) Medications Medication Sig Dispensed Refills Start Date [...] OR CHEW 120 Capsule 11 01/19/2023 Active OneTouch Ultra In Vitro Strip (Glucose Blood) USE TO CHECK BLOOD GLUCOSE FOUR TIMES DAILY 400 Strip 0 02/10/2023 Active Rosuvastatin Calcium 5 MG Oral Tablet (Crestor)Indications: Dyslipidemia, goal LDL below 70 Take 1 Tablet by mouth in the morning. 90 Tablet 3 03/24/2023 Active amLODIPine Besylate 2.5 MG Oral Tablet (Norvasc)Indications: HTN, goal below 140/90 Take 1 Tablet by mouth in the morning. 90 Tablet 2 04/12/2023 Active glipiZIDE ER 2.5 MG Oral Tablet Extended Release 24 Hour (Glucotrol XL)Indications:DM type 2 with diabetic peripheral neuropathy (HCC) Take 1 Tablet by mouth in the morning. 90 Tablet 1 04/12/2023 Active Lisinopril-hydroCHLOR Othiazide 20-25 MG Oral TabletIndications:HTN , goal below 140/90 Take 1 Tablet by mouth in the morning and 1 Tablet before bedtime. 180 Tablet 1 04/12/2023 Active Pregabalin 300 MG Oral Capsule [...] the morning. 90 Tablet 1 09/24/2023 Active documented as of this encounter (statuses as of 10/06/2023) Active Problems Problem Noted Date Diagnosed Date [...] as of this encounter (statuses as of 10/06/2023) Resolved Problems Problem Noted Date Diagnosed Date [...] as of this encounter (statuses as of 10/06/2023) Immunizations Name Administration Dates Next Due COVID-19 [...] 10/15/2023 1:30 PM EST Office Visit Cardiology, [facility] 132 [facility] [place] [address] Deirdre Mares PA-C 132 [facility] [place] [address] 11/05/2023 12:45 PM EDT [facility] 132 [facility] [place] [address] Tara Villarreal, [address] [place] [address] 11/08/2023 8:30 AM EDT Laboratory Laboratory, [place] [address] [facility] [address] [place] [address] [place] [address] 11/11/2023 8:30 AM EDT Office Visit Family Practice, [place] [address] [facility] [phone] Claire Gabriel, [address] [facility] [address] 03/09/2024 2:00 PM EDT Nurse Only Ancillary Department, [place] [address] [facility] [address] [place], Nurse [facility] [address] [facility] [address] Scheduled Procedures Name Priority Associated Diagnoses Date/Ti me COLONOSCOPY FLEXIBLE PROXIMA L DIAGNOSTIC Recall Benign neoplasm of colon Health Maintenance Due Date Last Done Comments DTaP,Tdap,and Td Vaccines (2 - Td or Tdap) 07/28/2020 07/28/2010, 06/06/1999 Albumin/Creatinine Ratio 09/17/2023 023, 10/13/2021, 11/06/2019, Additional history exists CKD HGB USE SMARTSET 09471 09/17/202309/17, 09/04/2021, 04/09/2021, Additional history exists CKD PHOS USE SMARTSET 19689 09/17/202309/2022, 12/13/2020, 03/31/2018, Additional history exists Diabetic [...] Not on filedocumented as of this encounter Care Teams Stripper Apprentice Relationship Specialty Start Date End Date Claire Gabriel DO [address] [place] [address] PCP - General Family Medicine 11/06/19 documented as of this encounter
--- OUTSIDE RECORDS SUMMARY | 2023-12-01 04:09 | External Medical Summary | Summary of Care ---
Author Name Unknown Organization [facility] Address [address] [place] [address] Phone [phone] Care Team Providers Care Composite Layup Worker Name Role Phone Claire Gabriel DO Primary Care Provider Reason for Visit * Reason Onset Date Comments Order Request 10/26/2023 Glucose monitor Encounter Details Date Type Department Care Team (Late st Contact Info) Description 10/26/2023 Telephone [facility] [address] [place] [address] Claire Gabriel DO [address] [place] [address] Order Request (Glucose monitor) Allergies Active Allergy Reactions Criticality Noted Date Comments Exenatide Hives Medium 05/04/2016 Liraglutide Hives Medium 09/27/2014 documented as of this encounter (statuses as of 10/27/2023) Medications Medication Sig Dispensed Refills Start Date [...] as of this encounter (statuses as of 10/27/2023) Active Problems Problem Noted Date Diagnosed Date [...] as of this encounter (statuses as of 10/27/2023) Resolved Problems Problem Noted Date Diagnosed Date [...] as of this encounter (statuses as of 10/27/2023) Immunizations Name Administration Dates Next Due COVID-19 [...] encounter Miscellaneous Notes * Telephone Encounter - Claire Gabriel DO - 10/27/2023 2:11 PM EDT Cannot find Rx, but ordered DME * Telephone Encounter - Hugh Vera OSA - 10/26/2023 9:54 AM EDT An order was requested for this patient. Name of Requesting Provider: Rosalind Moreirapatient Order Requested: one touch ultra glucomenter Diagnosis/Reason for Request: Diabetes If order request is for Mammogram: Is the patient having any breast symptoms? N/A Is there a chance of ? N/A Has the patient had any breast problems in the past? NA What location AND department does the patient wish to have their order completed at? Please sent [facility]. Fax Number, if applicable: If the caller [...] 11/05/2023 12:45 PM EDT Office Visit Cardiology, [facility] 132 [facility] [place] [address] Tara Villarreal [address] [place] [address] 11/08/2023 8:30 AM EDT [address] Laboratory, [address] [phone] [facility] [address] [place], [place] [phone] 11/11/2023 8:30 AM EDT Office Visit Family [facility], [place] [address] [place], [place] [address] [phone] Claire Gabriel DO [address] [facility] [address] 03/09/2024 2:00 PM EDT Nurse Only Ancillary Department, [place] [address] [place], [place] [address] [phone] [place] Nurse Annual Wellness [address] [facility] [place] [phone] Scheduled Procedures Name Priority Associated Diagnoses Date/Ti me COLONOSCOPY FLEXIBLE PROXIMA L DIAGNOSTIC Recall Benign neoplasm of colon Health Maintenance Due Date Last Done Comments DTaP,Tdap,and Td Vaccines (2 - Td or Tdap) 07/28/2020 07/28/2010, 06/06/1999 Albumin/Creatinine Ratio 09/17/2023 023, 10/13/2021, 11/06/2019, Additional history exists CKD HGB USE SMARTSET 85694 09/17/202309/17, 09/04/2021, 04/09/2021, Additional history exists CKD PHOS USE SMARTSET 91289 09/17/2023 02/0 09/2022, 12/13/2020, 03/31/2018, Additional history exists Diabetic Foot Exam 09/17/2023 09/17/2022, 0 09/03/2021, 11/20/2020, Additional history exists DXA Scan 11/10/2023 11/09/2016 TSH 12/24/2023 12/23/2022, 02/0 09/2022, 08/26/2021, Additional history exists GFR 01/20/2024 07/21/2023, 082 10/2022, 12/23/2022, Additional history exists HbA1c 01/20/2024 [...] uncontrolled documented in this encounter Care Teams Composite Layup Worker Relationship Specialty Start Date End Date Claire Gabriel DO [address] [place] [facility] [place] [address] PCP - General Family Medicine 11/06/19 documented as of this encounter
--- OUTSIDE RECORDS SUMMARY | 2023-12-01 04:09 | External Medical Summary | Summary of Care ---
Author Name Unknown Organization [facility] Address [address] [place] [address] Phone [phone] Care Team Providers Care [employer] Rep Name Role Phone Gary Meng DO Primary Care Provider Reason for Visit * Reason Onset Date Comments Medication Refill 10/12/2023 Encounter Details Date Type Department Care Team (Late st Contact Info) Description 10/12/2023 Refill [facility] [address] [place] [address] Gary Meng DO [address] [place] [address] Allergies Active Allergy Reactions Criticality Noted Date Comments Exenatide Hives Medium 05/04/2016 Liraglutide Hives Medium 09/27/2014 documented as of this encounter (statuses as of 10/13/2023) Medications Medication Sig Dispensed Refills Start Date [...] the morning. 90 Tablet 1 04/12/2023 Active Lisinopril-hydroCHL OROthiazide 20-25 MG Oral TabletIndications:H [...] TIMES DAILY 400 Strip 1 10/13/2023 Active OneTouch Ultra In Vitro Strip (Glucose Blood) USE STRIP TO CHECK GLUCOSE 4 TIMES DAILY 400 Strip 1 10/11/2023 4 Discontinue d(Refill) documented as of this encounter (statuses as of 10/13/2023) Active Problems Problem Noted Date Diagnosed Date [...] as of this encounter (statuses as of 10/13/2023) Resolved Problems Problem Noted Date Diagnosed Date [...] as of this encounter (statuses as of 10/13/2023) Immunizations Name Administration Dates Next Due COVID-19 [...] encounter Miscellaneous Notes * Telephone Encounter - Gary Meng DO - 10/13/2023 2:19 PM ESTSigned Prescriptions: Disp Refills OneTouch Ultra In Vitro Strip (Glucose Blo*400 St*1 Sig: USE STRIP TO CHECK GLUCOSE 4 TIMES DAILYAuthorizing Provider: GARY MENG documented in this encounter Plan of Treatment Upcoming Encounters Date Type Department Care Team (Late st Contact Info) Description 10/15/2023 1:30 PM EST Office Visit Cardiology, [facility] 132 [facility] [place] [address] Deirdre Mares PA-C 132 [facility] [place] [address] 11/05/2023 12:45 PM EDT Office Visit Cardiology, [facility] 132 [facility] [place] [address] Tara Villarreal DO [address] [place] [address] 11/08/2023 8:30 AM EDT Laboratory Laboratory, [place] [address] [facility] [phone] [facility] [address] [place] [address] 11/11/2023 8:30 AM EDT Office Visit Family [facility], [place] [address] [facility] [phone] Gary Meng DO [address] [facility] [place] [address] 03/09/2024 2:00 PM EDT Nurse Only Ancillary Department, [place] [address] [facility] [address] [place], Nurse Annual Wellness [address] [place] [address] Scheduled Procedures Name Priority Associated Diagnoses Date/Ti me COLONOSCOPY FLEXIBLE PROXIMA L DIAGNOSTIC Recall Benign neoplasm of colon Health Maintenance Due Date Last Done Comments DTaP,Tdap,and Td Vaccines (2 - Td or Tdap) 07/28/2020 07/28/2010, 06/06/1999 Albumin/Creatinine Ratio 09/17/2023 023, 10/13/2021, 11/06/2019, Additional history exists CKD HGB USE SMARTSET 44411 09/17/202309/17, 09/04/2021, 04/09/2021, Additional history exists CKD PHOS USE SMARTSET 65116 09/17/2023 02/0 09/2022, 12/13/2020, 03/31/2018, Additional history [...] filedocumented as of this encounter Care Teams Home [employer] Rep Relationship Specialty Start Date End Date Gary Meng DO [address] [place] [address] PCP - General Family Medicine 11/06/19 documented as of this encounter
--- OUTSIDE RECORDS SUMMARY | 2023-12-01 04:09 | External Medical Summary | Summary of Care ---
Author Name Unknown Organization [facility] Address [address] [place] [address] Phone [phone] Care Team Providers Care Senior Linux Systems Administrator Name Role Phone Gary Meng DO Primary Care Provider Reason for Visit * Reason Comments eRx-Medication Refill Encounter Details Date Type Department Care Team (Late st Contact Info) Description 10/11/2023 Refill [facility] [address] [place] [address] Gary Meng DO [address] [place] [address] Allergies Active Allergy Reactions Criticality Noted Date Comments Exenatide Hives Medium 05/04/2016 Liraglutide Hives Medium 09/27/2014 documented as of this encounter (statuses as of 10/11/2023) Medications Medication Sig Dispensed Refills Start Date [...] the morning. 90 Tablet 2 3 Active glipiZIDE ER 2.5 MG Oral Tablet Extended Release 24 Hour (Glucotrol XL)Indications:DM type 2 with diabetic peripheral neuropathy (HCC) Take 1 Tablet by mouth in the morning. 90 Tablet 1 3 Active Lisinopril-hydroCHL OROthiazide 20-25 MG Oral [...] TIMES DAILY 400 Strip 1 4 Active OneTouch Ultra In Vitro Strip (Glucose Blood) USE TO CHECK BLOOD GLUCOSE FOUR TIMES DAILY 400 Strip 0 3 10/11/19 24 Discontinued documented as of this encounter (statuses as of 10/11/2023) Active Problems Problem Noted Date Diagnosed Date [...] as of this encounter (statuses as of 10/11/2023) Resolved Problems Problem Noted Date Diagnosed Date [...] as of this encounter (statuses as of 10/11/2023) Immunizations Name Administration Dates Next Due COVID-19 [...] encounter Miscellaneous Notes * Telephone Encounter - [facility] - 10/11/2023 9:12 PM EST Signed Prescriptions: Disp Refills OneTouch Ultra In Vitro Strip (Glucose Blo*400 St*1 Sig: USE STRIP TO CHECK GLUCOSE 4 TIMES DAILYAuthorizing Provider: GARY MENG User: SANDRA PRESTON documented in this encounter Plan of Treatment Upcoming Encounters Date Type Department Care Team (Late st Contact Info) Description 10/15/2023 1:30 PM EST Office Visit Cardiology, [facility] [place] [address] Deirdre Mares, [place] 132 [facility] [place] [address] 11/05/2023 12:45 PM EDT Office Visit Cardiology, [facility] 132 [facility] [place] [address] Tara Villarreal, [address] [facility] [place] [address] 11/08/2023 8:30 AM EDT Laboratory Laboratory, [place] [address] [place] [address] [facility] [address] [place] [address] 11/11/2023 8:30 AM EDT Office Visit Family [facility], [place] [address] [place] [facility] [place] [address] Gary Meng, DO [address] [place] [address] 03/09/2024 2:00 PM EDT Nurse Only Ancillary Department, [place] [address] [place] [address] [place], Nurse Annual Wellness [address] [place] [address] Scheduled Procedures Name Priority Associated Diagnoses Date/Ti me COLONOSCOPY FLEXIBLE PROXIMA L DIAGNOSTIC Recall Benign neoplasm of colon Health Maintenance Due Date Last Done Comments DTaP,Tdap,and Td Vaccines (2 - Td or Tdap) 07/28/2020 07/28/2010, 06/06/1999 Albumin/Creatinine Ratio 09/17/2023 023, 10/13/2021, 11/06/2019, Additional history exists CKD HGB USE SMARTSET 16180 09/17/202309/17, 09/04/2021, 04/09/2021, Additional history exists CKD PHOS USE SMARTSET 63846 09/17/2023 02/0 09/2022, 12/13/2020, 03/31/2018, Additional history [...] filedocumented as of this encounter Care Teams Senior Linux Systems Administrator Relationship Specialty Start Date End Date Gary Meng DO [address] [place] [address] PCP - General Family Medicine 11/06/19 documented as of this encounter
--- OUTSIDE RECORDS SUMMARY | 2023-12-01 04:09 | External Medical Summary | Summary of Care ---
Author Name Unknown Organization [facility] Address [address] [place] [address] Phone [phone] Care Team Providers Care Qualifications Examiner Name Role Phone Gary Meng DO Primary Care Provider Reason for Visit * Reason Onset Date Comments Medication Refill 09/23/2023 Encounter Details Date Type Department Care Team (Late st Contact Info) Description 09/23/2023 Refill [facility] [address] [place] [address] Gary Meng DO [address] [place] [address] Allergies Active Allergy Reactions Criticality Noted Date Comments Exenatide Hives Medium 05/04/2016 Liraglutide Hives Medium 09/27/2014 documented as of this encounter (statuses as of 09/24/2023) Medications Medication Sig Dispensed Refills Start Date [...] the morning. 90 Tablet 1 09/24/2023 Active Jardiance 25 MG Oral Tablet (Empagliflozin) Take 1 tablet by mouth once daily 90 Tablet 1 03/29/2023 4 Discontinue d(Refill) documented as of this encounter (statuses as of 09/24/2023) Active Problems Problem Noted Date Diagnosed Date [...] as of this encounter (statuses as of 09/24/2023) Resolved Problems Problem Noted Date Diagnosed Date [...] as of this encounter (statuses as of 09/24/2023) Immunizations Name Administration Dates Next Due COVID-19 [...] encounter Miscellaneous Notes * Telephone Encounter - Diana Albert, [facility] - 09/24/2023 7:55 AM ESTSigned Prescriptions: Disp Refills Empagliflozin 25 MG Oral Tablet (Jardiance)90 Tab*1 Sig: Take 1 Tablet by mouth in the morning. Authorizing Provider: GARY MENG Ordering User: DIANA ALBERT * Telephone Encounter - Breana Connors CPhT - 09/23/2023 10:36 AM EST Did you pend patient's preferred pharmacy and medication before forwarding?yes Pharmacy: [facility] [id number] [place] Pending Prescriptions: Disp Refills Empagliflozin 25 MG Oral Tablet (Jardianc*90 Tab*1 Sig: Take 1 Tablet by mouth in the morning. Last Visit: 07/21/2023 (in office), Visit date not found (telemedicine) Next Visit: 11/11/2023 If no future appointments scheduled, and last appointment is greater than a year ago, please schedule patient for a follow-up appointment Last date the medication was ordered: 03/29/23 Is this request for a controlled substance?No Urine Drug Screen:No results found for this or any previous visit. Patient Phone Numbers Labs: Lab Results Component Value Date/Time CREAT 1.2 (H) 07/21/2023 10:52 AM CREAT 1.06 04/09/2021 12:00 AM CREAT 1.1 (H) 08/26/2020 09:00 AM POTASSIUM 4.3 07/21/2023 10:52 AM POTASSIUM 4.1 04/09/2021 12:00 AM POTASSIUM 4.1 08/26/2020 09:00 AM TSH 0.92 12/23/2022 08:43 AM TSH 1.86 05/17/2020 09:37 AM LDLCALC 06/15/2019 10:05 AM Uninterpretable, recommend direct LDL cholesterol testing. LDLDIRECT 71 04/07/2023 08:24 AM LDLDIRECT 74 08/26/2020 09:00 AM LDLDIRECT 88 10/21/2006 09:54 AM ALT 11 07/21/2023 10:52 AM ALT 22 05/17/2020 09:37 AM HGBA1C 7.7 (H) 07/21/2023 10:52 AM HGBA1C 6.2 (H) 09/12/2020 10:04 AM documented in this encounter Plan of Treatment Upcoming Encounters Date Type Department Care Team (Late st Contact Info) Description 10/15/2023 1:30 PM EST Office Visit Cardiology, [facility] [address] [facility] [place] [address] Deirdre Mares, LUCIANA 132 [facility] [place] [address] 11/05/2023 12:45 PM EDT Office Visit Cardiology, [facility] [address] [facility] [place] [address] Tara Villarreal, [address] [place] [address] 11/08/2023 8:30 AM EDT Laboratory Laboratory, [place] [address] [place] [address] [facility] [address] [place] [address] 11/11/2023 8:30 AM EDT Office Visit Family [facility], [place] [address] [place] [address] Gary Meng, DO [address] [place] [address] 03/09/2024 2:00 PM EDT Nurse Only Ancillary Department, [place] [address] [place] [address] [place], Nurse [facility] [address] [place] [address] Scheduled Procedures Name Priority Associated Diagnoses Date/Ti me COLONOSCOPY FLEXIBLE PROXIMA L DIAGNOSTIC Recall Benign neoplasm of colon Health Maintenance Due Date Last Done Comments Hepatitis B (1 of 3 - Risk 3-dose series) 2007 DTaP,Tdap,and Td Vaccines (2 - Td or Tdap) 07/28/2020 07/28/2010, 06/06/1999 Albumin/Creatinine Ratio 09/17/2023 023, 10/13/2021, 11/06/2019, Additional history exists CKD HGB USE SMARTSET 69345 09/17/202309/17, 09/04/2021, 04/09/2021, Additional history exists CKD PHOS USE SMARTSET 37071 09/17/2023 02/0 09/2022, 12/13/2020, 03/31/2018, Additional history exists Diabetic Foot Exam 09/17/2023 09/17/2022, 0 09/03/2021, 11/20/2020, Additional history exists Diabetic Eye Exam 10/01/2023 10/01/2022, , 09/30/2022, Additional history exists DXA Scan 11/10/2023 11/09/2016 TSH 12/24/2023 12/23/2022, 02/0 09/2022, 08/26/2021, Additional history exists GFR 01/20/2024 07/21/2023, 03/17, 12/23/2022, Additional history exists HbA1c 01/20/2024 07/21/2023, 03/17, 12/23/2022, Additional history exists Depression Screening 03/08/2024 03/08/2023 Colonoscopy Discontinued 08/29/2013, 08/29/2013 Colorectal Cancer Screening [...] filedocumented as of this encounter Care Teams Qualifications Examiner Relationship Specialty Start Date End Date Gary Meng DO [address] [place] [address] PCP - General Family Medicine 11/06/19 documented as of this encounter
--- OUTSIDE RECORDS SUMMARY | 2023-12-01 04:10 | External Medical Summary | Summary of Care ---
Author Name Unknown Organization [facility] Address [address] [place] [address] Phone [phone] Care Team Providers Care Combat Control Manager Name Role Phone Claire Gabriel DO Primary Care Provider Reason for Visit * Reason Onset Date Comments Health Maintenance 09/22/2023 Encounter Details Date Type Department Care Team (Late st Contact Info) Description 09/22/2023 Telephone [facility] [address] [place] [address] Claire Gabriel DO [address] [place] [address] Health Maintenance Allergies Active Allergy Reactions Criticality Noted Date Comments Exenatide Hives Medium 05/04/2016 Liraglutide Hives Medium 09/27/2014 documented as of this encounter (statuses as of 09/22/2023) Medications Medication Sig Dispensed Refills Start Date End Date Status ASPIRIN 81 MG PO TABS 1 TABLET DAILY 0 Active Multiple Vitamins-Minerals (MULTI FOR HER 50+) CAPS Take by mouth. 0 Active B Complex-Folic Acid (B COMPLEX FORMULA 1) TABS Take by mouth. 0 Active coenzyme Q-10 100 MG CapsuleIndications:H TN, goal below 140/90,DM type 2 with diabetic peripheral neuropathy (HCC),Dyslipidemia, goal LDL below 100 Take 1 Capsule by mouth in the morning. Patient states she is taking 200 mg daily. 0 06/27/2018 Active Biotin 10 MG Oral Tablet Take by mouth 2 Tablets . 0 Active Levothyroxine Sodium 75 MCG Oral TabletIndications:Ac quired hypothyroidism TAKE 1 TABLET BY MOUTH ONCE DAILY AT LEAST 30 MINUTES BEFORE BREAKFAST OR OTHER MEDICATIONS 90 Tablet 3 09/30/2022 Active OneTouch Ultra Control In Vitro Solution [...] Active Rosuvastatin Calcium 5 MG Oral Tablet (Crestor)Indications :Dyslipidemia, goal LDL below 70 Take 1 Tablet by mouth in the morning. 90 Tablet 3 03/24/2023 Active Jardiance 25 MG Oral Tablet (Empagliflozin) Take 1 tablet by mouth once daily 90 Tablet 1 03/29/2023 Active amLODIPine Besylate 2.5 MG Oral Tablet (Norvasc)Indications :HTN, goal below 140/90 Take 1 Tablet by mouth in the morning. 90 Tablet 2 04/12/2023 Active glipiZIDE ER 2.5 MG Oral Tablet Extended Release 24 Hour (Glucotrol XL)Indications:DM type 2 with diabetic peripheral neuropathy (HCC) Take 1 Tablet by mouth in the morning. 90 Tablet 1 04/12/2023 Active Lisinopril-hydroCHLO ROthiazide 20-25 MG Oral TabletIndications:HT N, goal below 140/90 Take 1 Tablet by mouth in the morning and 1 Tablet before bedtime. 180 Tablet 1 04/12/2023 Active Pregabalin 300 MG Oral Capsule (Lyrica)Indications: DM type 2 with diabetic peripheral neuropathy (HCC) Take 1 Capsule by mouth in the morning and 1 Capsule before bedtime. 60 Capsule 5 06/23/2023 Active Tradjenta 5 MG Oral Tablet (linaGLIPtin)Indicat ions:Diabetes mellitus with stage 3 chronic kidney disease (HCC) TAKE 1 TABLET BY MOUTH IN THE MORNING 90 Tablet 2 08/02/2023 Active Gemfibrozil 600 MG Oral Tablet (Lopid) TAKE 1 TABLET BY MOUTH TWICE DAILY 30 MINUTES BEFORE THE MORNING AND EVENING MEALS 180 Tablet 1 08/27/2023 Active documented as of this encounter (statuses as of 09/22/2023) Active Problems Problem Noted Date Diagnosed Date [...] as of this encounter (statuses as of 09/22/2023) Resolved Problems Problem Noted Date Diagnosed Date [...] as of this encounter (statuses as of 09/22/2023) Immunizations Name Administration Dates Next Due COVID-19 [...] encounter Miscellaneous Notes * Telephone Encounter - Cesia Ponce LPN - 09/22/2023 8:59 AM EST Care Gaps Comprehensive Care Outreach Last Office/Telemedicine Visit: 07/21/2023 (in office), Visit date not found (telemedicine) Next Office Visit: 11/11/2023 Hemoglobin AIC Results: Lab Results Component Value Date/Time HEMOGLOBIN A1C - [facility] 7.7 (H) 07/21/2023 10:52 AM HEMOGLOBIN A1C - [facility] 7.3 (H) 04/07/2023 08:24 AM HEMOGLOBIN A1C - [facility] 7.6 (H) 12/23/2022 08:43 AM HEMOGLOBIN A1C - [facility] 6.2 (H) 09/12/2020 10:04 AM HEMOGLOBIN A1C - [facility] 8.6 (H) 05/17/2020 09:37 AM HEMOGLOBIN A1C - [facility] 7.2 (H) 12/15/2019 10:05 AM BP Readings from Last 1 Encounters: 07/21/23 130/56 Reviewed Health Maintenance below: Health Maintenance Topic Date Due Hepatitis B (1 of 3 - Risk 3-dose series) Never done DTaP,Tdap,and Td Vaccines (2 - Td or Tdap) 07/28/2020 Albumin/Creatinine Ratio 09/17/2023 Diabetic Foot Exam 09/17/2023 CKD HGB USE SMARTSET 27919 09/17/2023 CKD PHOS USE SMARTSET 94494 09/17/2023 Diabetic Eye Exam 10/01/2023 DXA Scan 11/10/2023 Labs ordered and scheduled Eye feb sees rambo Freire already scheduled Care Gap Outreach Action Taken: Spoke to patient documented in this encounter Plan of Treatment Upcoming Encounters Date Type Department Care Team (Late st Contact Info) Description 10/15/2023 1:30 PM EST Office Visit Cardiology, [facility] [place] [address] Deirdre Mares PA-C [address] [place] [address] 11/05/2023 12:45 PM EDT [facility] [place] [address] Tara Villarreal Karla, [address] [place] [address] 11/08/2023 8:30 AM EDT Laboratory Laboratory, [place] [address] [facility] [phone] [place] [address] [address] [facility] [address] 11/11/2023 8:30 AM EDT Office Visit [place] [address] [place] [place] [address] Claire Gabriel, DO [address] [facility] [place] [address] 03/09/2024 2:00 PM EDT Nurse Only Ancillary Department, [place] [address] [place] [address] [place], Nurse [facility] [address] [place] [address] Scheduled Orders Name Type Priority Associated Diagnoses Orde r Schedule CBC Lab Routine Chronic kidney disease, unspecified CKD stage Expected: 09/22/2023, Expires: 09/22/2024 PHOSPHORUS Lab Routine Chronic kidney disease, unspecified CKD stage Expected: 09/22/2023, Expires: 09/22/2024 ALBUMIN / CREATININE RATIO, URINE Lab Routine Chronic kidney disease, unspecified CKD stage Expected: 09/22/2023 (Approximate), Expires: 09/22/2024 Scheduled Procedures Name Priority Associated Diagnoses Date/Ti me COLONOSCOPY FLEXIBLE PROXIMA L DIAGNOSTIC Recall Benign neoplasm of colon Health Maintenance Due Date Last Done Comments Hepatitis B (1 of 3 - Risk 3-dose series) 2007 DTaP,Tdap,and Td Vaccines (2 - Td or Tdap) 07/28/2020 07/28/2010, 06/06/1999 Albumin/Creatinine Ratio 09/17/2023 023, 10/13/2021, 11/06/2019, Additional history exists CKD HGB USE SMARTSET 86291 09/17/202309/17, 09/04/2021, 04/09/2021, Additional history exists CKD PHOS USE SMARTSET 90254 09/17/2023 02/0 09/2022, 12/13/2020, 03/31/2018, Additional history [...] as of this encounter Visit Diagnoses Diagnosis Chronic kidney disease, unspecified CKD stage- Primary documented in this encounter Care Teams Combat Control Manager Relationship Specialty Start Date End Date Claire Gabriel DO [address] [facility] [address] PCP - General Family Medicine 11/06/19 documented as of this encounter
--- OUTSIDE RECORDS SUMMARY | 2023-12-01 04:10 | External Medical Summary | Summary of Care ---
Author Name Unknown Organization [facility] Address [address] [place] [address] Phone [phone] Care Team Providers Care Retail Store Associate Name Role Phone Gary Meng DO Primary Care Provider Reason for Visit * Reason Comments eRx-Medication Refill Encounter Details Date Type Department Care Team (Late st Contact Info) Description 09/22/2023 Refill [facility] [address] [place] [address] Gary Meng DO [address] [place] [address] Acquired hypothyroidism Allergies Active Allergy Reactions Criticality Noted Date [...] OR CHEW 120 Capsule 11 3 Active OneTouch Ultra In Vitro Strip (Glucose Blood) USE TO CHECK BLOOD GLUCOSE FOUR TIMES DAILY 400 Strip 0 3 Active Rosuvastatin Calcium 5 MG Oral Tablet (Crestor)Indication s:Dyslipidemia, goal LDL below 70 Take 1 Tablet by mouth in the morning. 90 Tablet 3 3 Active Jardiance 25 MG Oral Tablet (Empagliflozin) Take 1 tablet by mouth once daily 90 Tablet 1 3 Active amLODIPine Besylate 2.5 MG Oral [...] OTHER MEDS 90 Tablet 0 4 Active Levothyroxine Sodium 75 MCG Oral TabletIndications:A cquired hypothyroidism TAKE 1 TABLET BY MOUTH ONCE DAILY AT LEAST 30 MINUTES BEFORE BREAKFAST OR OTHER MEDICATIONS 90 Tablet 3 3 09/22/19 24 Discontinued documented as of this encounter [...] encounter Miscellaneous Notes * Telephone Encounter - Jackie Morgan, [facility] - 09/22/2023 7:54 PM ESTSigned Prescriptions: Disp Refills Levothyroxine Sodium 75 MCG Oral Tablet 90 Tab*0 Sig: TAKE 1 TABLET BY MOUTH IN THE MORNING AT LEAST 30 MIN PRIOR TO BREAKFAST OR OTHER MEDSAuthorizing Provider: GARY MENG User: JACKIE MORGAN * Telephone Encounter - Jackie Morgan [facility] - 09/22/2023 7:54 PM EST RX authorized. Zero refills given until upcoming bloodwork completed. documented in this encounter Plan of Treatment Upcoming Encounters Date Type Department Care Team (Late st Contact Info) Description 10/15/2023 1:30 PM EST Office Visit Cardiology, [facility] [place] [address] Deirdre Mares PA-C [address] [place] [address] 11/05/2023 12:45 PM EDT Office Visit Cardiology, [facility] [address] [facility] [place] [address] Tara Villarreal, [address] [place] [address] 11/08/2023 8:30 AM EDT Laboratory Laboratory, [address] [phone] [facility] [address] [place] [address] 11/11/2023 8:30 AM EDT Office Visit Family Practice, [address] [place] [phone] Gary Meng DO [address] [place] [address] 03/09/2024 2:00 PM EDT Nurse Only Ancillary Department, [address] [place] [address] [place], Nurse [facility] [address] [place] [address] Scheduled Procedures Name Priority Associated Diagnoses Date/Ti me COLONOSCOPY FLEXIBLE PROXIMA L DIAGNOSTIC Recall Benign neoplasm of colon Health Maintenance Due Date Last Done Comments Hepatitis B (1 of 3 - Risk 3-dose series) 2007 DTaP,Tdap,and Td Vaccines (2 - Td or Tdap) 07/28/2020 07/28/2010, 06/06/1999 Albumin/Creatinine Ratio 09/17/2023 023, 10/13/2021, 11/06/2019, Additional history exists CKD HGB USE SMARTSET 44601 09/17/202309/17, 09/04/2021, 04/09/2021, Additional history exists CKD PHOS USE SMARTSET 32771 09/17/2023 02/0 09/2022, 12/13/2020, 03/31/2018, Additional history [...] as of this encounter Visit Diagnoses Diagnosis Acquired hypothyroidism Unspecified hypothyroidism documented in this encounter Care Teams Retail Store Associate Relationship Specialty Start Date End Date Gary Meng DO [address] [place] [address] PCP - General Family Medicine 11/06/19 documented as of this encounter
--- OUTSIDE RECORDS SUMMARY | 2023-12-01 04:10 | External Medical Summary | Summary of Care ---
Author Name Unknown Organization [facility] Address [address] [place] [address] Phone [phone] Care Team Providers Care Evaporator Helper Name Role Phone Claire Gabriel DO Primary Care Provider Reason for Visit * Reason Onset Date Comments Advice 09/22/2023 Encounter Details Date Type Department Care Team (Late st Contact Info) Description 09/22/2023 Telephone [facility] [address] [place] [address] Claire Gabriel DO [address] [place] [address] Advice Allergies Active Allergy Reactions Criticality Noted Date Comments Exenatide Hives Medium 05/04/2016 Liraglutide Hives Medium 09/27/2014 documented as of this encounter (statuses as of 09/23/2023) Medications Medication Sig Dispensed Refills Start Date [...] as of this encounter (statuses as of 09/23/2023) Active Problems Problem Noted Date Diagnosed Date [...] as of this encounter (statuses as of 09/23/2023) Resolved Problems Problem Noted Date Diagnosed Date [...] as of this encounter (statuses as of 09/23/2023) Immunizations Name Administration Dates Next Due COVID-19 [...] Telephone Encounter - Iman Delgadillo LPN - 09/23/2023 10:40 AM EST Patient made aware. She verbalized understanding. * Telephone Encounter - Claire Gabriel DO - 09/22/2023 3:06 PM EST Yes we can do this in October * Telephone Encounter - Joan Estevez OSA - 09/22/2023 9:57 AM EST Pt called in she wants to know if she needs to get A1C blood work when she has appt on october since she always does please call pt and follow up. Thank you JESSIE Bae documented in this encounter Plan of Treatment Upcoming Encounters Date Type Department Care Team (Late st Contact Info) Description 10/15/2023 1:30 PM EST Office Visit Cardiology, [facility] [place] [address] Deirdre Mares PA-C 132 [facility] [place] [address] 11/05/2023 12:45 PM EDT Office Visit Cardiology, [facility] [place] [address] Tara Villarreal, DO [address] [place] [address] 11/08/2023 8:30 AM EDT Laboratory Laboratory, [place] [address] [facility] [phone] [facility] [address] [place] [address] 11/11/2023 8:30 AM EDT Office Visit Family Practice, [place] [address] [facility] [phone] Claire Gabriel, DO [address] [facility] [address] 03/09/2024 2:00 PM EDT Nurse Only Ancillary Department, [place] [address] [facility] [address] [place], Nurse [facility] [address] [facility], [place] [address] Scheduled Procedures Name Priority Associated Diagnoses Date/Ti me COLONOSCOPY FLEXIBLE PROXIMA L DIAGNOSTIC Recall Benign neoplasm of colon Health Maintenance Due Date Last Done Comments Hepatitis B (1 of 3 - Risk 3-dose series) 2007 DTaP,Tdap,and Td Vaccines (2 - Td or Tdap) 07/28/2020 07/28/2010, 06/06/1999 Albumin/Creatinine Ratio 09/17/2023 023, 10/13/2021, 11/06/2019, Additional history exists CKD HGB USE SMARTSET 37716 09/17/202309/17, 09/04/2021, 04/09/2021, Additional history exists CKD PHOS USE SMARTSET 67558 09/17/2023 02/0 09/2022, 12/13/2020, 03/31/2018, Additional history [...] filedocumented as of this encounter Care Teams Evaporator Helper Relationship Specialty Start Date End Date Claire Gabriel DO [address] [place] [address] PCP - General Family Medicine 11/06/19 documented as of this encounter
--- OUTSIDE RECORDS SUMMARY | 2023-12-01 04:10 | External Medical Summary | Summary of Care ---
Author Name Unknown Organization [facility] Address [address] [place] [address] Phone [phone] Care Team Providers Care Intensive Care Ambulance Paramedic Name Role Phone Claire Gabriel DO Primary Care Provider Encounter Details Date Type Department Care Team (Late st Contact Info) Description 09/23/2023 Orders Only PATIENT PORTAL DO NOT DELETE THIS DEPT USED BY [place] [address] Allergies Active Allergy Reactions Criticality Noted Date [...] OTHER MEDS 90 Tablet 0 09/22/2023 Active documented as of this encounter (statuses as of 09/23/2023) Active Problems Problem Noted Date Diagnosed Date Diabetes mellitus with stage 3 chronic kidney di tyra 06/19/2019 DM type 2 with diabetic peripheral [...] Description 10/15/2023 1:30 PM EST Office Visit Cardiology [facility] [address] [facility] [place] [address] Deirdre Mares PA-C 132 [facility] [place] [address] 11/05/2023 12:45 PM EDT Office Visit Cardiology [facility] [place] [address] Tara Villarreal, [address] [place] [address] 11/08/2023 8:30 AM EDT Laboratory Laboratory, [place] [address] [facility] [place] [phone] [place] [address] [place] [address] 11/11/2023 8:30 AM EDT Office Visit Family Practice, [place] [address] [facility] [place] [address] Claire Gabriel DO [address] [facility] [address] 03/09/2024 2:00 PM EDT Nurse Only Ancillary Department, [place] [address] [facility] [address] [place], Nurse [facility] [address] [facility] [address] Scheduled Procedures Name Priority Associated Diagnoses Date/Ti me COLONOSCOPY FLEXIBLE PROXIMA L DIAGNOSTIC Recall Benign neoplasm of colon Health Maintenance Due Date Last Done Comments Hepatitis B (1 of 3 - Risk 3-dose series) 2007 DTaP,Tdap,and Td Vaccines (2 - Td or Tdap) 07/28/2020 07/28/2010, 06/06/1999 Albumin/Creatinine Ratio 09/17/2023 023, 10/13/2021, 11/06/2019, Additional history exists CKD HGB USE SMARTSET 61724 09/17/202309/17, 09/04/2021, 04/09/2021, Additional history exists CKD PHOS USE SMARTSET 29151 09/17/2023 02/0 09/2022, 12/13/2020, 03/31/2018, Additional history [...] filedocumented as of this encounter Care Teams Intensive Care Ambulance Paramedic Relationship Specialty Start Date End Date Claire Gabriel DO [address] [place] [address] PCP - General Family Medicine 11/06/19 documented as of this encounter
--- OUTSIDE RECORDS SUMMARY | 2023-12-01 04:10 | External Medical Summary | Summary of Care ---
Author Name Unknown Organization [facility] Address [address] [place] [address] Phone [phone] Care Team Providers Care Check Viewer Name Role Phone Gary Meng DO Primary Care Provider Reason for Visit * Reason Comments eRx-Medication Refill Encounter Details Date Type Department Care Team (Late st Contact Info) Description 09/22/2023 Refill [facility] [address] [place] [address] Gary Meng DO [address] [place] [address] Acquired hypothyroidism Allergies Active Allergy [...] Notes * Telephone Encounter - Jackie Morgan, [facility] - 09/22/2023 7:54 PM ESTSigned Prescriptions: Disp Refills Levothyroxine Sodium 75 MCG Oral Tablet 90 Tab*0 Sig: TAKE 1 TABLET BY MOUTH IN THE MORNING AT LEAST 30 MIN PRIOR TO BREAKFAST OR OTHER MEDSAuthorizing Provider: GARY MENG User: JACKIE MORGAN * Telephone Encounter - Jackie Morgan [facility] - 09/22/2023 7:54 PM EST RX authorized. Zero refills given until upcoming bloodwork completed. documented in this encounter Plan of Treatment Upcoming Encounters Date Type Department Care Team (Late st Contact Info) Description 10/15/2023 1:30 PM EST Office Visit Cardiology, [facility] [address] [place] [address] Deirdre Mares PA-C [address] [place] [address] 11/05/2023 12:45 PM EDT Office Visit Cardiology, [facility] [address] [place] [address] Tara Villarreal, [address] [place] [address] 11/08/2023 8:30 AM EDT Laboratory Laboratory, [address] [phone] [facility] [address] [place] [address] 11/11/2023 8:30 AM EDT Office Visit Family Practice, [address] [place] [phone] Gary Meng DO [address] [place] [address] 03/09/2024 2:00 PM EDT Nurse Only Ancillary Department, [address] [place] [address] [place], Nurse [facility] [address] [place] [address] Scheduled Procedures Name Priority Associated Diagnoses Date/Ti me COLONOSCOPY FLEXIBLE PROXIMA L DIAGNOSTIC Recall Benign neoplasm of colon Health Maintenance Due Date Last Done Comments Hepatitis B (1 of 3 - Risk 3-dose series) 2007 DTaP,Tdap,and Td Vaccines (2 - Td or Tdap) 07/28/2020 07/28/2010, 06/06/1999 Albumin/Creatinine Ratio 09/17/2023 023, 10/13/2021, 11/06/2019, Additional history exists CKD HGB USE SMARTSET 47062 09/17/202309/17, 09/04/2021, 04/09/2021, Additional history exists CKD PHOS USE SMARTSET 62521 09/17/2023 02/0 09/2022, 12/13/2020, 03/31/2018, Additional history [...] hypothyroidism documented in this encounter Care Teams Check Viewer Relationship Specialty Start Date End Date Gary Meng DO [address] [place] [address] PCP - General Family Medicine 11/06/19 documented as of this encounter
--- OUTSIDE RECORDS SUMMARY | 2023-12-01 04:10 | External Medical Summary | Summary of Care ---
Author Name Unknown Organization [facility] Address [address] [place] [address] Phone [phone] Care Team Providers Care Hemodialysis Patient Care Specialist Name Role Phone Claire Gabriel DO Primary Care Provider [phone] Reason for Visit * Reason Onset Date Comments Advice 09/22/2023 Encounter Details Date Type Department Care Team (Late st Contact Info) Description 09/22/2023 Telephone [facility] [address] [place] [address] Claire Gabriel DO [address] [place] [address] Advice Allergies Active Allergy Reactions [...] 1:30 PM EST Office Visit Cardiology, [facility] [place] [address] Deirdre Mares PA-C [address] [place] [address] 11/05/2023 12:45 PM EDT Office Visit Cardiology, [facility] [address] [facility] [place], [place] [address] Tara Villarreal, DO [address] [facility] [place] [id number] 11/08/2023 8:30 AM EDT Laboratory Laboratory, [place] [address] [place] [phone] [place], Laboratory [address] [place] [address] 11/11/2023 8:30 AM EDT Office Visit Family Practice, [place] [address] [address] [facility], [place] [phone] Claire Gabriel, [address] [place] [address] 03/09/2024 2:00 PM EDT Nurse Only Ancillary Department, [place] [address] [address] [facility] [place] [address] [place], Nurse [facility] [address] [place] [facility] [place] [address] Scheduled Procedures Name Priority Associated Diagnoses Date/Ti me COLONOSCOPY FLEXIBLE PROXIMA L DIAGNOSTIC Recall Benign neoplasm of colon Health Maintenance Due Date Last Done Comments Hepatitis B (1 of 3 - Risk 3-dose series) 2007 DTaP,Tdap,and Td Vaccines (2 - Td or Tdap) 07/28/2020 07/28/2010, 06/06/1999 Albumin/Creatinine Ratio 09/17/2023 023, 10/13/2021, 11/06/2019, Additional history exists CKD HGB USE SMARTSET 70123 09/17/202309/17, 09/04/2021, 04/09/2021, Additional history exists CKD PHOS USE SMARTSET 86078 09/17/2023 02/0 09/2022, 12/13/2020, 03/31/2018, Additional history [...] filedocumented as of this encounter Care Teams Hemodialysis Patient Care Specialist Relationship Specialty Start Date End Date Claire Gabriel DO [address] [facility] [place] [address] PCP - General Family Medicine 11/06/19 documented as of this encounter
--- OUTSIDE RECORDS SUMMARY | 2023-12-01 04:10 | External Medical Summary | Summary of Care ---
Author Name Unknown Organization [facility] Address [address] [place] [address] Phone [phone] Care Team Providers Care Wind Tunnel Engineer Name Role Phone Claire Gabriel DO Primary Care Provider Encounter Details Date Type Department Care Team (Late st Contact Info) Description 08/26/2023 Population Health External Data Unspecified Department Allergies Active Allergy Reactions Criticality Noted Date Comments Exenatide Hives Medium 05/04/2016 Liraglutide Hives Medium 09/27/2014 documented as of this encounter (statuses as of 08/30/2023) Medications Medication Sig Dispensed Refills Start Date [...] as of this encounter (statuses as of 08/30/2023) Active Problems Problem Noted Date Diagnosed Date [...] as of this encounter (statuses as of 08/30/2023) Resolved Problems Problem Noted Date Diagnosed Date [...] as of this encounter (statuses as of 08/30/2023) Immunizations Name Administration Dates Next Due COVID-19 [...] Care Team (Late st Contact Info) Description 09/03/2023 12:45 PM EST [facility] [address] [facility] [place] [address] Tara Villarreal [address] [facility] [place] [address] 11/11/2023 8:30 AM EDT Office Visit [facility] [address] [facility] [place] [phone] Claire Gabriel DO [address] [facility] [place] [address] 12/20/2023 2:00 PM EDT Office Visit [facility] [address] [place] [address] Deirdre Mares PA-C [address] [place] [address] 03/09/2024 2:00 PM EDT Nurse Only Ancillary Department, [place] [address] [facility] [place] [phone] [place], Nurse [facility] [address] [facility] [place] [phone] Scheduled Procedures Name Priority Associated Diagnoses Date/Ti me COLONOSCOPY FLEXIBLE PROXIMA L DIAGNOSTIC Recall Benign neoplasm of colon Health Maintenance Due Date Last Done Comments Hepatitis B (1 of 3 - Risk 3-dose series) 2007 DTaP,Tdap,and Td Vaccines (2 - Td or Tdap) 07/28/2020 07/28/2010, 06/06/1999 Albumin/Creatinine Ratio 09/17/2023 023, 10/13/2021, 11/06/2019, Additional history exists CKD HGB USE SMARTSET 70142 09/17/202309/17, 09/04/2021, 04/09/2021, Additional history exists CKD PHOS USE SMARTSET 56260 09/17/2023 02/0 09/2022, 12/13/2020, 03/31/2018, Additional history exists Diabetic Foot Exam 09/17/2023 09/17/2022, 0 09/03/2021, 11/20/2020, Additional history exists Diabetic Eye Exam 10/01/2023 10/01/2022, , 10/02/2020, Additional history exists DXA Scan 11/10/2023 11/09/2016 [...] filedocumented as of this encounter Care Teams Wind Tunnel Engineer Relationship Specialty Start Date End Date Claire Gabriel DO [address] [place] [address] PCP - General Family Medicine 11/06/19 documented as of this encounter
--- OUTSIDE RECORDS SUMMARY | 2023-12-01 04:11 | External Medical Summary | Summary of Care ---
Author Name Unknown Organization [facility] Address [address] [place] [address] Phone [phone] Care Team Providers Care Assistant Teacher Name Role Phone Bartolomecarey Claire Murphy LIU Primary Care Provider Reason for Visit * Reason Comments Outpatient Testing Encounter Details Date Type Department Care Team (Late st Contact Info) Description 07/21/2023 11:00 AM EST Laboratory Laboratory, [place] [address] [place] [address] [place], Laboratory [address] [place] [address] HTN, goal below 140/90; Diabetes mellitus with stage 3 chronic kidney disease (HCC); Dyslipidemia, goal LDL below 70 Allergies Active Allergy Reactions Criticality Noted Date Comments Exenatide Hives Medium 05/04/2016 Liraglutide Hives Medium 09/27/2014 documented as of this encounter (statuses as of 07/21/2023) Medications Medication Sig Dispensed Refills Start Date [...] by mouth 2 Tablets . 0 Active linaGLIPtin 5 MG Oral Tablet (Tradjenta)Indicatio ns:Diabetes mellitus with stage 3 chronic kidney disease (HCC) Take 1 Tablet by mouth in the morning. 30 Tablet 11 09/17/2022 Active Levothyroxine Sodium 75 MCG Oral TabletIndications:Ac quired hypothyroidism TAKE 1 TABLET BY MOUTH ONCE DAILY AT LEAST 30 MINUTES BEFORE BREAKFAST OR OTHER MEDICATIONS 90 Tablet 3 09/30/2022 Active Hallpass MediaTouch Ultra Control In Vitro Solution Use as [...] TIMES DAILY 400 Strip 0 02/10/2023 Active Gemfibrozil 600 MG Oral Tablet (Lopid) TAKE 1 TABLET BY MOUTH TWICE DAILY 30 MIN BEFORE MORNING AND EVENING MEAL 180 Tablet 1 03/03/2023 Active Rosuvastatin Calcium 5 MG Oral Tablet [...] before bedtime. 60 Capsule 5 06/23/2023 Active documented as of this encounter (statuses as of 07/21/2023) Active Problems Problem Noted Date Diagnosed Date [...] as of this encounter (statuses as of 07/21/2023) Resolved Problems Problem Noted Date Diagnosed Date [...] as of this encounter (statuses as of 07/21/2023) Immunizations Name Administration Dates Next Due COVID-19 [...] (Prevnar) 08/20/2014 Pneumococcal Polysaccharide PPV23 (Pneumovax) 11/02/2016,02/10/2006 Rsv Vac., Recomb, Adjuvant, Pf,0.5 Ml (Arexvy) 07/15/2023 SEASONAL INFLUENZA, PF, 6 M & Above, IM , (FLULAVAL or FLUZONE) 06/14/2018,05/10/2017 Season Influenza, Quad, PF, Adjuvanted, 65+ Yrs, IM (FLUAD) 05/22/2020 Seasonal Influenza, Quadriva lent Hd (Fluzone Hd) [...] Description 09/03/2023 12:45 PM EST Office Visit Cardiology, [facility] [place] [address] Tara Villarreal, DO [address] [place] [address] 09/24/2023 2:00 PM EST Office Visit Cardiology, [facility] [address] [place] [address] Deirdre Mares PA-C [address] [place] [address] 11/11/2023 8:30 AM EDT Office Visit Family Practice, [place] [address] [facility], [place] [phone] Claire Gabriel [facility] [address] [facility] [address] 03/09/2024 2:00 PM EDT Nurse Only Ancillary Department, [place] [address] [address] [facility] [address] [place], Nurse [facility] [address] [place] [facility] [address] Pending Results Name Type Priority Associated Diagnoses Date /Time BASIC METABOLIC PANEL Lab Routine HTN, goal below 140/90 07/21/2023 10:52 AM EST HEMOGLOBIN A1C Lab Routine Diabetes mellitus with stage 3 chronic kidney disease (HCC) 07/21/2023 10:52 AM EST HEPATIC FUNCTION PANEL Lab Routine Dyslipidemia, goal LDL below 70 07/21/2023 10:52 AM EST Scheduled Procedures Name Priority Associated Diagnoses Date/Ti me COLONOSCOPY FLEXIBLE PROXIMA L DIAGNOSTIC Recall Benign neoplasm of colon Health Maintenance Due Date Last Done Comments Hepatitis B (1 of 3 - Risk 3-dose series) 2007 DTaP,Tdap,and Td Vaccines (2 - Td or Tdap) 07/28/2020 07/28/2010, 06/06/1999 Albumin/Creatinine Ratio 09/17/20232 023, 10/13/2021, 11/06/2019, Additional history exists CKD HGB USE SMARTSET 92409 09/17/202309/17, 09/04/2021, 04/09/2021, Additional history exists CKD PHOS USE SMARTSET 45741 09/17/2023 02/09/2022, 12/13/2020, 03/31/2018, Additional history exists Diabetic Foot Exam 09/17/2023 09/17/2022, 0 09/03/2021, 11/20/2020, Additional history exists Diabetic Eye Exam 10/01/2023 10/01/2022, , 10/02/2020, Additional history exists GFR 10/08/2023 04/07/2023, 12/14, 09/14/2022, Additional history exists HbA1c 10/08/2023 04/07/2023, 12/14, 09/14/2022, Additional history exists DXA Scan 11/10/2023 11/09/2016 TSH 12/24/2023 12/23/2022, 09/2022, 08/26/2021, Additional history exists Depression Screening 03/08/2024 03/08/2023 [...] encounter Visit Diagnoses Diagnosis HTN, goal below 140/90 Unspecified essential hypertension Diabetes mellitus with stage 3 chronic kidney disease (HCC) Type II or unspecified type diabetes mellitus with renal manifestations, not stated as uncontrolled Dyslipidemia, goal LDL below 70 Other and unspecified hyperlipidemia documented in this encounter Care Teams Assistant Teacher Relationship Specialty Start Date End Date Claire Gabriel DO [address] [facility] [place] [address] PCP - General Family Medicine 11/06/19 documented as of this encounter
--- OUTSIDE RECORDS SUMMARY | 2023-12-01 04:11 | External Medical Summary | Summary of Care ---
Author Name Unknown Organization [facility] Address [address] [place] [address] Phone [phone] Care Team Providers Care Mobile Device Engineer Name Role Phone Claire Gabriel DO Primary Care Provider [phone] Reason for Visit * Reason Onset Date Comments Advice 07/19/2023 Encounter Details Date Type Department Care Team (Late st Contact Info) Description 07/19/2023 Telephone [facility] [address] [place] [address] Claire Gabriel DO [address] [place] [address] Advice Allergies Active Allergy Reactions [...] OTHER MEDICATIONS 90 Tablet 3 09/30/2022 Active [employer]enta[employer] Ultra Control In Vitro Solution Use as directed. 1 Each 0 10/28/2022 Active AfluentaTouch UltraSoft Lancets Use up to four times a day as directed ( delica) 250.00 100 Each 10 01/13/2023 Active Icosapent Ethyl 1 GM Oral Capsule (Vascepa) TAKE 2 CAPSULES BY MOUTH WITH BREAKFAST AND 2 WITH EVENING MEAL DO NOT CUT, CRUSH, OR CHEW 120 Capsule 11 01/19/2023 Active AfluentaTouch Ultra In Vitro Strip (Glucose Blood) USE [...] money to buy more. Never true 03/08/20 Within the past 12 months, t he [...] encounter Miscellaneous Notes * Telephone Encounter - Brittany Jarquin [facility] - 07/19/2023 6:08 PM EST Patient would like to know if she would need to have blood work before her appointment on 07/21/23. documented in this encounter Plan of Treatment Upcoming Encounters Date Type Department Care Team (Late st Contact Info) Description 09/03/2023 12:45 PM EST Office Visit Cardiology, [facility] 132 [facility] [place] [address] Tara Villarreal, [address] [place] [address] 09/24/2023 2:00 PM EST Office Visit Cardiology, [facility] [address] [place] [address] Dierdre Mares PA-C [address] [place] [address] 11/11/2023 8:30 AM EDT Office Visit Family Practice, [place] [address] [facility] [phone] Claire Gabriel, DO [address] [facility] [address] 03/09/2024 2:00 PM EDT Nurse Only Ancillary Department, [place] [address] [facility] [address] [place], Nurse [facility] [address] [facility] [address] Scheduled Procedures Name Priority Associated Diagnoses Date/Ti me COLONOSCOPY FLEXIBLE PROXIMA L DIAGNOSTIC Recall Benign neoplasm of colon Health Maintenance Due Date Last Done Comments Hepatitis B (1 of 3 - Risk 3-dose series) 2007 DTaP,Tdap,and Td Vaccines (2 - Td or Tdap) 07/28/2020 07/28/2010, 06/06/1999 Albumin/Creatinine Ratio 09/17/2023 023, 10/13/2021, 11/06/2019, Additional history exists CKD HGB USE SMARTSET 58632 09/17/202309/17, 09/04/2021, 04/09/2021, Additional history exists CKD PHOS USE SMARTSET 74414 09/17/2023 02/0 09/2022, 12/13/2020, 03/31/2018, Additional history [...] filedocumented as of this encounter Care Teams Mobile Device Engineer Relationship Specialty Start Date End Date Claire Gabriel DO [address] [place] [address] PCP - General Family Medicine 11/06/19 documented as of this encounter
--- OUTSIDE RECORDS SUMMARY | 2023-12-01 04:11 | External Medical Summary ---
Author Name Unknown Address Unknown Organization K01:[facility] [place] [address] [facility] [address] Laboratory Report Ordering Provider Test Date Status TAQUERIA VEGA 07/21/2023 10:52:52 Final Observation Date Value Abnormality Reference (Units ) Status HbA1C 07/21/2023 10:52:52 7.7 Above high normal 4. 0-5.6 (%) Final The use of HbA1c to monitor glycemic status is based on normal hemoglobin and HbA composition. This test should not be used in patients with abnormal hemoglobin that affects the half life of the red blood cell or the in vivo glycation rates. Glucose, estimated average 07/21/2023 10:52:52 174 Above high normal <126 (mg/dL) Fin al Performing Location [facility] [place] [address] [facility] [address] [facility] [address]
--- OUTSIDE RECORDS SUMMARY | 2023-12-01 04:11 | External Medical Summary ---
Author Name Unknown Address Unknown Organization K01[place] [place] [facility] [address] [place] [address] Laboratory Report Ordering Provider Test Date Status TAQUERIA VEGA 07/21/2023 10:52:52 Final Observation Date Value Abnormality Reference (Units ) Status BUN 07/21/2023 10:52:52 38 Above high normal 6-20 (mg/dL) Final Creatinine 07/21/2023 10:52:52 1.2 Above high normal 0.5-1.0 (mg/dL) Final Glomerular filtration rate/1.73 sq M.predicted [Volume Rate/Area] in Serum, Plasma or Blood by Creatinine-based formula (CKD-EPI) 07/21/2023 10:52:52 45 Below low normal >=60 (mL/min) Final eGFR is calculated based on the CKD-EPI 2020 equation SODIUM 07/21/2023 10:52:52 140 135-146 (m mol/L) Final Potassium 07/21/2023 10:52:52 4.3 3.5-5.1 (m mol/L) Final Cl 07/21/2023 10:52:52 103 98-107 (mm ol/L) Final CO2 07/21/2023 10:52:52 24 22-32 (mmo l/L) Final Anion gap 07/21/2023 10:52:52 13 7-15 (mmol /L) Final Glucose 07/21/2023 10:52:52 162 Above high normal 70 -120 (mg/dL) Final Calcium 07/21/2023 10:52:52 9.5 8.4-10.2 ( mg/dL) Final Performing Location [facility] [place] [address] [place] [address]
--- OUTSIDE RECORDS SUMMARY | 2023-12-01 04:11 | External Medical Summary | Summary of Care ---
Author Name Unknown Organization [facility] Address [address] [place] [address] Phone [phone] Care Team Providers Care Chemical Plant Worker Name Role Phone Claire Gabriel DO Primary Care Provider [phone] Reason for Referral * Evaluate & Treat - Unlimited Visits (Within 10 days (routine)) - Authorized Specialty Diagnoses / Procedures Referred By Contact Referred To Contact Cardiac Electrophysiology / Cardiology Diagnoses Bradycardia Claire Gabriel DO [address] [place] [address] Tara Villarreal DO [address] [place] [address] Referral ID Status Reason Start Date Expiration Date Visits Requested Visits Authorized [id number] Authorized Specialty Services Required 07/21/2023 999 999 Question Answer Referral Priority Within 10 days (routine) Where should this appointment be scheduled? [facility] Reason for Visit * Reason Comments Follow Up Encounter Details Date Type Department Care Team (Latest Contact Info) Description 07/21/2023 9:30 AM EST Office Visit [facility] [address] [place] [address] Claire Gabriel DO [address] [place] [address] Hypothyroidism due to acquired atrophy of thyroid*; HTN, goal below 140/90; Diabetes mellitus with stage 3 chronic kidney disease (HCC); DM type 2 with diabetic peripheral neuropathy (HCC); Bradycardia; Dyslipidemia, goal LDL below 70 Allergies Active [...] Sign Reading Time Taken Comments Blood Pressure 130/56 07/21/2023 9:37 AM EST Pulse 49 07/21/2023 9:37 AM EST Temperature 36.4 C (97.5 F) 07/21/2023 9:37 AM ES T Respiratory Rate 17 07/21/2023 9:37 AM EST Oxygen Saturation 96% 07/21/2023 9:37 AM EST Inhaled Oxygen Concentration - - Weight 85.9 kg (189 lb 4.8 oz) 07/21/2023 9:37 A M EST Height - - Body Mass Index 32.75 03/08/2023 2:25 PM EDT documented in this encounter Progress Notes * Claire Gabriel, DO - 07/21/2023 10:13 AM EST Subjective: Rosalind Morrison is a 78 year old female. Chief Complaint Patient presents with Follow Up HPI: 78 year old female here today for a medication checkup. She is feeling well. Has htn, diabetes type 2 , and needs labs today. On meds as listed. Taking lisinopril 1 time per day. She never did arrange EP visit. She has asymptomatic bradycardia.KRISTEN reviewed. Norma Mares reviewed,and suggested EP visit, this was never arranged. Will placed referral today. She is willing. No syncope. PHM: Patient Active Problem List Diagnosis Code Metabolic syndrome E88.810 ADVANCE DIRECTIVE INFORMATION Hypothyroidism due to acquired atrophy of thyroid E03.4 Dyslipidemia, goal LDL below 70 E78.5 Chronic sinusitis J32.9 HTN, goal below 140/90 I10 DM type 2 with diabetic peripheral neuropathy (HCC) E11.42 Diabetes mellitus with stage 3 chronic kidney disease (HCC) E11.22, N18.30 Current Outpatient Medications Medication Sig Dispense Refill [...] Tablet Take by mouth 2 Tablets . linaGLIPtin 5 MG Oral Tablet (Tradjenta) Take 1 Tablet by mouth in the morning. 30 Tablet 11 Levothyroxine Sodium 75 MCG Oral Tablet TAKE 1 TABLET BY MOUTH ONCE DAILY AT LEAST 30 MINUTES BEFORE BREAKFAST OR OTHER MEDICATIONS 90 Tablet 3 OneTouch Ultra Control In Vitro Solution Use as directed. 1 Each 0 OneTouch UltraSoft Lancets Use up to four times a day as directed ( delica) 250.00 100 Each 10 Icosapent Ethyl 1 GM Oral Capsule (Vascepa) TAKE 2 CAPSULES BY MOUTH WITH BREAKFAST AND 2 WITH EVENING MEAL DO NOT CUT, CRUSH, OR CHEW 120 Capsule 11 OneTouch Ultra In Vitro Strip (Glucose Blood) USE TO CHECK BLOOD GLUCOSE FOUR TIMES DAILY 400 Strip0 Gemfibrozil 600 MG Oral Tablet (Lopid) TAKE 1 TABLET BY MOUTH TWICE DAILY 30 MIN BEFORE MORNING ANDEVENING MEAL 180 Tablet 1 Rosuvastatin Calcium 5 MG Oral Tablet (Crestor) Take 1 Tablet by mouth in the morning. 90 Tablet 3 Jardiance 25 MG Oral Tablet (Empagliflozin) Take 1 tablet by mouth once daily 90 Tablet 1 amLODIPine Besylate 2.5 MG Oral Tablet (Norvasc) Take 1 Tablet by mouth in the morning. 90 Tablet 2 glipiZIDE ER 2.5 MG Oral Tablet Extended Release 24 Hour (Glucotrol XL) Take 1 Tablet by mouth in the morning. 90 Tablet 1 Lisinopril-hydroCHLOROthiazide 20-25 MG Oral Tablet Take 1 Tablet by mouth in the morning and 1 Tablet before bedtime. 180 Tablet 1 Pregabalin 300 MG Oral Capsule (Lyrica) Take 1 Capsule by mouth in the morning and 1 Capsule beforebedtime. 60 Capsule 5 No current facility-administered medications for this visit. Review of patient's allergies indicates: Allergen Reactions Byetta [Exenatide] Hives Victoza [Liraglutide] Hives Objective: BP 130/56 | Pulse 49 | Temp 36.4 C (97.5 F) | Resp 17 | Wt 85.9 kg (189 lb 4.8 oz) | SpO2 96% |BMI 32.75 kg/m | BSA 1.97 m Physical Exam: General: alert, healthy, and no distress Heart: no murmur, no gallops, and bradycardia Lungs: chest symmetric with normal AP diameter, no chest deformities noted, no chest wall tenderness, lungs clear to auscultation Abdomen: abdomen soft, non-tender, normal bowel sounds, and no masses or organomegaly Extremities: no edema ASSESSMENT/PLAN: Hypothyroidism due to acquired atrophy of thyroid (Primary) HTN, goal below 140/90 - BASIC METABOLIC PANEL; Future; Expected date: 07/21/2023 Diabetes mellitus with stage 3 chronic kidney disease (HCC) - HEMOGLOBIN A1C; Future; Expected date: 07/21/2023 DM type 2 with diabetic peripheral neuropathy (HCC) Bradycardia - ELECTROPHYSIOLOGY REFERRAL OP Dyslipidemia, goal LDL below 70 - HEPATIC FUNCTION PANEL; Future; Expected date: 07/21/2023 Follow Up: Return in about 3 months (around 10/20/2023) for Labs Today. | For: Labs Today | Check-outnote: Needs appt with [facility] Martines either [facility] or meaghan joseph. Claire Gabriel DO documented in this encounter Nursing Notes * Iman Delgadillo LPN - 07/21/2023 9:41 AM EST The patient has been properly identified by confirmation of name and date of . Chief Complaint Patient presents with Follow Up documented in this encounter Plan of Treatment Upcoming Encounters Date Type Department Care Team (Late st Contact Info) Description 09/03/2023 12:45 PM EST Office Visit Cardiology, [facility] [address] [facility] [place] [address] Tara Villarreal DO [address] [facility] [place] [address] 09/24/2023 2:00 PM EST Office Visit Cardiology, [facility] [address] [facility] [place] [address] Deirdre Mares PA-C [address] [facility] [place] [address] 11/11/2023 8:30 AM EDT Office Visit Family Practice, [place] [address] [place] [facility] [address] Claire Gabriel DO [address] [place] [address] 03/09/2024 2:00 PM EDT Nurse Only Ancillary Department, [place] [address] [place] [address] [place], Nurse [facility] [address] [place] [address] Pending Results Name Type Priority Associated Diagnoses Date /Time BASIC METABOLIC PANEL Lab Routine HTN, goal below 140/90 07/21/2023 10:52 AM EST HEMOGLOBIN A1C Lab Routine Diabetes mellitus with stage 3 chronic kidney disease (HCC) 07/21/2023 10:52 AM EST HEPATIC FUNCTION PANEL Lab Routine Dyslipidemia, goal LDL below 70 07/21/2023 10:52 AM EST Scheduled Orders Name Type Priority Associated Diagnoses Orde r Schedule BASIC METABOLIC PANEL Lab Routine HTN, goal below 140/90 Expected: 07/21/2023 (Approximate), Expires: 07/20/2024 HEMOGLOBIN A1C Lab Routine Diabetes mellitus with stage 3 chronic kidney disease (HCC) Expected: 07/21/2023 (Approximate), Expires: 07/20/2024 HEPATIC FUNCTION PANEL Lab Routine Dyslipidemia, goal LDL below 70 Expected: 07/21/2023 (Approximate), Expires: 07/20/2024 Scheduled Procedures Name Priority Associated Diagnoses Date/Ti [...] Additional history exists CKD HGB USE SMARTSET 99879 09/17/202309/17, 09/04/2021, 04/09/2021, Additional history exists CKD PHOS USE SMARTSET 62505 09/17/2023 02/0 09/2022, 12/13/2020, 03/31/2018, Additional history exists Diabetic Foot Exam 09/17/2023 09/17/2022, 0 09/03/2021, 11/20/2020, Additional history exists Diabetic Eye Exam 10/01/2023 10/01/2022, , 10/02/2020, Additional history exists GFR 10/08/2023 04/07/2023, 12/14, 09/14/2022, Additional history exists HbA1c 10/08/2023 04/07/2023, 051 , 09/14/2022, Additional history exists DXA Scan 11/10/2023 11/09/2016 TSH 12/24/2023 12/23/2022, 02/0 09/2022, 08/26/2021, Additional history exists Depression Screening [...] as of this encounter Visit Diagnoses Diagnosis Hypothyroidism due to acquired atrophy of thyroid- Primary HTN, goal below 140/90 Unspecified essential hypertension Diabetes mellitus with stage 3 chronic kidney disease (HCC) Type II or unspecified type diabetes mellitus with renal manifestations, not stated as uncontrolled DM type 2 with diabetic peripheral neuropathy (HCC) Type II or unspecified type diabetes mellitus with neurological manifestations, not stated as uncontrolled Bradycardia Other specified cardiac dysrhythmias Dyslipidemia, goal LDL below 70 Other and unspecified hyperlipidemia documented in this encounter Care Teams Chemical Plant Worker Relationship Specialty Start Date End Date Claire Gabriel DO [address] [place] [address] PCP - General Family Medicine 11/06/19 documented as of this encounter"
--- OUTSIDE RECORDS SUMMARY | 2023-12-01 04:11 | External Medical Summary | Summary of Care ---
Author Name Unknown Organization [facility] Address [address] [place] [address] Phone [phone] Care Team Providers Care Cripple Chaser Name Role Phone Gary Meng DO Primary Care Provider Reason for Visit * Reason Comments eRx-Medication Refill Encounter Details Date Type Department Care Team (Late st Contact Info) Description 08/01/2023 Refill [facility] [address] [place] [address] Gary Meng DO [address] [place] [address] Diabetes mellitus with stage 3 chronic kidney disease (HCC) Allergies Active Allergy Reactions Criticality Noted Date Comments Exenatide Hives Medium 05/04/2016 Liraglutide Hives Medium 09/27/2014 documented as of this encounter (statuses as of 08/02/2023) Medications Medication Sig Dispensed Refills Start Date [...] 0 Active Levothyroxine Sodium 75 MCG Oral TabletIndications:A cquired hypothyroidism TAKE 1 TABLET BY MOUTH ONCE DAILY AT LEAST 30 MINUTES BEFORE BREAKFAST OR OTHER MEDICATIONS 90 Tablet 3 3 Active OneTouch Ultra Control In Vitro Solution [...] TIMES DAILY 400 Strip 0 3 Active Gemfibrozil 600 MG Oral Tablet (Lopid) TAKE 1 TABLET BY MOUTH TWICE DAILY 30 MIN BEFORE MORNING AND EVENING MEAL 180 Tablet 1 3 Active Rosuvastatin Calcium 5 MG Oral [...] THE MORNING 90 Tablet 2 3 Active linaGLIPtin 5 MG Oral Tablet (Tradjenta)Indicati ons:Diabetes mellitus with stage 3 chronic kidney disease (HCC) Take 1 Tablet by mouth in the morning. 30 Tablet 11 3 08/02/20 23 Discontinued documented as of this encounter (statuses as of 08/02/2023) Active Problems Problem Noted Date Diagnosed Date [...] as of this encounter (statuses as of 08/02/2023) Resolved Problems Problem Noted Date Diagnosed Date [...] as of this encounter (statuses as of 08/02/2023) Immunizations Name Administration Dates Next Due COVID-19 [...] encounter Miscellaneous Notes * Telephone Encounter - Brittani Casillas [facility] - 08/02/2023 11:40 AM ESTSigned Prescriptions: Disp Refills Tradjenta 5 MG Oral Tablet (linaGLIPtin) 90 Tab*2 Sig: TAKE 1 TABLET BY MOUTH IN THE MORNINGAuthorizing Provider: GARY MENG User: BRITTANI CASILLAS- documented in this encounter Plan of Treatment Upcoming Encounters Date Type Department Care Team (Late st Contact Info) Description 09/03/2023 12:45 PM EST Office Visit Cardiology, [facility] [address] [facility] [place] [address] Tara Villarreal, DO [address] [place] [address] 09/24/2023 2:00 PM EST Office Visit Cardiology, [facility] [address] [facility] [place] [address] Deirdre Mares PA-C [address] [facility] [place] [address] 11/11/2023 8:30 AM EDT Office Visit [facility], [place] [address] [facility] [id number] Gary Meng, [address] [facility] [address] 03/09/2024 2:00 PM EDT Nurse Only Ancillary Department, [place] [address] [facility] [address] [place], Nurse [facility] [address] [place] [facility] [place] [address] Scheduled Procedures Name Priority Associated Diagnoses Date/Ti me COLONOSCOPY FLEXIBLE PROXIMA L DIAGNOSTIC Recall Benign neoplasm of colon Health Maintenance Due Date Last Done Comments Hepatitis B (1 of 3 - Risk 3-dose series) 2007 DTaP,Tdap,and Td Vaccines (2 - Td or Tdap) 07/28/2020 07/28/2010, 06/06/1999 Albumin/Creatinine Ratio 09/17/2023 023, 10/13/2021, 11/06/2019, Additional history exists CKD HGB USE SMARTSET 21244 09/17/202309/17, 09/04/2021, 04/09/2021, Additional history exists CKD PHOS USE SMARTSET 76638 09/17/2023 02/0 09/2022, 12/13/2020, 03/31/2018, Additional history [...] with renal manifestations, not stated as uncontrolled documented in this encounter Care Teams Cripple Chaser Relationship Specialty Start Date End Date Gary Meng DO [address] [place] [address] PCP - General Family Medicine 11/06/19 documented as of this encounter
--- OUTSIDE RECORDS SUMMARY | 2023-12-01 04:11 | External Medical Summary | Summary of Care ---
Author Name Unknown Organization [facility] Address [address] [place] [address] Phone [phone] Care Team Providers Care Social Insurance Analyst Name Role Phone Gary Meng DO Primary Care Provider [phone] Reason for Visit * Reason Comments eRx-Medication Refill Encounter Details Date Type Department Care Team (Late st Contact Info) Description 08/26/2023 Refill [facility] [address] [place] [address] Gary Meng DO [address] [place] [address] Allergies Active Allergy Reactions Criticality Noted Date Comments Exenatide Hives Medium 05/04/2016 Liraglutide Hives Medium 09/27/2014 documented as of this encounter (statuses as of 08/27/2023) Medications Medication Sig Dispensed Refills Start Date [...] EVENING MEALS 180 Tablet 1 4 Active Gemfibrozil 600 MG Oral Tablet (Lopid) TAKE 1 TABLET BY MOUTH TWICE DAILY 30 MIN BEFORE MORNING AND EVENING MEAL 180 Tablet 1 3 08/27/19 24 Discontinued documented as of this encounter (statuses as of 08/27/2023) Active Problems Problem Noted Date Diagnosed Date [...] as of this encounter (statuses as of 08/27/2023) Resolved Problems Problem Noted Date Diagnosed Date [...] as of this encounter (statuses as of 08/27/2023) Immunizations Name Administration Dates Next Due COVID-19 [...] Notes * Telephone Encounter - Bianca Gallo, [facility] - 08/27/2023 8:46 AM ESTSigned Prescriptions: Disp Refills Gemfibrozil 600 MG Oral Tablet (Lopid) 180 Ta*1 Sig: TAKE 1 TABLET BY MOUTH TWICE DAILY 30 MINUTES BEFORE THE MORNING AND EVENING MEALSAuthorizing Provider: GARY MENG User: BIANCA GALLO documented in this encounter Plan of Treatment Upcoming Encounters Date Type Department Care Team (Late st Contact Info) Description 09/03/2023 12:45 PM EST Office Visit Cardiology, [facility] [address] [facility] [place] [address] Tara Villarreal, [address] [place] [address] 09/24/2023 2:00 PM EST Office Visit Cardiology, [facility] [address] [facility] [place] [address] Deirdre Mares PA-C [address] [facility] [place] [address] 11/11/2023 8:30 AM EDT Office Visit Family [facility], [place] [address] [facility] [phone] Gary Meng, DO [address] [facility] [address] 03/09/2024 2:00 PM EDT Nurse Only Ancillary Department, [place] [address] [facility] [address] [place], Nurse [facility] [address] [place] [facility] [facility] [place] [address] Scheduled Procedures Name Priority Associated Diagnoses Date/Ti me COLONOSCOPY FLEXIBLE PROXIMA L DIAGNOSTIC Recall Benign neoplasm of colon Health Maintenance Due Date Last Done Comments Hepatitis B (1 of 3 - Risk 3-dose series) 2007 DTaP,Tdap,and Td Vaccines (2 - Td or Tdap) 07/28/2020 07/28/2010, 06/06/1999 Albumin/Creatinine Ratio 09/17/2023 023, 10/13/2021, 11/06/2019, Additional history exists CKD HGB USE SMARTSET 34883 09/17/202309/17, 09/04/2021, 04/09/2021, Additional history exists CKD PHOS USE SMARTSET 94294 09/17/2023 02/0 09/2022, 12/13/2020, 03/31/2018, Additional history [...] filedocumented as of this encounter Care Teams Social Insurance Analyst Relationship Specialty Start Date End Date Gary Meng DO [address] [place] [address] PCP - General Family Medicine 11/06/19 documented as of this encounter
--- OUTSIDE RECORDS SUMMARY | 2023-12-01 04:11 | External Medical Summary | Summary of Care ---
Author Name Unknown Organization [facility] Address [address] [place] [address] Phone [phone] Care Team Providers Care Rattlesnake Farmer Name Role Phone Bartolomecarey Claire Murphy LIU Primary Care Provider [phone] Encounter Details Date Type Department Care Team (Late st Contact Info) Description 08/17/2023 Orders Only Outcomes Research Department [address] [place] [address] Carla Alaniz CHRA [employer] Research Other*[id number] Allergies Active Allergy Reactions Criticality Noted Date Comments Exenatide Hives Medium 05/04/2016 Liraglutide Hives Medium 09/27/2014 documented as of this encounter (statuses as of 08/17/2023) Medications Medication Sig Dispensed Refills Start Date [...] as directed. 1 Each 0 10/28/2022 Active G-modeTouch UltraSoft Lancets Use up to four times a day as directed ( delica) 250.00 100 Each 10 01/13/2023 Active Icosapent Ethyl 1 GM Oral Capsule (Vascepa) TAKE 2 CAPSULES BY MOUTH WITH BREAKFAST AND 2 WITH EVENING MEAL DO NOT CUT, CRUSH, OR CHEW 120 Capsule 11 01/19/2023 Active G-modeTouch Ultra In Vitro Strip (Glucose Blood) USE [...] THE MORNING 90 Tablet 2 08/02/2023 Active documented as of this encounter (statuses as of 08/17/2023) Active Problems Problem Noted Date Diagnosed Date [...] as of this encounter (statuses as of 08/17/2023) Resolved Problems Problem Noted Date Diagnosed Date [...] as of this encounter (statuses as of 08/17/2023) Immunizations Name Administration Dates Next Due COVID-19 [...] 09/03/2023 12:45 PM EST Office Visit Cardiology, [facility] [address] [facility] [place] [address] Tara Villarreal, DO [address] [facility] [place] [address] 09/24/2023 2:00 PM EST Office Visit Cardiology, [facility] [address] [facility] [place] [address] Deirdre Mares PA-C [address] [facility] [place] [address] 11/11/2023 8:30 AM EDT [address] [address] Claire Gabriel, [address] [facility], [place] [address] 03/09/2024 2:00 PM EDT Nurse Only Ancillary Department, [place] [address] [facility] [place] [address] [place], Nurse [facility] [address] [facility] [place] [address] Scheduled Orders Name Type Priority Associated Diagnoses Orde r Schedule MYCODE SUBSEQUENT ADULT Lab Routine My[employer] Research Other*[id number] Every 6 Months for 2 Occurrences starting 08/17/2023 until 09/05/2024 Scheduled Procedures Name Priority Associated Diagnoses Date/Ti me COLONOSCOPY FLEXIBLE PROXIMA L DIAGNOSTIC Recall Benign neoplasm of colon Health Maintenance Due Date Last Done Comments Hepatitis B (1 of 3 - Risk 3-dose series) 2007 DTaP,Tdap,and Td Vaccines (2 - Td or Tdap) 07/28/2020 07/28/2010, 06/06/1999 Albumin/Creatinine Ratio 09/17/2023 023, 10/13/2021, 11/06/2019, Additional history exists CKD HGB USE SMARTSET 74453 09/17/202309/17, 09/04/2021, 04/09/2021, Additional history exists CKD PHOS USE SMARTSET 36263 09/17/2023 02/0 09/2022, 12/13/2020, 03/31/2018, Additional history [...] this encounter Visit Diagnoses Diagnosis [employer] Other*[id number] documented in this encounter Care Teams Rattlesnake Farmer Relationship Specialty Start Date End Date Claire Gabriel DO [address] [facility] [place] [address] PCP - General Family Medicine 11/06/19 documented as of this encounter
--- OUTSIDE RECORDS SUMMARY | 2023-12-01 04:11 | External Medical Summary ---
Author Name Unknown Address Unknown Organization K01[place] [place] [address] [place] [address] Laboratory Report Ordering Provider Test Date Status TAQUERIA VEGA 07/21/2023 10:52:52 Final Observation Date Value Abnormality Reference (Units ) Status Albumin 07/21/2023 10:52:52 5.0 3.8-5.0 (g/dL) Final AST (Aspartate aminotransferase) 07/21/2023 10:52:52 30 10-35 (U/L) Final Alk Phos 07/21/2023 10:52:52 56 35-130 (U/L) Final ALT (Alanine aminotransferase) 07/21/2023 10:52:52 11 10-35 (U/L) Final Bilirubin, Total 07/21/2023 10:52:52 0.3 <=1.2 (mg/dL) Final Bilirubin, Direct 07/21/2023 10:52:52 <0.2 0.0-0.3 (mg/dL) Final Protein 07/21/2023 10:52:52 7.5 6.0-8.3 (g/dL) Final Performing Location [facility] [place] [address] [place] [address]
--- OUTSIDE RECORDS SUMMARY | 2023-12-01 04:12 | External Medical Summary | Summary of Care ---
Author Name Unknown Organization [facility] Address [address] [place] [address] Phone [phone] Care Team Providers Care Senior Cobol Developer Name Role Phone Claire Gabriel DO Primary Care Provider Encounter Details Date Type Department Care Team (Late st Contact Info) Description 07/16/2023 Orders Only [facility] [address] [place] [address] Claire Gabriel DO [address] [place] [address] Allergies Active Allergy Reactions Criticality Noted Date Comments Exenatide Hives Medium 05/04/2016 Liraglutide Hives Medium 09/27/2014 documented as of this encounter (statuses as of 07/16/2023) Medications Medication Sig Dispensed Refills Start Date [...] as of this encounter (statuses as of 07/16/2023) Active Problems Problem Noted Date Diagnosed Date [...] as of this encounter (statuses as of 07/16/2023) Resolved Problems Problem Noted Date Diagnosed Date [...] as of this encounter (statuses as of 07/16/2023) Immunizations Name Administration Dates Next Due COVID-19 [...] (Prevnar) 08/20/2014 Pneumococcal Polysaccharide PPV23 (Pneumovax) 11/02/2016,02/10/2006 SEASONAL INFLUENZA, PF, 6 M & Above, [...] Care Team (Late st Contact Info) Description 08/05/2023 8:50 AM EST Office Visit [facility], [place] [address] [facility] [phone] Claire Gabriel DO [address] [place] [address] 09/24/2023 2:00 PM EST Office Visit Cardiology, [facility] [address] [address] Deirdre Mares PA-C [address] [address] 03/09/2024 2:00 PM EDT Nurse Only Ancillary Department, [place] [address] [facility] [place] [address] Eduarda, Nurse [facility] [address] [place] [address] Pending Results Name Type Priority Associated Diagnoses Date /Time MAMMOGRAM SCREENING BILATERAL Medical Imaging Routine 07/15/2023 Scheduled Procedures Name Priority Associated Diagnoses Date/Ti me COLONOSCOPY FLEXIBLE PROXIMA L DIAGNOSTIC Recall Benign neoplasm of colon Health Maintenance Due Date Last Done Comments Hepatitis B (1 of 3 - Risk 3-dose series) 2007 DTaP,Tdap,and Td Vaccines (2 - Td or Tdap) 07/28/2020 07/28/2010, 06/06/1999 Albumin/Creatinine Ratio 09/17/2023 023, 10/13/2021, 11/06/2019, Additional history exists CKD HGB USE SMARTSET 26373 09/17/202309/17, 09/04/2021, 04/09/2021, Additional history exists CKD PHOS USE SMARTSET 01985 09/17/2023 02/0 09/2022, 12/13/2020, 03/31/2018, Additional history exists Diabetic Foot Exam 09/17/2023 09/17/2022, 0 09/03/2021, 11/20/2020, Additional history exists Diabetic Eye Exam 10/01/2023 10/01/2022, , 10/02/2020, Additional history exists GFR 10/08/2023 04/07/2023, 05/1 , 09/14/2022, Additional history exists HbA1c 10/08/2023 04/07/2023, 051 , 09/14/2022, Additional history exists DXA Scan 11/10/2023 11/09/2016 TSH 12/24/2023 12/23/2022, 0209/2022, 08/26/2021, Additional history exists Depression Screening 03/08/2024 [...] as of this encounter Care Teams Senior Cobol Developer Relationship Specialty Start Date End Date Claire Gabriel DO [address] [place] [address] PCP - General Family Medicine 11/06/19 documented as of this encounter
--- NOTE | 2023-12-01 04:44 | History & Physical Report ---
Date of Service December 01, 2023 Assessment & Plan (1) Rapid atrial fibrillation: Plan: 78-year-old female with past medical history significant for type 2 diabetes, metabolic syndrome, hypothyroidism, hyperlipidemia, CKD stage III, chronic sinusitis, hypertension, sinus bradycardia, right bundle branch block presents with palpitations and found to be in rapid A-fib. Patient states around 10 PM she felt fluttering in her heart when she checked her pulse rate it was in the 150s. Usually heart rates are low. She felt mild chest discomfort. [place] somewhat hot. No shortness of breath or dizziness. No nausea. No headache. No runny nose or sore throat. No cough. No fevers. No abdominal pain. Normal bowel and bladder movements. Denies any blood in stools. Otherwise active. Patient on routine check in September was found to be have bradycardia. Heart rate in the 40s. She had Holter as outpatient which showed no significant symptomatic bradycardia events or pauses. She followed with EP because of underlying conduction system disease there is plan for pacemaker. She has appointment on December 14. Because of her recent 's back surgery things were delayed. In the ER she was started on Cardizem drip. Currently heart rates in the 80s. Resting comfortably. Rapid A-fib New onset History of bradycardia with underlying conduction disease Tachybradycardia syndrome Er started on Cardizem drip and heart rates improved to 80s Had an episode of bradycardia in 30s and recovered Will stop the Cardizem drip Close monitor Started on IV heparin Follow labs , serial ce and echo Telemetry N.p.o. for now As currently she is having on and off bradycardia will hold AV blocking agents for now and placed pacer pads on Cardiology consult for further recommendations Diabetes Hold home p.o. medications Sliding scale Will monitor Hypothyroidism On Synthyroid TSH is okay Hypertension On amlodipine, lisinopril hydrochlorothiazide We will monitor Hyperlipidemia On statin ,icosapent ethyl and gemfibrozil CKD stage III Baseline creatinine 1.2 Present creatinine 1.3 Follow repeat labs DVT prophylaxis IV heparin Disposition Telemetry Full code History of Present Illness Chief Complaint: Rapid A-fib Primary Care Provider: Clarie Gabriel DO 78-year-old female with past medical history significant for type 2 diabetes, metabolic syndrome, hypothyroidism, hyperlipidemia, CKD stage III, chronic sinusitis, hypertension, sinus bradycardia, right bundle branch block presents with palpitations and found to be in rapid A-fib. Patient states around 10 PM she felt fluttering in her heart when she checked her pulse rate it was in the 150s. Usually heart rates are low. She felt mild chest discomfort. [place] somewhat hot. No shortness of breath or dizziness. No nausea. No headache. No runny nose or sore throat. No cough. No fevers. No abdominal pain. Normal bowel and bladder movements. Denies any blood in stools. Otherwise active. Patient on routine check in September was found to be have bradycardia. Heart rate in the 40s. She had Holter as outpatient which showed no significant symptomatic bradycardia events or pauses. She followed with EP because of underlying conduction system disease there is plan for pacemaker. She has appointment on December 14. Because of her recent 's back surgery things were delayed. In the ER she was started on Cardizem drip. Currently heart rates in the 80s. Resting comfortably. Past medical history. As mentioned above Past surgical history. Colonoscopy. Social history. . No smoking. No alcohol use. No drug use. Family history. Mother had pancreatic cancer. Hypertension. Sister has diabetes. NE. Hypertension. Brother has CABG in 50s. Father of massive NE at age 55. Allergies Allergy/AdvReac Type Severity Reaction Status Date / Time exenatide [From Byetta] Allergy Intermediate NAUSEA, Verified 12/01/23 02:01 RASH liraglutide [From Victoza] Allergy Intermediate RASH Verified 12/01/23 02:01 Home Medications Medication Instructions Recorded Confirmed Type amlodipine 2.5 mg tablet 2.5 mg PO QA 09/18/19 12/01/23 History empagliflozin 25 mg tablet 25 mg PO QA 09/18/19 12/01/23 History (Jardiance) levothyroxine 75 mcg tablet 75 mcg PO DAILYBB 09/18/19 12/01/23 History (Levo-T) lisinopril 20 1 tab PO QAM 09/18/19 12/01/23 History mg-hydrochlorothiazide 25 mg tablet rosuvastatin 5 mg tablet (Crestor) 5 mg PO QAM 09/18/19 12/01/23 History coenzyme Q10 100 mg capsule (Co 200 mg PO QA 04/02/21 12/01/23 History Q-10) gemfibrozil 600 mg tablet (Lopid) 600 mg PO BIDM 04/02/21 12/01/23 History pregabalin 300 mg capsule (Lyrica) 300 mg PO BID 04/02/21 12/01/23 History glipizide 2.5 mg tablet, extended 2.5 mg PO QAM 04/16/21 12/01/23 History release 24 hr biotin 1 mg tablet 1 mg PO QAM 09/03/21 12/01/23 History aspirin 81 mg tablet,delayed 81 mg PO HS 09/08/21 12/01/23 History release (Adult Aspirin Regimen) icosapent ethyl 1 gram capsule 2 g PO BIDM 11/24/22 12/01/23 History (Vascepa) amoxicillin 500 mg tablet 2,000 mg PO DIRECTED PRN 1 HR 12/01/23 12/01/23 Hi story PRIOR TO DENTAL PROCEDURES linagliptin 5 mg tablet (Tradjenta) 5 mg PO QAM 12/01/23 12/01/23 History udamflcy-hbe-nkfxs ac 400 1 tab PO DAILY 12/01/23 12/01/23 History mcg-calcium carb 500 mg-vit K1 20 mcg tablet (Women's 50 Plus Multivitamin) vitamin B complex-folic acid 0.4 1 tab PO DAILY 12/01/23 12/01/23 History mg tablet (B Complex 1 (with folic acid)) Past Med/Surg History Medical History Diabetes mellitus, type 2 Encounter for pre-operative examination Hyperlipidemia Hypertension Hypothyroidism Michelle's neuroma of left foot Peripheral neuropathy RBBB Surgical History History of appendectomy History of cholecystectomy History of colonoscopy History of tooth extraction Family History Grandfather (Maternal) Throat cancer Aunt Diabetes Breast cancer Father Myocardial infarction Other No family history of adverse response to anesthesia Denies family history of Ovarian cancer Prostate cancer Colorectal cancer Social History Smoking Status: Never smoker Second Hand Exposure: No; Do You Dip or Chew Tobacco: No; Hx Alcohol Use: No Hx Substance Use: No Preferred Language: Grenadian Communication Ability: Effective Capacitor Tester Required: No Beliefs That Will Affect Care: None marital status: Current Living Situation: Spouse Feels Safe at Home: Yes Assistive Devices: Walker Review of Systems Review of Systems: All systems reviewed & are unremarkable except as noted in HPI & below Physical Exam Physical Exam: General- Not in distress Head- atraumatic Eyes- PERRL. ENT- oropharynx clear Neck- supple, no JVD. Lungs- clear to auscultation no wheezing or crackles. Heart- irregular rhythm; no murmur, no gallop Abdomen- normal bowel sounds, soft, nontender, no distension Extremities- no pretibial edema, no erythema seen Neuro- alert, oriented PERRL, no facial palsy; no dysarthria; moves extremities. Skin- warm & dry Results & Data Results & Data Vital Signs (Past 12 Hours) Vital Signs Temp Pulse Pulse Resp BP BP Pulse Ox 12/01/23 02:00 129 H 18 129/70 93 12/01/23 00:43 146 H 13 115/84 92 12/01/23 00:42 140 H 12/01/23 00:41 124 H 20 115/84 94 12/01/23 00:41 36.9 C 145 H 20 115/84 95 O2 Del Method 12/01/23 02:00 12/01/23 00:43 12/01/23 00:42 12/01/23 00:41 Room Air 12/01/23 00:41 Room Air Diagnostic Findings Laboratory Results WBC 4.01 K/ul (4.8-10.8) L 12/01/23 00:47 RBC 4.75 M/uL (4.20-5.40) 12/01/23 00:47 Hgb 14.2 g/dl (12.0-16.0) 12/01/23 00:47 Hct 40.5 % (37.0-47.0) 12/01/23 00:47 MCV 85.3 fL (80.0-100.0) 12/01/23 00:47 MCH 29.9 pg (25.0-34.0) 12/01/23 00:47 MCHC 35.1 g/dL (32.0-36.0) 12/01/23 00:47 RDW Std Deviation 42.5 fL (36.4-46.3) 12/01/23 00:47 RDW Coeff of Bala 13.6 % (11.5-14.5) 12/01/23 00:47 Plt Count 179 K/uL (130-400) 12/01/23 00:47 MPV 11.2 fL (9.4-12.4) 12/01/23 00:47 Immature Gran % (Auto) 0.2 % 12/01/23 00:47 Neut % (Auto) 45.7 % 12/01/23 00:47 Lymph % (Auto) 33.2 % 12/01/23 00:47 Allen % (Auto) 12.2 % 12/01/23 00:47 Eos % (Auto) 7.5 % 12/01/23 00:47 Baso % (Auto) 1.2 % 12/01/23 00:47 Neut # (Auto) 1.83 K/uL (1.40-6.50) 12/01/23 00:47 Lymph # (Auto) 1.33 K/uL (1.20-3.40) 12/01/23 00:47 Allen # (Auto) 0.49 K/uL (0.11-0.59) 12/01/23 00:47 Eos # (Auto) 0.30 K/uL (0.00-0.50) 12/01/23 00:47 Baso # (Auto) 0.05 K/uL (0.00-0.20) 12/01/23 00:47 Immature Gran # (Auto) 0.01 K/uL (0.01-0.20) 12/01/23 00:47 PT 10.9 Seconds (9.0-12.0) 12/01/23 00:47 INR 1.0 (0.9-1.1) 12/01/23 00:47 Sodium 139 mmol/L (136-145) 12/01/23 00:47 Potassium 3.5 mmol/L (3.5-5.1) 12/01/23 00:47 Chloride 106 mmol/L (98-107) 12/01/23 00:47 Carbon Dioxide 19 mmol/L (21-32) L 12/01/23 00:47 Anion Gap 14 (3-11) H 04 00:47 BUN 40 mg/dl (6-23) H 12/01/23 00:47 Creatinine 1.31 mg/dl (0.6-1.2) H 12/01/23 00:47 Est Cr Clr Drug Dosing 61.6 ml/min 04 00:47 Est GFR ( Amer) 45.7 ml/min 12/01/23 00:47 Est GFR (Non-Af Amer) 39.5 ml/min 12/01/23 00:47 BUN/Creatinine Ratio 30.5 (10-20) H 12/01/23 00:47 Glucose 152 mg/dl (70-99(Fasting)) H 12/01/23 00:47 Calcium 9.9 mg/dl (8.6-10.3) 12/01/23 00:47 Magnesium 2.4 mg/dl (1.7-2.4) 12/01/23 00:47 Total Bilirubin 0.3 mg/dl (0.2-1.0) 12/01/23 00:47 AST 21 U/L (13-39) 12/01/23 00:47 ALT 10 U/L (7-52) 04 00:47 Alkaline Phosphatase 57 U/L (34-104) 12/01/23 00:47 Troponin I High Sens 11.0 pg/ml (0-14) 12/01/23 00:47 Total Protein 8.5 gm/dl (6.0-8.3) H 12/01/23 00:47 Albumin 5.0 gm/dl (3.4-5.0) 12/01/23 00:47 Globulin 3.5 gm/dl (2.5-4.0) 12/01/23 00:47 Albumin/Globulin Ratio 1.4 (0.9-2) 12/01/23 00:47 TSH 1.918 uIu/ml (0.300-4.500) 12/01/23 00:47 ECG Additional Comments: ECG rapid A-fib with a rate of 141. Right bundle branch block. Left anterior fascicle block. Bifascicular block. Code Status & VTE Plan VTE Prophylaxis Plan VTE Prophylaxis will be ordered: Yes
[2023-12-01] MEDS ORDERED: GLUCOSE 10 TAB/TUBE PO PRN (05:29)
[2023-12-01] MEDS ORDERED: NITROGLYCERIN SL 0.4 MG/TAB TAB SL PRN (05:29)
[2023-12-01] MEDS ORDERED: Heparin IV Adult Wt-Based Standard *NO* INITIAL Bolus Protocol IV STA (05:29)
[2023-12-01] MEDS ORDERED: GLUCOSE 40% GEL 15 GM TUBE PO PRN (05:29)
[2023-12-01] MEDS ORDERED: CARBOHYDRATES FOR HYPOGLYCEMIA PO PRN (05:29)
[2023-12-01] MEDS ORDERED: POLYETHYLENE (MIRALAX) 17 GM PACK PO PRN (05:29)
[2023-12-01] MEDS ORDERED: GLUCAGON FOR INJ 1 MG VIAL SQ PRN (05:29)
[2023-12-01] MEDS ORDERED: DEXTROSE 50% 50 ML SYRINGE IV PRN (05:29)
[2023-12-01] MEDS: HEPARIN SODIUM/DEXTROSE 25,000 UNITS/500 ML BAG IV SCH (06:11)
[2023-12-01] MEDS: INSULIN ASPART PER UNIT CHARGE SC SCH ×2 (06:37→18:10)
[2023-12-01 07:34] LABS: BUN Creatinine Ratio 32.7 (10-20); Creatinine Clr Calc Pharmacy 44.4 ml/min; Est GFR (African American) 54.7 ml/min; Est GFR (Non-African American) 47.2 ml/min; Magnesium 2.3 mg/dl (1.7-2.4); Potassium 3.6 mmol/L (3.5-5.1)
--- NOTE | 2023-12-01 07:34 | Cardiology Consultation ---
Date of Consultation December 01, 2023 Assessment & Plan (1) Rapid atrial fibrillation: (2) Tachy-redd syndrome: Plan IMPRESSION: 78 year old female with history of SSS now with newly diagnosed PAF with RVR/TBS. Tele: On arrival AFIB 130s. Diltiazem gtt started, rates lowered to the 80s. Converted to SR/SB 40-50s at 05:54 am with 3.6 sec conversion pause. Now maintaining SR/AB on telemetry. Well compensated. PLAN: TBS + PAF RVR: Remain NPO for possible PPM implantation this afternoon. Avoid AVN blocking agent at this time given underlying bradycardia CHADSVASC score of 5 (age 4, Female, HTN, DM)-- IV heparin infusion for strok e prevention with AFIB K goal of 4.0 and mag goal of 2.0-- replace as needed Hs Troponin elevated: 11>>96.6, likely in the setting of demand with AFIB RVR. Will assess echo once results are available. Case discussed with Dr. Manuel. Further recommendations pending assessment. I spent a total of 40 minutes on the date of service in preparation, delivery, and documentation of the care provided to the patient excluding any time spent in the performance of separately billed services. BERE Pagan Department of Cardiology, [facility] This chart was completed in part utilizing Speech Voice Recognition Software. Grammatical errors, random word insertions, pronoun errors, and incomplete sentences are an occasional consequence of this system due to software limitations, ambient noise, and hardware issues. Any formal questions or concerns about the content, text, or information contained within the body of this dictation should be directly addressed to the provider for clarification. Supervising Physician Co-Signing Physician Notes Patient was seen and personally examined. Full care and plan as well outlined above by advanced provider. Care discussed and management plan personally endorsed 78-year-old female without prior history of atrial fibrillation but with known underlying conduction system disease and planned dual-chamber pacemaker. Patient presented with acute onset tachypalpitations with atrial fibrillation discerned on ER presentation. Patient treated with IV heparin and IV diltiazem with subsequent spontaneous conversion to marked sinus bradycardia. 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 as noted We will anticipate dual-chamber pacemaker insertion Hold heparin and anticoagulation until procedure performed Patient currently in sinus rhythm I spent a total of 30 minutes on the date of service in preparation, delivery, and documentation of the care provided to the patient in addition to above documented time History of Present Illness Reason for Consultation: AFIB RVR Requesting Physician: Stan vizcaino Attending Physician: Sindy Peterson MD History of Present Illness 78-year-old female presented to [facility] emergency department last evening around 10 pm due to symptoms of tachy-palpitations and rapid heart rates in the 150s. Normally heart rates are bradycardic and this alarmed her prompting ED evaluation. Symptoms included mild chest discomfort and a flushing feeling. EKG showing AFIB RVR 140 bpm. Started on Diltazem gtt in the ED with rates slowing into the 80s. This is a new finding for her. IV heparin started for stroke prevention. Echo: PENDING Labs: Renal function stable. Potassium low normal at 3.6. Mag 2.3. TSH normal. High-sensitivity troponin 11>>96. Tele: On arrival AFIB 130s. Diltiazem gtt started, rates lowered to the 80s. Converted to SR/SB 40-50s at 05:54 am with 3.6 sec conversion pause. Upon entrance into the room patient resting in bed. No acute concerns. Denies chest pain, shortness of breath, palpitations, dizziness, syncope or near syncope. No orthopnea, PND, or increased lower extremity edema. No fever, chills, cough, hematochezia, melena, or hemoptysis. She is known to Dr. Villarreal with plans for a ppm implantation on 12/15/2023 for SSS. Primary outpatient real estate professional: Dr. Manuel and also follows with Deirdre Mares PA-C. Past medical history: Sick sinus syndrome with marked sinus bradycardia and a first-degree AV block Right bundle branch block Hypertension Hyperlipidemia with elevated triglycerides, known statin intolerance Type 2 diabetes with neuropathy Hypothyroidism CKD stage III Familial history of coronary artery disease Allergies Allergy/AdvReac Type Severity Reaction Status Date / Time exenatide [From Byetta] Allergy Intermediate NAUSEA, Verified 12/01/23 02:01 RASH liraglutide [From Victoza] Allergy Intermediate RASH Verified 12/01/23 02:01 Home Medications Medication Instructions Recorded Confirmed Type amlodipine 2.5 mg tablet 2.5 mg PO QAM 09/18/19 12/01/23 History empagliflozin 25 mg tablet 25 mg PO QAM 09/18/19 12/01/23 History (Jardiance) levothyroxine 75 mcg tablet 75 mcg PO DAILYBB 09/18/19 12/01/23 History (Levo-T) lisinopril 20 1 tab PO QAM 09/18/19 12/01/23 History mg-hydrochlorothiazide 25 mg tablet rosuvastatin 5 mg tablet (Crestor) 5 mg PO QAM 09/18/19 12/01/23 History coenzyme Q10 100 mg capsule (Co 200 mg PO QAM 04/02/21 12/01/23 History Q-10) gemfibrozil 600 mg tablet (Lopid) 600 mg PO BIDM 04/02/21 12/01/23 History pregabalin 300 mg capsule (Lyrica) 300 mg PO BID 04/02/21 12/01/23 History glipizide 2.5 mg tablet, extended 2.5 mg PO QAM 04/16/21 12/01/23 History release 24 hr biotin 1 mg tablet 1 mg PO QAM 09/03/21 12/01/23 History aspirin 81 mg tablet,delayed 81 mg PO HS 09/08/21 12/01/23 History release (Adult Aspirin Regimen) icosapent ethyl 1 gram capsule 2 g PO BIDM 11/24/22 12/01/23 History (Vascepa) amoxicillin 500 mg tablet 2,000 mg PO DIRECTED PRN 1 HR 12/01/23 12/01/23 History PRIOR TO DENTAL PROCEDURES linagliptin 5 mg tablet (Tradjenta) 5 mg PO QAM 12/01/23 12/01/23 History ishtqost-dsl-lonsy ac 400 1 tab PO DAILY 12/01/23 12/01/23 History mcg-calcium carb 500 mg-vit K1 20 mcg tablet (Women's 50 Plus Multivitamin) vitamin B complex-folic acid 0.4 1 tab PO DAILY 12/01/23 12/01/23 History mg tablet (B Complex 1 (with folic acid)) Patient History Medical History Diabetes mellitus, type 2 Encounter for pre-operative examination Hyperlipidemia Hypertension Hypothyroidism Michelle's neuroma of left foot Peripheral neuropathy RBBB Surgical History History of appendectomy History of cholecystectomy History of colonoscopy History of tooth extraction Family History Grandfather (Maternal) Throat cancer Aunt Diabetes Breast cancer Father Myocardial infarction Other No family history of adverse response to anesthesia Denies family history of Ovarian cancer Prostate cancer Colorectal cancer Social History Smoking Status: Never smoker Second Hand Exposure: No; Do You Dip or Chew Tobacco: No; Tobacco Cessation Education Requested by Patient: No Hx Alcohol Use: No Hx Substance Use: No Preferred Language: Filipino Communication Ability: Effective Professor Of Anthropology Required: No Beliefs That Will Affect Care: None marital status: Current Living Situation: Spouse Other Information That Helps Us Care for You: No Feels Safe at Home: Yes Safety Concerns: Feels Safe At This Time Assistive Devices: None Review of Systems Review of Systems: All systems reviewed & are unremarkable except as noted in HPI & below Physical Exam Constitutional: well developed and well nourished; no acute distress Neck: normal visual inspection and trachea midline Respiratory: normal respiratory effort; no respiratory distress Cardiovascular: Rate/Rhythm: regular rhythm and + bradycardic Heart Sounds: normal S1 and normal S2 Vessels: no JVD Extremities: no edema Gastrointestinal (Abdomen): normal bowel sounds, soft, nontender, no hepatosplenomegaly Skin: no rashes, warm and dry Neurologic: PERRL, EOMI, accommodation nl, no face palsy, no dysarthria Psychiatric: A+Ox3, euthymic affect Results & Data Vital Signs (Past 12 Hours) Vital Signs Temp Pulse Pulse Resp BP BP Pulse Ox 12/01/23 07:05 50 L 18 137/64 98 12/01/23 07:01 46 L 12/01/23 06:06 12/01/23 05:01 24 L 12/01/23 04:48 36 L 12/01/23 04:37 88 12/01/23 02:00 129 H 18 129/70 93 12/01/23 00:43 146 H 13 115/84 92 12/01/23 00:42 140 H 12/01/23 00:41 124 H 20 115/84 94 12/01/23 00:41 36.9 C 145 H 20 115/84 95 Pulse Ox O2 Del Method O2 Del Method 12/01/23 07:05 Room Air 12/01/23 07:01 12/01/23 06:06 96 Room Air 12/01/23 05:01 12/01/23 04:48 12/01/23 04:37 12/01/23 02:00 12/01/23 00:43 12/01/23 00:42 12/01/23 00:41 Room Air 12/01/23 00:41 Room Air Laboratory Results Cardiac Enzymes 12/01/23 12/01/23 Range/Units 00:47 06:54 AST 21 (13-39) U/L Troponin I High Sens 11.0 96.6 H* D (0-14) pg/ml Coagulation 12/01/23 Range/Units 00:47 PT 10.9 (9.0-12.0) Seconds CBC 12/01/23 12/01/23 Range/Units 00:47 06:54 WBC 4.01 L 5.27 (4.8-10.8) K/ul RBC 4.75 4.43 (4.20-5.40) M/uL Hgb 14.2 13.3 (12.0-16.0) g/dl Hct 40.5 38.0 (37.0-47.0) % Plt Count 179 177 (130-400) K/uL Neut # (Auto) 1.83 3.37 (1.40-6.50) K/uL Lymph # (Auto) 1.33 1.14 L (1.20-3.40) K/uL Starke # (Auto) 0.49 0.45 (0.11-0.59) K/uL Eos # (Auto) 0.30 0.26 (0.00-0.50) K/uL Baso # (Auto) 0.05 0.04 (0.00-0.20) K/uL Comprehensive Metabolic Panel 12/01/23 12/01/23 Range/Units 00:47 06:54 Sodium 139 140 (136-145) mmol/L Potassium 3.5 3.6 (3.5-5.1) mmol/L Chloride 106 109 H (98-107) mmol/L Carbon Dioxide 19 L 23 (21-32) mmol/L BUN 40 H 37 H (6-23) mg/dl Creatinine 1.31 H 1.13 (0.6-1.2) mg/dl Glucose 152 H 166 H (70-99(Fasting)) mg/dl Calcium 9.9 9.0 (8.6-10.3) mg/dl AST 21 (13-39) U/L ALT 10 (7-52) U/L Alkaline Phosphatase 57 (34-104) U/L Total Protein 8.5 H (6.0-8.3) gm/dl Albumin 5.0 (3.4-5.0) gm/dl Intake and Output 11/30/23 12/01/23 12/01/23 22:59 06:59 14:59 Intake Total 13.667 / 13.667 583.333 / 583.333 Balance 13.667 / 13.667 583.333 / 583.333 Intake: IV 13.667 / 13.667 583.333 / 583.333 Sodium Chloride 0.9% 1,000 ml @ 583.333 / 583.333 125 mls/hr IV .Q8H [facility] Rx#: [id number] dilTIAZem HCL 125 mg In 13.667 / 13.667 Dextrose 5% 100 ml @ 5 MG/HR 5 mls/hr IV .Q24H [facility] Rx#: [id number] Other: Weight 84 kg 83.915 kg Weight Measurement Method Built in [facility] Stated by Patient Patient Weight 12/02/23 06:59 Weight 83.915 kg Diagnostic Findings Inpatient echo 12/01/2023 PENDING* ZIO report reviewed from March 2023: Patient had a min HR of 33 bpm, max HR of 116 bpm, and avg HR of 47 bpm. Predominant underlying rhythm was Sinus Rhythm. First Degree AV Block was present. Bundle Branch Block/IVCD was present. QRS morphology changes were present throughout recording. 1 run of Supraventricular Tachycardia occurred lasting 10 beats with a max rate of 116 bpm (avg 105 bpm). Isolated SVEs were rare (<1.0%), SVE Couplets were rare (<1.0%), and no SVE Triplets were present. Isolated VEs were rare (<1.0%), and no VE Couplets or VE Triplets were present. No patient marker or diary entries were submitted Echocardiogram report reviewed dated September 2022: Interpretation Summary The examination is adequate to evaluate the referral indication. There was sinus bradycardia during the examination. The LV wall thickness is mildly increased (concentric). The left ventricular wall motion is normal. Calculated LV ejection Fraction = 60% (three dimensional volumes). The aortic valve has three leaflets. Mild aortic valve sclerosis is present. Aortic stenosis is absent.
[2023-12-01 07:45] LABS: Basophils # (auto) 0.04 K/uL (0.00-0.20); Basophils % (auto) 0.8 %; Eosinophils # (auto) 0.26 K/uL (0.00-0.50); Eosinophils % (auto) 4.9 %; Hemoglobin 13.3 g/dl (12.0-16.0); Immature Granulocytes # (auto) 0.01 K/uL (0.01-0.20); Immature Granulocytes % (auto) 0.2 %; Lymphocytes # (auto) 1.14 K/uL (1.20-3.40); Lymphocytes % (auto) 21.6 %; Mean Corpuscular Volume 85.8 fL (80.0-100.0); Mean Platelet Volume 11.1 fL (9.4-12.4); Monocytes # (auto) 0.45 K/uL (0.11-0.59); Monocytes % (auto) 8.5 %; Neutrophils # (auto) 3.37 K/uL (1.40-6.50); Platelet Count 177 K/uL (130-400); RDW Coefficient of Variation 13.9 % (11.5-14.5); RDW Standard Deviation 43.2 fL (36.4-46.3); Red Blood Count 4.43 M/uL (4.20-5.40); White Blood Count 5.27 K/ul (4.8-10.8)
[2023-12-01 07:51] LABS: Troponin I High Sensitivity 96.6 pg/ml (0-14)
--- NOTE | 2023-12-01 08:01 | XRay Report ---
XR chest 1V portable HISTORY: palpitations COMPARISON: Chest 04/09/2021. FINDINGS: No pneumothorax. No pleural effusions. The heart remains mildly enlarged. No new focal lung consolidations to suggest a pneumonia. There is mild central pulmonary vascular congestion without o vert edema. IMPRESSION: Cardiomegaly and mild congestive change. ACT 112: Negative or not required by law. Electronically signed by: Derrick Branch M.D. 12/01/2023 8:00 AM
[2023-12-01] MEDS: POTASSIUM CHLORIDE CRTAB 20 MEQ TABCR PO STA (08:02)
[2023-12-01] MEDS: LEVOTHYROXINE SODIUM 75 MCG TABLET PO SCH (08:24)
[2023-12-01] MEDS: gemfibroziL 600 MG TAB PO SCH (10:35)
[2023-12-01] MEDS: VITAMIN B COMPLEX TAB PO SCH (10:36)
[2023-12-01] MEDS: amLODIPine BESYLATE 5 MG TAB PO SCH (10:37)
[2023-12-01] MEDS: LISINOPRIL/HCTZ 20/25MG 1 TAB PO SCH (10:37)
[2023-12-01] MEDS: PREGABALIN 150 MG CAP PO SCH (10:37)
[2023-12-01] MEDS: MULTIVITAMIN TAB PO SCH (10:37)
[2023-12-01] MEDS: ROSUVASTATIN CALCIUM 5 MG TAB PO SCH (10:37)
--- NOTE | 2023-12-01 10:43 | Electrocardiogram Report ---
Test Reason : Blood Pressure : / mmHG Vent. Rate : 141 BPM Atrial Rate : 000 BPM P-R Int : 000 ms QRS Dur : 144 ms QT Int : 314 ms P-R-T Axes : 000 -63 099 degrees QTc Int : 480 ms Atrial fibrillation with rapid ventricular response Right bundle branch block Left anterior fascicular block Bifascicular block Minimal voltage criteria for LVH, may be normal variant T wave abnormality, consider lateral ischemia Abnormal ECG When compared with ECG of 09-APR-2021 13:51, Atrial fibrillation has replaced Sinus rhythm Vent. rate has increased BY 91 BPM Left anterior fascicular block is now Present T wave inversion now evident in Lateral leads Confirmed by Dat Reno ([id number]) on 12/01/2023 10:43:28 AM Referred By: REFERRED SELF Confirmed By:Sridhar Reno
--- NOTE | 2023-12-01 10:47 | Electrocardiogram Report ---
Test Reason : Blood Pressure : / mmHG Vent. Rate : 047 BPM Atrial Rate : 047 BPM P-R Int : 214 ms QRS Dur : 148 ms QT Int : 494 ms P-R-T Axes : 031 -26 001 degrees QTc Int : 437 ms Sinus bradycardia with 1st degree A-V block Right bundle branch block Minimal voltage criteria for LVH, may be normal variant Abnormal ECG When compared with ECG of 01-DEC-2023 00:45, (unconfirmed) Sinus rhythm has replaced Atrial fibrillation Vent. rate has decreased BY 94 BPM Left anterior fascicular block is no longer Present T wave inversion now evident in Inferior leads T wave inversion no longer evident in Lateral leads Confirmed by Dat Reno ([id number]) on 12/01/2023 10:47:11 AM Referred By: REFERRED SELF Confirmed By:Sridhar Reno
[2023-12-01 13:11] LABS: ANTI-Xa, UFH(UnfractionatedHep 0.41 IU/ml (0.3-0.7)
--- NOTE | 2023-12-01 14:35 | Communication Note ---
Date of Service: December 01, 2023 Patient was seen and examined at bedside. 78-year-old lady with PMH of T2DM, metabolic syndrome, hypothyroidism, HLD, CKD stage III, chronic sinusitis, HTN, sinus bradycardia, right bundle branch block presented to the ED 11/30 with complaint of palpitation and was noted to be in A- fib. She did feel mild chest discomfort with palpitation. She denied shortness of breath or dizziness or headache, recent flulike illness or febrile illness. Of note, patient on routine check in September was found to have bradycardia, heart rate in 40s, was following EP and had a plan for pacemaker in the coming months. She is being managed for the following: A-fib with RVR, new onset History of bradycardia with underlying conduction disease Tachycardia-bradycardia syndrome Likely demand ischemia: Troponin elevated likely in the setting of A-fib RVR Patient noted to be in A-fib with RVR at presentation, started on Cardizem drip but was discontinued due to heart rates dropping to 30s. Admitting TSH wnl. EKG w/ AFib rvr w/ rate of 141. Continue with telemetry monitoring, monitor replete electrolytes. Echo with EF of 60 to 65%, LV wall motion is normal. Mild concentric LVH noted. N.p.o. for now, plan for pacemaker placement likely today. Resume diet with cardiology clearance. Cardiology on board, appreciate recommendation Other chronic medical conditions: Continue with/resume home meds as and when able T2DM: Sliding scale insulin while in hospital Hypothyroidism: TSH is normal, continue home Synthroid Hypertension: Continue home amlodipine and lisinopril and hydrochlorothiazide Hypertriglyceridemia: Continue home statin, icosapent Ethyl and gemfibrozil CKD stage III: Baseline creatinine around 1.2, admitting creatinine about baseline. DVT prophylaxis: Hep sq after possible Sx Ix. Disposition: Continue telemetry monitoring Full code
[2023-12-01] MEDS: ASPIRIN 81 MG ECTAB PO SCH (21:13)
[2023-12-01] MEDS: OMEGA-3 (PURIFIED FISH OIL) 1 GM CAP PO SCH (21:13)
[2023-12-02 06:44] LABS: Hematocrit (blood only) 36.2 % (37.0-47.0); Hemoglobin 12.5 g/dl (12.0-16.0); Mean Corpuscular Hemoglobin 29.7 pg (25.0-34.0); Mean Corpuscular Hgb Conc 34.5 g/dL (32.0-36.0); Mean Platelet Volume 10.9 fL (9.4-12.4); Platelet Count 161 K/uL (130-400); RDW Coefficient of Variation 14.1 % (11.5-14.5); RDW Standard Deviation 43.3 fL (36.4-46.3); Red Blood Count 4.21 M/uL (4.20-5.40); White Blood Count 3.61 K/ul (4.8-10.8)
[2023-12-02 06:49] LABS: BUN Creatinine Ratio 30.3 (10-20); Calcium 9.2 mg/dl (8.6-10.3); Creatinine Clr Calc Pharmacy 45.9 ml/min; Est GFR (African American) 57.1 ml/min; Est GFR (Non-African American) 49.3 ml/min; Magnesium 2.2 mg/dl (1.7-2.4); Phosphorus 4.1 mg/dl (2.5-4.9); Potassium 3.6 mmol/L (3.5-5.1)
--- NOTE | 2023-12-02 07:34 | Cardiology Progress Note ---
Date of Service December 02, 2023 Assessment & Plan (1) Rapid atrial fibrillation: (2) Tachy-redd syndrome: Plan IMPRESSION: 78 year old female with history of SSS now with newly diagnosed PAF with RVR/TBS. Tele: On arrival AFIB 130s. Diltiazem gtt started, rates lowered to the 80s. Converted to SR/SB 40-50s at 05:54 am with 3.6 sec conversion pause. Echocardiogram: LVEF 60 to 65% with normal wall motion. Mild concentric LVH. Moderate aortic sclerosis, no stenosis. Trace MR/TR. PLAN: TBS + PAF RVR: Remain NPO for PPM implantation today CHADSVASC score of 5 (age 4, Female, HTN, DM)-- IV heparin on hold for procedure. K goal of 4.0 and mag goal of 2.0-- replace as needed Hs Troponin elevated: 11>>96.6, likely in the setting of demand with AFIB RVR. Case discussed with Dr. Manuel. Will follow. I spent a total of 30 minutes on the date of service in preparation, delivery, and documentation of the care provided to the patient excluding any time spent in the performance of separately billed services. BERE Pagan Department of Cardiology, [facility] This chart was completed in part utilizing Speech Voice Recognition Software. Grammatical errors, random word insertions, pronoun errors, and incomplete sent ences are an occasional consequence of this system due to software limitations, ambient noise, and hardware issues. Any formal questions or concerns about the content, text, or information contained within the body of this dictation should be directly addressed to the provider for clarification. Admission and Anticipated Discharge Date Admission Date: December 01, 2023 Supervising Physician Co-Signing Physician Notes Patient was seen and examined personally. Plan of care discussed with advanced provider as above. Personally endorsed by myself No further atrial fibrillation with paroxysmal atrial fibrillation with tachybradycardia syndrome noted. Remains in sinus bradycardia heart rates in the 40s N.p.o. after midnight last Anticipated pacemaker later today Will require anticoagulation on discharge, transition to Eliquis if formulary allow I spent a total of 20 minutes on the date of service in preparation, delivery, and documentation of the care provided to the patient in addition to above documented time Subjective 78 year old female with history of SSS now with newly diagnosed PAF with RVR/TBS. Tele: On arrival AFIB 130s. Diltiazem gtt started, rates lowered to the 80s. Converted to SR/SB 40-50s at 05:54 am with 3.6 sec conversion pause. Echocardiogram: LVEF 60 to 65% with normal wall motion. Mild concentric LVH. Moderate aortic sclerosis, no stenosis. Trace MR/TR. 12/02/2023: Currently n.p.o. for pacemaker implantation this morning Telemetry: SB 30-40s. No return of PAF. Upon entrance into the room patient up getting cleaned up. No acute concerns. No events overnights- notes that she slept well. No chest pain, shortness of breath, No palpitations or lightheadedness. No orthopnea, PND, or lower extremtity edema. Review of Systems Review of Systems: All systems reviewed & are unremarkable except as noted in HPI & below Physical Exam Constitutional: well developed and well nourished; no acute distress Neck: normal visual inspection and trachea midline Respiratory: normal respiratory effort; no respiratory distress Cardiovascular: Rate/Rhythm: regular rhythm and + bradycardic Heart Sounds: normal S1 and normal S2 Vessels: no JVD Extremities: no edema Gastrointestinal (Abdomen): normal bowel sounds, soft, nontender, no hepatosplenomegaly Skin: no rashes, warm and dry Neurologic: PERRL, EOMI, accommodation nl, no face palsy, no dysarthria Psychiatric: A+Ox3, euthymic affect Results & Data Vital Signs (Past 12 Hours) Vital Signs Temp Pulse Pulse Resp BP BP Pulse Ox 12/02/23 06:00 12/02/23 02:15 36.5 C 42 L 17 123/55 L 94 12/01/23 23:27 49 L 12/01/23 23:11 36.4 C L 49 L 16 112/57 L 92 12/01/23 20:00 O2 Del Method O2 Del Method 12/02/23 06:00 Room Air 12/02/23 02:15 Room Air 12/01/23 23:27 12/01/23 23:11 Room Air 12/01/23 20:00 Room Air Laboratory Results Cardiac Enzymes 12/01/23 12/01/23 Range/Units 12:23 18:56 Troponin I High Sens 76.9 H* D 52.3 H* D (0-14) pg/ml CBC 04/18/24 Range/Units 05:58 WBC 3.61 L (4.8-10.8) K/ul RBC 4.21 (4.20-5.40) M/uL Hgb 12.5 (12.0-16.0) g/dl Hct 36.2 L (37.0-47.0) % Plt Count 161 (130-400) K/uL Comprehensive Metabolic Panel 12/02/23 Range/Units 05:58 Sodium 140 (136-145) mmol/L Potassium 3.6 (3.5-5.1) mmol/L Chloride 109 H (98-107) mmol/L Carbon Dioxide 22 (21-32) mmol/L BUN 33 H (6-23) mg/dl Creatinine 1.09 (0.6-1.2) mg/dl Glucose 131 H (70-99(Fasting)) mg/dl Calcium 9.2 (8.6-10.3) mg/dl Intake and Output 12/01/23 12/02/23 12/02/23 22:59 06:59 14:59 Intake Total 475 / 1602.333 400 / 1602.333 Output Total Balance 475 / 1602.333 400 / 1602.333 - Intake: Oral 475 / 875 400 / 875 Output: # Bowel Movements Other: # Unmeasured Voids Weight 83.461 kg Weight Measurement Method Built in [facility]
--- NOTE | 2023-12-02 09:15 | Electrocardiogram Report ---
Test Reason : Blood Pressure : / mmHG Vent. Rate : 041 BPM Atrial Rate : 041 BPM P-R Int : 216 ms QRS Dur : 158 ms QT Int : 554 ms P-R-T Axes : 039 -28 -02 degrees QTc Int : 457 ms Marked sinus bradycardia with 1st degree A-V block Right bundle branch block Abnormal ECG When compared with ECG of 01-DEC-2023 08:00, T wave inversion less evident in Anterior leads Confirmed by Dat Reno ([id number]) on 12/02/2023 9:15:03 AM Referred By: REFERRED SELF Confirmed By:Sridhar Reno
[2023-12-02] MEDS: POTASSIUM CHLORIDE CRTAB 20 MEQ TABCR PO STA (09:24)
--- NOTE | 2023-12-02 14:03 | Pre Anesthesia Assessment ---
Date of Service December 02, 2023 Pre Sedation Assessment Vital Signs Temp Pulse Pulse Resp BP BP Pulse Ox 12/02/23 13:38 36.8 C 45 L 18 162/58 H 96 12/02/23 11:51 36.4 C L 63 18 108/64 93 12/02/23 07:39 36.3 C L 43 L 18 129/50 L 97 12/02/23 06:00 12/02/23 02:15 36.5 C 42 L 17 123/55 L 94 12/01/23 23:27 49 L 12/01/23 23:11 36.4 C L 49 L 16 112/57 L 92 12/01/23 20:00 12/01/23 19:29 36.3 C L 44 L 20 118/65 95 12/01/23 16:52 36.6 C 46 L 18 124/70 96 12/01/23 14:20 43 L 14 94 12/01/23 14:10 51 L 11 L 94 O2 Del Method O2 Del Method 12/02/23 13:38 Room Air 12/02/23 11:51 Room Air 12/02/23 07:39 Room Air 12/02/23 06:00 Room Air 12/02/23 02:15 Room Air 12/01/23 23:27 12/01/23 23:11 Room Air 12/01/23 20:00 Room Air 12/01/23 19:29 Room Air 12/01/23 16:52 Room Air 12/01/23 14:20 12/01/23 14:10 Cardiovascular RRR, no murmur, no edema + bradycardic Respiratory normal respiratory effort, lungs clear to auscultation Pre-Sedation Airway Assessment Smoking Status: Never smoker Hx Sleep Apnea: No Short, Thick Neck: Yes Thyromental Distance: > or= 3.5 Finger Breadths Oral Cavity: + Capped Teeth Mallampati Class: III ASA: ASA3 NPO Status Date of Last Intake of Fluids: 12/01/23 Date of Last Intake of Solid Food: 12/01/23 Procedure Planning Contraindications for Sedation: none Current Medications Reviewed: Yes Notes The planned sedation has been discussed with the patient. Informed Consent was obtained. I have identified the patient, determined the appropriateness of sedation and have assessed the patient immediately prior to the procedure. All medicine(s) and interventions are by my order.
--- NOTE | 2023-12-02 14:03 | History & Physical Bridge Note ---
Date of Service December 02, 2023 History & Physical Bridge Note I have examined the patient, reviewed the History & Physical and in the interval since the performance of the History & Physical I have noted the following changes of clinical significance: Pt admitted with pAF converted to SB and due to TBS was recommended that she have her pacemaker that was intially scheduled on 12/15/23 to today prior to hospital discharge. I re-discussed the procedure and potential risks she expressed an understanding and consents signed.
[2023-12-02] MEDS: LIDOCAINE 1% LOCAL 20 ML VIAL ONE (15:13)
[2023-12-02] MEDS: VANCOMYCIN HCL 1000MG/20ML VIAL ONE (15:13)
[2023-12-02] MEDS: WATER, STERILE FOR INJ 10 ML VIAL ONE (15:14)
[2023-12-02] MEDS: fentaNYL citrate PF 100 MCG/2 ML VIAL ONE (15:14)
[2023-12-02] MEDS: ceFAZolin 330 MG/ML 1 GM VIAL ONE (15:14)
[2023-12-02] MEDS: MIDAZOLAM HCL 5 MG/ML 1 ML VIAL ONE (15:14)
[2023-12-02] MEDS: BUPIVACAINE 0.25% PF 30 ML VIAL ONE (15:14)
--- NOTE | 2023-12-02 15:24 | Post Anesthesia Assessment ---
Date of Service December 02, 2023 Post Sedation Assessment Vital Signs Temp Pulse Pulse Resp BP BP Pulse Ox 12/02/23 13:38 36.8 C 45 L 18 162/58 H 96 12/02/23 11:51 36.4 C L 63 18 108/64 93 12/02/23 07:39 36.3 C L 43 L 18 129/50 L 97 12/02/23 06:00 12/02/23 02:15 36.5 C 42 L 17 123/55 L 94 12/01/23 23:27 49 L 12/01/23 23:11 36.4 C L 49 L 16 112/57 L 92 12/01/23 20:00 12/01/23 19:29 36.3 C L 44 L 20 118/65 95 12/01/23 16:52 36.6 C 46 L 18 124/70 96 O2 Del Method O2 Del Method 12/02/23 13:38 Room Air 12/02/23 11:51 Room Air 12/02/23 07:39 Room Air 12/02/23 06:00 Room Air 12/02/23 02:15 Room Air 12/01/23 23:27 12/01/23 23:11 Room Air 12/01/23 20:00 Room Air 12/01/23 19:29 Room Air 12/01/23 16:52 Room Air Recovery Score Activity: Moves 4 extremities Respiration: Deep Breath/Cough Circulation: +/-20% PreAnes Value Consciousness: Fully Awake Oxygen Saturation: > 92% On Room Air Discharge Sedation Level of Care: Fast Track Phase II Post Sedation Plan On clinical assessment, the patient appears to have tolerated the sedation without complications. Patient is recovering as anticipated. Patient will continue to be monitored by nursing and may be discharged when sedation discharge criteria are met per below protocol. Upon Completions of procedure up to 15 minutes continue every 5 minute vital signs and the P.A.R. score; then discharge to a Phase I or Fast Track to Phase II per the following guidelines: * Discharge Patient to appropriate Phase II area if PAR is 8 or greater or return to pre- procedure baseline. The post - procedure orders will be as directed. * If PAR score is less than 8 or not return to pre-procedure baseline then patient will follow Phase I monitoring till PAR is reached for Phase II. The Phase I may be done in procedure room or may call to secure a Phase I area. * If naloxone or flumazenil are used for reversal, hold in Phase I for continued monitoring from when last reversal dose was given for a minimum of 60 minutes or longer pending the nurse and/or physician discretion of patient condition before discharge to Phase II. Please call the Sedation Physician to re-evaluate and complete post-note for discharge to Phase II area. Do NOT discharge from procedure sedation or Phase 1 until post- sedation evaluation note is complete by procedure /sedation MD Sedation Discharge Instructions to be given to the patient at discharge to home.
--- NOTE | 2023-12-02 15:35 | Operative Report ---
Post Operative Report DICTATED BY:Tara Villarreal D.O. DATE OF PROCEDURE: 12/02/2023. PREOPERATIVE DIAGNOSES: Tachy-redd syndrome POSTOPERATIVE DIAGNOSIS: Same PROCEDURE: A dual-chamber rate responsive permanent pacemaker and intracardiac electrogram His bundle recordings, along with a peripheral venogram under fluoroscopic guidance. SURGEON: Tara Villarreal DO ASSISTANTS: None. ANESTHESIA: Monitored conscious sedation administered under my supervision by Aly Owusu. Start time 14:22, end time 15:20, a total of 3 mg of Versed and 75 mcg of fentanyl. INTRAVENOUS FLUIDS: 90 mL. CONTRAST: 12 mL. ANTIBIOTICS: 2 grams of Ancef. ADDITIONAL MEDICATIONS: None BLOOD LOSS: 60 mL. URINE OUTPUT: Not applicable. SPECIMENS: None. FINDINGS: See below. DRAINS: None. COMPLICATIONS: None. CONDITION: Stable. INDICATIONS: This is a 78-year-old female SSS, 1st degree AV block, RBBB, HTN, HLD, DM, hypothyroidism, DM, metabolic syndrome. She was admitted to [facility] due to newly found AF with RVR and then converted to SB. Due to the TBS and SSS she was recommended a pacemaker prior to hospital discharge. CONSENT: Consent was obtained prior to the patient going into the electrophysiology lab. The patient was informed of the risks, benefits, and alternatives to the procedure. Risks include, but not limited to, sudden cardiac , cardiac arrhythmias, cerebrovascular accident, myocardial infarction, injury to his blood vessels, chamber of the heart and lung, bleeding and infection. The patient understood these risks and agreed to the procedure as planned. Informed consent was obtained. DESCRIPTION OF PROCEDURE: The patient was brought into electrophysiology lab in a fasting state. She was connected to continuous cardiac monitoring. A timeout was performed to ensure the patient's identity and procedure correctly. She was prepped and draped in the left infraclavicular space in normal surgical standard fashion. Monitored conscious sedation was given throughout the procedure for the patient's comfort level. [place] precautions were maintained throughout the procedure. Prophylactic antibiotics were given prior to incision. A 20 mL of 1% lidocaine and bupivacaine mixture were given in the left deltopectoral groove. An incision was made in the left deltopectoral groove. Blunt dissection was performed down to the pectoralis muscle. Then, using blunt dissection over the pectoralis muscle within the pectoral fascia, a pacemaker pocket was created. Then, a peripheral venogram was performed to identify the axillary vein. Venous axillary access was obtained through a needlestick without any problems. A guidewire was inserted without any resistance. A 6- [place] sheath was inserted over the guidewire without any resistance. Dilator was removed and a second guidewire was inserted through the sheath to allow for retained venous access. Then a 9 [place] sheath was inserted over one of the guidewires. The guidewire and dilator were removed. Then, the [employer] 3D medium sheath was inserted through the 9-[place] sheath over a Glidewire into the right ventricle. The Glidewire and dilator were removed. Then, the left bundle lead was advanced through the sheath and intracardiac electrogram His bundle recordings were performed when the camera was in KAUFMAN 10. Once I found where the His bundle is, see below for results, I then moved the camera to KAUFMAN 30 and marked where the His bundle was on my fluoroscopy screen. I came down about 2 cm from this in a line that would extend out to the apex and then started coming on pacing. Once I found an area where I had a nice W formed pace complex in my lead V1, I then moved the camera to ARABIC 30. Then the helix was extended into the septum. Then the helix locking tool was placed. Then the lead was screwed further into the septum while pacing by giving slow clockwise turns. The paced complex changed to a nice R' in V1 and the pacing stim to peak QRS in V6 was good. I then gave contrast through the sheath to see how far the lead was into the septum and then I slit the [employer] Agent 3D medium sheath under fluoroscopic guidance and left the 9-[place] sheath in while I positioned the right atrial lead. A 6-[place] sheath was inserted over the retained guidewire, the guidewire and dilator removed. The right atrial lead was then advanced into right atrium and positioned into right atrial appendage under fluoroscopic guidance. There was adequate pacing and sensing thresholds and no diaphragmatic stimulation with high output pacing. The 6-[place] sheath was peeled away and the lead was fixated to the pectoralis muscle using 0 silk suture. The 9-[place] sheath around the left bundle lead was peeled away and the lead was fixated to pectoralis muscle using 0 silk suture. The pocket was flushed with copious amounts of vancomycin and saline wash and inspected for hemostasis. The leads were then attached to the pulse generator making sure the pins were in appropriate position, passed set screws, and set screws were all tightened. Pulse generator was then placed in the pocket, making sure the leads were lying flat beneath the device. The incision was closed in a 3-layer fashion using 2-0 Vicryl interrupted suture, followed by 3-0 Vicryl interrupted suture, followed by 4-0 Monocryl running stitch. Then a primaseal dressing was placed EQUIPMENT: 1. Pulse generator is a Deskidea MRI Model Number [id number] SN: [id number] 2. Right atrial lead, SafeAwake SJM Tendril STS 8TC SN: [id number] 3. Left bundle lead, Sargent SJM Tendril STS 8TC SN: [id number] INTRAPROCEDURAL FINDINGS: 1. Intracardiac electrogram His bundle recordings, AH is 120 milliseconds, HV is 76 milliseconds. 2. Right atrial lead, P waves 4.6 millivolts, impedance 587 ohms, threshold 1.5 volts at 0.4 milliseconds. 3. Left bundle lead, R waves 6.8 millivolts, impedance 655 ohms, threshold 2 volts at 0.4 milliseconds. FINAL MEASUREMENTS THROUGH THE DEVICE: 1. Right atrial lead, P waves 4.6millivolts, impedance 680 ohms, threshold 1.5 volt at 0.4 milliseconds. 2. Left bundle lead, R waves 6.8 millivolts, impedance 560 ohms, threshold 1.5 volts at 0.4 milliseconds. FINAL PARAMETERS: DDDR 60/120, right atrial amplitude 3.5 volts, pulse width 0.4 milliseconds, sensitivity 0.5 millivolts. Left bundle lead amplitude 3.5 volts, pulse width 0.4 milliseconds, sensitivity 2 millivolts. IMPRESSION: Successful dual chamber rate responsive permanent pacemaker under f luoroscopic guidance along with peripheral venogram and intracardiac electrogram His bundle recordings, all under fluoroscopic guidance secondary to SSS/TBS PLAN: Monitor the patient post-procedure. A 12-lead ECG, chest x-ray. She is not to lift the left elbow or left shoulder for 1 month. She cannot lift more than 10 pounds with the left arm for 2 weeks. She is to keep the dressing on and dry until his wound check next week. Wear a surgical bra for next few weeks to assist with wound healing.
--- NOTE | 2023-12-02 16:58 | Hospitalist Progress Note ---
Date of Service December 02, 2023 Assessment & Plan (1) Rapid atrial fibrillation: Plan 78-year-old lady with PMH of T2DM, metabolic syndrome, hypothyroidism, HLD, CKD stage III, chronic sinusitis, HTN, sinus bradycardia, right bundle branch block presented to the ED 11/30 with complaint of palpitation and was noted to be in A- fib. She did feel mild chest discomfort with palpitation. She denied shortness of breath or dizziness or headache, recent flulike illness or febrile illness. Of note, patient on routine check in September was found to have bradycardia, heart rate in 40s, was following EP and had a plan for pacemaker in the coming months. She is being managed for the following: A-fib with RVR, new onset History of bradycardia with underlying conduction disease Tachycardia-bradycardia syndrome Likely demand ischemia: Troponin elevated likely in the setting of A-fib RVR Patient noted to be in A-fib with RVR at presentation, started on Cardizem drip but was discontinued due to heart rates dropping to 30s. Admitting TSH wnl. EKG w/ AFib rvr w/ rate of 141. Continue with telemetry monitoring, monitor replete electrolytes. Echo with EF of 60 to 65%, LV wall motion is normal. Mild concentric LVH noted. For pacemaker placement today. Resume diet with cardiology clearance. Cardiology on board, appreciate recommendation Other chronic medical conditions: Continue with/resume home meds as and when able T2DM: Sliding scale insulin while in hospital Hypothyroidism: TSH is normal, continue home Synthroid Hypertension: Continue home amlodipine and lisinopril and hydrochlorothiazide Hypertriglyceridemia: Continue home statin, icosapent Ethyl and gemfibrozil CKD stage III: Baseline creatinine around 1.2, admitting creatinine about baseline. DVT prophylaxis: on eliquis Disposition: Continue telemetry monitoring Full code Admission and Anticipated Discharge Date Admission Date: December 01, 2023 Subjective Patient was seen and examined at bedside. Patient was lying in bed, on room air, NAD, resting comfortably. Patient denies any chest pain or palpitation, patient has stayed bradycardic while in patient. Physical Exam Physical Exam: General- Not in distress Head- atraumatic Eyes- PERRL. ENT- oropharynx clear Neck- supple, no JVD. Lungs- clear to auscultation no wheezing or crackles. Heart- irregular rhythm; bradycardia, no murmur, no gallop Abdomen- normal bowel sounds, soft, nontender, no distension Extremities- no pretibial edema, no erythema seen Neuro- alert, oriented PERRL, no facial palsy; no dysarthria; moves extremit ies. Skin- warm & dry Results & Data Results & Data Vital Signs (Past 12 Hours) Vital Signs Temp Pulse Resp BP BP Pulse Ox O2 Del Method 12/02/23 16:38 60 18 157/84 H 97 Room Air 12/02/23 16:08 36.5 C 60 18 137/78 98 Room Air 12/02/23 15:35 60 16 139/64 97 Room Air 12/02/23 13:38 36.8 C 45 L 18 162/58 H 96 Room Air 12/02/23 11:51 36.4 C L 63 18 108/64 93 Room Air 12/02/23 07:39 36.3 C L 43 L 18 129/50 L 97 Room Air 12/02/23 06:00 O2 Del Method 12/02/23 16:38 12/02/23 16:08 12/02/23 15:35 12/02/23 13:38 12/02/23 11:51 12/02/23 07:39 12/02/23 06:00 Room Air
[2023-12-02] MEDS: ACETAMINOPHEN 325 MG TAB PO PRN (17:25)
--- NOTE | 2023-12-02 18:31 | XRay Report ---
SINGLE VIEW CHEST CLINICAL HISTORY: Status post pacemaker implantation. FINDINGS: An AP, portable, upright chest radiograph is compared to study dated 12/01/2023. A 2-lead ca rdiac pacemaker has been placed and partially obscures the left upper chest. Leads project over the r ight appendage and the right ventricle. The heart is enlarged noting atherosclerotic calcification of the thoracic aorta. The pulmonary vasculature is noncongested. There is mild bibasilar scarring/atel ectasis. The lungs and pleural spaces are otherwise clear. No pneumothorax is seen. The skeletal stru ctures are osteopenic. The bony thorax is grossly intact. IMPRESSION: 1. A 2-lead cardiac pacemaker has been implanted as above. No pneumothorax is seen post procedure. 2. Cardiomegaly without radiographic evidence of congestive failure. 3. No airspace consolidation or pleural effusion is identified. ACT 112: Negative or not required by law. Electronically signed by: Pavan Merchant M.D. 12/02/2023 6:30 PM
[2023-12-02] MEDS: METOPROLOL SUCC 25MG EXT REL TAB PO SCH (20:16)
[2023-12-03 07:49] LABS: Hemoglobin 14.1 g/dl (12.0-16.0); Mean Corpuscular Hemoglobin 29.5 pg (25.0-34.0); Mean Corpuscular Hgb Conc 33.6 g/dL (32.0-36.0); Mean Corpuscular Volume 87.9 fL (80.0-100.0); Mean Platelet Volume 10.4 fL (9.4-12.4); Platelet Count 171 K/uL (130-400); RDW Coefficient of Variation 13.8 % (11.5-14.5); RDW Standard Deviation 43.8 fL (36.4-46.3); Red Blood Count 4.78 M/uL (4.20-5.40); White Blood Count 5.27 K/ul (4.8-10.8)
[2023-12-03 08:11] LABS: BUN Creatinine Ratio 24.1 (10-20); Blood Urea Nitrogen 28 mg/dl (6-23); Carbon Dioxide 25 mmol/L (21-32); Chloride 105 mmol/L (98-107); Creatinine Clr Calc Pharmacy 42.2 ml/min; Est GFR (Non-African American) 45.7 ml/min; Glucose 130 mg/dl (70-99(Fasting))
[2023-12-03 08:55] LABS: Magnesium 2.2 mg/dl (1.7-2.4); Phosphorus 3.6 mg/dl (2.5-4.9)
[2023-12-03] MEDS: APIXABAN 5 MG TABLET PO SCH (08:57)
--- NOTE | 2023-12-03 11:45 | Cardiology Progress Note ---
Date of Service December 03, 2023 Assessment & Plan (1) Rapid atrial fibrillation: (2) Tachy-redd syndrome: Plan IMPRESSION: 78 year old female with history of SSS now with newly diagnosed PAF with RVR/TBS. Tele: On arrival AFIB 130s. Diltiazem gtt started, rates lowered to the 80s. Converted to SR/SB 40-50s at 05:54 am with 3.6 sec conversion pause. Echocardiogram: LVEF 60 to 65% with normal wall motion. Mild concentric LVH. Moderate aortic sclerosis, no stenosis. Trace MR/TR. PLAN: TBS + PAF RVR: Remain NPO for PPM implantation today CHADSVASC score of 5 (age 4, Female, HTN, DM)-- IV heparin on hold for procedure. K goal of 4.0 and mag goal of 2.0-- replace as needed Hs Troponin elevated: 11>>96.6, likely in the setting of demand with AFIB RVR. 12/03/2023 Patient doing well. No atrial fibrillation Pacemaker site healing well Patient started on beta-shanice with Toprol-XL 25 mg twice per day for blood pressure and arrhythmia We will stop amlodipine Eliquis initiate Patient stable for discharge if ambulatory without symptoms I spent a total of 30 minutes on the date of service in preparation, delivery, and documentation of the care provided to the patient excluding any time spent in the performance of separately billed services. This chart was completed in part utilizing Speech Voice Recognition Software. Grammatical errors, random word insertions, pronoun errors, and incomplete sentences are an occasional consequence of this system due to software limitations, ambient noise, and hardware issues. Any formal questions or concerns about the content, text, or information contained within the body of this dictation should be directly addressed to the provider for clarification. Admission and Anticipated Discharge Date Admission Date: December 01, 2023 Subjective Patient seen and examined, chart, medications telemetry reviewed Feels well this morning pacemaker site healing well. Pacemaker functioning normally on telemetry. No recurrence of atrial fibrillation Review of Systems Review of Systems: All systems reviewed & are unremarkable except as noted in Subjective Physical Exam Constitutional: well developed and well nourished; no acute distress Eyes: PERRL, conjunctivae normal, anicteric sclerae Neck: normal visual inspection and trachea midline Respiratory: normal respiratory effort, lungs clear to auscultation normal respiratory effort; no respiratory distress Cardiovascular: RRR, no murmur, no edema Rate/Rhythm: regular rhythm Heart Sounds: normal S1 and normal S2 Vessels: no JVD Extremities: no edema Chest (Breasts): Chest: + pacemaker (Incisional site without hematoma) Gastrointestinal (Abdomen): normal bowel sounds, soft, nontender, no hepatosplenomegaly Skin: no rashes, warm and dry Neurologic: PERRL, EOMI, accommodation nl, no face palsy, no dysarthria Psychiatric: A+Ox3, euthymic affect Results & Data Vital Signs (Past 12 Hours) Vital Signs Temp Pulse Pulse Resp BP BP Pulse Ox 12/03/23 11:42 36.4 C L 61 18 90/56 L 95 12/03/23 09:00 63 12/03/23 07:40 12/03/23 07:33 36.4 C L 60 19 146/75 H 98 12/03/23 02:43 36.4 C 60 18 101/58 L 95 12/02/23 23:47 36.7 C 60 18 127/69 96 O2 Del Method 12/03/23 11:42 Room Air 12/03/23 09:00 12/03/23 07:40 Room Air 12/03/23 07:33 Room Air 12/03/23 02:43 Room Air 12/02/23 23:47 Room Air Laboratory Results Laboratory Results - last 24 hr 12/02/23 12/02/23 12/02/23 11:52 16:33 20:26 WBC RBC Hgb Hct MCV MCH MCHC RDW Std Deviation RDW Coeff of Bala Plt Count MPV Sodium Potassium Chloride Carbon Dioxide Anion Gap BUN Creatinine Est Cr Clr Drug Dosing Est GFR ( Amer) Est GFR (Non-Af Amer) BUN/Creatinine Ratio Glucose POC Glucose 159 H 105 H 137 H Calcium Phosphorus Magnesium 12/03/23 12/03/23 12/03/23 07:29 08:02 08:24 WBC 5.27 RBC 4.78 Hgb 14.1 Hct 42.0 MCV 87.9 MCH 29.5 MCHC 33.6 RDW Std Deviation 43.8 RDW Coeff of Bala 13.8 Plt Count 171 MPV 10.4 Sodium TNP 140 Potassium TNP 4.0 Chloride 105 Carbon Dioxide 25 Anion Gap TNP BUN 28 H Creatinine 1.16 Est Cr Clr Drug Dosing 42.2 Est GFR ( Amer) 53.0 Est GFR (Non-Af Amer) 45.7 BUN/Creatinine Ratio 24.1 H Glucose 130 H POC Glucose 121 H Calcium 10.0 Phosphorus TNP 3.6 Magnesium TNP 2.2
--- NOTE | 2023-12-03 12:54 | Discharge Summary ---
Date of Service December 03, 2023 Admission HPI Per Admitting Provider 78-year-old female with past medical history significant for type 2 diabetes, metabolic syndrome, hypothyroidism, hyperlipidemia, CKD stage III, chronic sinusitis, hypertension, sinus bradycardia, right bundle branch block presents with palpitations and found to be in rapid A-fib. Patient states around 10 PM she felt fluttering in her heart when she checked her pulse rate it was in the 150s. Usually heart rates are low. She felt mild chest discomfort. [place] somewhat hot. No shortness of breath or dizziness. No nausea. No headache. No runny nose or sore throat. No cough. No fevers. No abdominal pain. Normal bowel and bladder movements. Denies any blood in stools. Otherwise active. Patient on routine check in September was found to be have bradycardia. Heart rate in the 40s. She had Holter as outpatient which showed no significant symptomatic bradycardia events or pauses. She followed with EP because of underlying conduction system disease there is plan for pacemaker. She has appointment on December 14. Because of her recent 's back surgery things were delayed. In the ER she was started on Cardizem drip. Currently heart rates in the 80s. Resting comfortably. Past medical history. As mentioned above Past surgical history. Colonoscopy. Social history. . No smoking. No alcohol use. No drug use. Family history. Mother had pancreatic cancer. Hypertension. Sister has diabetes. CA. Hypertension. Brother has CABG in 50s. Father of massive CA at age 55. Admission Exam Per Admitting Provider General- Not in distress Head- atraumatic Eyes- PERRL. ENT- oropharynx clear Neck- supple, no JVD. Lungs- clear to auscultation no wheezing or crackles. Heart- irregular rhythm; no murmur, no gallop Abdomen- normal bowel sounds, soft, nontender, no distension Extremities- no pretibial edema, no erythema seen Neuro- alert, oriented PERRL, no facial palsy; no dysarthria; moves extremities. 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 ENT- oropharynx clear Neck- supple, no JVD. Lungs- clear to auscultation no wheezing or crackles. Heart- irregular rhythm; bradycardia, no murmur, no gallop Left upper chest /w clean dressing w/o soakage. Abdomen- normal bowel sounds, soft, nontender, no distension Extremities- no pretibial edema, no erythema seen Neuro- alert, oriented PERRL, no facial palsy; no dysarthria; moves extremities. Skin- warm & dry Discharge Data Allergies Allergy/AdvReac Type Severity Reaction Status Date / Time exenatide [From Byetta] Allergy Intermediate NAUSEA, Verified 12/01/23 02:01 RASH liraglutide [From Victoza] Allergy Intermediate RASH Verified 12/01/23 02:01 Consultations 12/01/23 03:20 ED Decision to Admit Stat 12/01/23 08:00 Consult Cardiology Routine Procedures Performed Operation Date: 12/02/23 13:30 Actual Procedures p Pacer with A/V Leads (Dual) - Tara Villarreal DO Ordered Studies 12/02/23 07:00 EP Lab Images for PACS ONCE Hospital Course (1) Rapid atrial fibrillation: Plan 78-year-old lady with PMH of T2DM, metabolic syndrome, hypothyroidism, HLD, CKD stage III, chronic sinusitis, HTN, sinus bradycardia, right bundle branch block presented to the ED 11/30 with complaint of palpitation and was noted to be in A- fib. She did feel mild chest discomfort with palpitation. She denied shortness of breath or dizziness or headache, recent flulike illness or febrile illness. Of note, patient on routine check in September was found to have bradycardia, heart rate in 40s, was following EP and had a plan for pacemaker in the coming months. She was managed for the following: A-fib with RVR, new onset History of bradycardia with underlying conduction disease Tachycardia-bradycardia syndrome Likely demand ischemia: Troponin elevated likely in the setting of A-fib RVR Patient noted to be in A-fib with RVR at presentation, started on Cardizem drip but was discontinued due to heart rates dropping to 30s. Admitting TSH wnl. EKG w/ AFib rvr w/ rate of 141. Status post PPM placement 12/01, patient doing well, no atrial fibrillation. Echo with EF of 60 to 65%, LV wall motion is normal. Mild concentric LVH noted. Patient reports moving around with no problems. Patient to continue with Eliquis and metoprolol. Amlodipine has been discontinued. Patient to follow-up with PCP and cardiology in a week time upon discharge. Other chronic medical conditions: Continue with/resume home meds as and when able T2DM: Sliding scale insulin while in hospital Hypothyroidism: TSH is normal, continue home Synthroid Hypertension: Continue home lisinopril and hydrochlorothiazide. Amlodipine discontinued. Hypertriglyceridemia: Continue home statin, icosapent Ethyl and gemfibrozil CKD stage III: Baseline creatinine around 1.2, admitting creatinine about baseline. DVT prophylaxis: on eliquis Disposition: To home Full code Patient is being discharged to home with following instruction at the point of discharge: Follow-up with your primary care physician within a week time and likely you will need labs CBC/CMP/magnesium/phosphorus. You underwent pacemaker placement in this hospital admission, you were started on Eliquis and metoprolol. Your amlodipine has been discontinued. Follow-up with cardiology next week. Take your medications as prescribed. Please make sure that you are able to get your medications today by calling your pharmacy before you leave the hospital so that your treatment continuity is not broken. Home Health Attestation I certify that this patient is under my care and that I, or a physicians assistant controller working with me, had a face to-face encounter that meets the home health [id number] encounter requirements with this patient. The encounter with the patient was in whole, or in part, for the following medical condition, which is the primary reason for home health care (list medical condition): I certify that, based on my findings, the following services are medically necessary home health services: My clinical findings support the need for the above services because: Further, I certify that my clinical findings support that this patient is homebound (i.e. absences from home require considerable and taxing effort and are for medical reasons or religion services or infrequently or of short duration when for other reasons) because: Certification for Home Health Services: Based on the above findings, I certify that this patient is confined to the home and needs intermittent senior living care, physical therapy and/or speech therapy or continues to need occupational therapy. The patient is under my care, and I have initiated the establishment of the plan of care. This patient will be followed by a physician who will periodically review the plan of care. 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 Activity: As commented below Activity Comment: do not raise the left elbow over the shoulder for 1 month Lifting: No more than 10 pounds Lifting Comment: do not lift more than 10 pounds with the left arm for 2 weeks Bathing: Keep incision dry Bathing Comment: keep dressing on & dry until wound check next week Non-emergency contact: Primary Care Provider Call non-emergency contact if: you have any medication questions, your symptoms worsen and your temperature is above 101.5 Follow-up/Referrals: Claire Gabriel DO [Primary Care Provider] - Diet: Heart Healthy Addmalachi Attending Provider Instructions: Follow-up with your primary care physician within a week time and likely you will need labs CBC/CMP/magnesium/phosphorus. You underwent pacemaker placement in this hospital admission, you were started on Eliquis and metoprolol. Your amlodipine has been discontinued. Follow-up with cardiology next week. Take your medications as prescribed. Please make sure that you are able to get your medications today by calling your pharmacy before you leave the hospital so that your treatment continuity is not broken. 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 Instructions: Device and wound check at [facility] next week Pending Studies at Discharge: No Stand-Alone Forms: My [facility] tracx, Smoking Cessation Medications and DC Order Prescriptions: New Eliquis 5 mg Tablet 5 mg PO BID Qty: 60 0RF metoprolol succinate 25 mg Tablet Extended Release 24 Hr 25 mg PO BID Qty: 60 0RF Continued Jardiance 25 mg tablet 25 mg PO QAM lisinopril-hydrochlorothiazide 20-25 mg tablet 1 tab PO QAM levothyroxine [Levo-T] 75 mcg tablet 75 mcg PO DAILYBB rosuvastatin [Crestor] 5 mg tablet 5 mg PO QAM gemfibrozil [Lopid] 600 mg Tablet 600 mg PO BIDM coenzyme Q10 [Co Q-10] 100 mg Capsule 200 mg PO QAM pregabalin [Lyrica] 300 mg Capsule 300 mg PO BID glipizide 2.5 mg Tablet Extended Release 24hr 2.5 mg PO QAM biotin 1 mg Tablet 1 mg PO QAM aspirin [Adult Aspirin Regimen] 81 mg tablet,delayed release (DR/EC) 81 mg PO HS Rx Instructions: TAke to prevent blood clots. icosapent ethyl [Vascepa] 1 gram capsule 2 g PO BIDM vitamin B complex-folic acid [B Complex 1 (with folic acid)] 0.4 mg Tablet 1 tab PO DAILY Tradjenta 5 mg tablet 5 mg PO QAM Women's 50 Plus Multivitamin 400 mcg-500 mg calcium-20 mcg Tablet 1 tab PO DAILY amoxicillin 500 mg tablet 2,000 mg PO DIRECTED PRN (Reason: 1 HR PRIOR TO DENTAL PROCEDURES) Discontinued amlodipine 2.5 mg tablet 2.5 mg PO QAM Discharge Orders: Discharge Order (Routine); Ordered 12/03/23 Ordered By: Sindy Peterson Admission Data Admit Date/Time: 12/01/23 04:23 Attending Provider: Sindy Peterson Admit Provider: Luis Manuel Loo Primary Care Provider: Claire Gabriel Other Providers: Luis Manuel Loo; Arnoldo Manuel
--- NOTE | 2023-12-04 05:48 | Electrocardiogram Report ---
Test Reason : Blood Pressure : / mmHG Vent. Rate : 060 BPM Atrial Rate : 060 BPM P-R Int : 178 ms QRS Dur : 152 ms QT Int : 500 ms P-R-T Axes : -08 -34 087 degrees QTc Int : 500 ms AV dual-paced rhythm Abnormal ECG When compared with ECG of 02-DEC-2023 05:27, Electronic ventricular pacemaker has replaced Sinus rhythm Confirmed by Dat Reno ([id number]) on 12/04/2023 5:47:28 AM Referred By: REFERRED SELF Confirmed By:Sridhar Reno
--- NOTE | 2023-12-04 05:59 | Electrocardiogram Report ---
Test Reason : Blood Pressure : / mmHG Vent. Rate : 060 BPM Atrial Rate : 060 BPM P-R Int : 220 ms QRS Dur : 118 ms QT Int : 444 ms P-R-T Axes : 000 -35 025 degrees QTc Int : 444 ms AV dual-paced rhythm with prolonged AV conduction Abnormal ECG When compared with ECG of 02-DEC-2023 18:23, (unconfirmed) No significant change was found Confirmed by Dat Reno ([id number]) on 12/04/2023 5:59:02 AM Referred By: REFERRED SELF Confirmed By:Sridhar Reno
== END 2023-12-03 14:14 | disposition home or self-care (01) | DRG 243 ==
LOC: ED 00:39 → EDINP 04:23 → 4W 16:54